=== PATIENT | female | born 1980 | race Hispanic/Latino ===

== ENCOUNTER 2018-08-29 10:26 | Emergency (ER) | payer SELFPAY ==
[2018-08-29] MEDS ORDERED: HYDROCODONE/APAP 5/325 MG TAB ONE (11:40)
[2018-08-29] MEDS ORDERED: KETOROLAC 30 MG/ML INJ ONE (11:40)
[2018-08-29] MEDS ORDERED: ONDANSETRON 4 MG/2 ML VIAL ONE (12:56)
[2018-08-29] MEDS ORDERED: MORPHINE 4 MG/ML SYR ONE (12:56)
[2018-08-29 13:07] LABS: Absolute Lymphocytes (CBC) 2.2 K/uL (0.7-4.9); Absolute Monocytes 0.5 K/uL (0.1-1.3); Absolute Neutrophil 4.2 K/uL (1.8-8.0); Basophils % 0.7 % (0-1.3); Eosinophils % 2.1 % (0-4.4); Lymphocytes % 30.6 % (15.3-44.8); MPV 8.6 fL (7.6-11.3); Monocytes % 7.5 % (3.3-12.3); RBC Red Blood Cell Count 4.22 M/uL (3.86-4.86)
[2018-08-29 13:39] LABS: BUN Blood Urea Nitrogen 9 mg/dL (7-18); Bicarbonate 27 mmol/L (21-32); Glucose Level 87 mg/dL (74-106); Potassium 3.8 mmol/L (3.5-5.1); Sodium Level 140 mmol/L (136-145)
--- NOTE | 2018-08-29 13:40 | RAD REPORT ---
EXAM DESCRIPTION: RAD - Shoulder Left 2 View - 08/29/2018 1:32 pm CLINICAL HISTORY: Left shoulder pain FINDINGS: No fracture or dislocation is seen. No bone or joint abnormality is seen
--- NOTE | 2018-08-29 13:40 | RAD REPORT ---
EXAM DESCRIPTION: RAD - Pelvis - 08/29/2018 1:33 pm CLINICAL HISTORY: Pelvic pain FINDINGS: No fracture or dislocation is seen. No bone or joint abnormality noted
--- NOTE | 2018-08-29 13:41 | RAD REPORT ---
EXAM DESCRIPTION: RAD - Knee Left 3 View - 08/29/2018 1:33 pm CLINICAL HISTORY: Left knee pain FINDINGS: No fracture or dislocation is seen. No bone or joint abnormality
--- NOTE | 2018-08-29 14:15 | ER ---
Nurse's Notes [facility] Name: Lennie Peguero Age: 38 yrs Sex: Female : 1980 Arrival Date: 08/29/2018 Time: 10:28 Bed 24 Private MD: Stefano Mack H Diagnosis: Pain in unspecified shoulder;Pain in unspecified hip;Pain in knee Presentation: 08/29 10:45 Presenting complaint: Patient states: L sided neck pain, radiates down L arm that began ss 08/14/18. Denies injury. Transition of care: patient was not received from another setting of care. Onset of symptoms was August 14, 2018. Risk Assessment: Do you want to hurt yourself or someone else? Patient reports no desire to harm self or others. Initial Sepsis Screen: Does the patient meet any 2 criteria? No. Patient's initial sepsis screen is negative. Does the patient have a suspected source of infection? No. Patient's initial sepsis screen is negative. Care prior to arrival: None. 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 - Social history:: Smoking status: Patient uses tobacco products, smokes one-half pack cigarettes per day. - Ebola Screening: : Patient denies exposure to infectious person Patient denies travel to an Ebola-affected area in the 21 days before illness onset. Screenin:11 Abuse screen: Denies threats or abuse. Nutritional screening: No deficits noted. tw2 Tuberculosis screening: No symptoms or risk factors identified. Fall Risk None identified. Assessment: 11:10 General: Appears in no apparent distress. well groomed, Behavior is calm, cooperative, tw2 appropriate for age. Pain: Pain radiates to left arm Pain began 2-3 days ago. Neuro: Level of Consciousness is awake, alert, obeys commands, Oriented to person, place, time, situation. Cardiovascular: Heart tones S1 S2 Capillary refill < 3 seconds. Respiratory: Airway is patent Respiratory effort is even, unlabored, Respiratory pattern is regular, symmetrical, Breath sounds are clear bilaterally. GI: No signs and/or symptoms were reported involving the gastrointestinal system. : No signs and/or symptoms were reported regarding the genitourinary system. EENT: No signs and/or symptoms were reported regarding the EENT system. Derm: No signs and/or symptoms reported regarding the dermatologic system. Musculoskeletal: Circulation, motion, and sensation intact. 12:20 Reassessment: Patient appears in no apparent distress at this time. No changes from tw2 previously documented assessment. Patient and/or family updated on plan of care and expected duration. Pain level reassessed. Patient is alert, oriented x 3, equal unlabored respirations, skin warm/dry/pink. 13:42 Reassessment: Patient appears in no apparent distress at this time. Patient and/or tw2 family updated on plan of care and expected duration. Pain level reassessed. Patient is alert, oriented x 3, equal unlabored respirations, skin warm/dry/pink. 14:13 Reassessment: provider at bedside at this time. tw2 14:14 Reassessment: Patient appears in no apparent distress at this time. Patient and/or tw2 family updated on plan of care and expected duration. Pain level reassessed. Patient is alert, oriented x 3, equal unlabored respirations, skin warm/dry/pink. Vital Signs: 10:47 BP 143 / 93; Pulse 90; Resp 16; Temp 97.8(TE); Pulse Ox 100% on R/A; Weight 69.85 kg; ss Height 5 ft. 0 in. (152.40 cm); Pain 8/10; 11:36 BP 126 / 98; Pulse 90; Resp 17; Pulse Ox 100% on R/A; tw2 12:30 BP 130 / 71; Pulse 59; Resp 17; Pulse Ox 99% on R/A; tw2 13:42 BP 124 / 99; Pulse 77; Resp 17; Pulse Ox 100% on R/A; tw2 10:47 Body Mass Index 30.08 (69.85 kg, 152.40 cm) ED Course: 10:28 Patient arrived in ED. sb2 10:29 Stefano Mack DO is Private Physician. sb2 10:46 Triage completed. ss 10:47 Arm band placed on right wrist. ss 11:04 Evans Hanson PA is PHCP. [facility] 11:04 Kait Estrella MD is Attending Physician. jmm 11:10 Suzanne Merritt, JEANNIE is Primary Nurse. tw2 11:10 Placed in gown. Bed in low position. Call light in reach. Adult w/ patient. Cardiac tw2 monitor on. Pulse ox on. NIBP on. 11:10 Patient maintains SpO2 saturation greater than 95% on room air. tw2 11:20 Inserted saline lock: 22 gauge in left antecubital area, using aseptic technique. Blood tw2 collected. 13:30 Patient moved to radiology via wheelchair. jb2 13:31 Shoulder Left (2 View) XRAY In Process Unspecified. EDMS 13:31 Pelvis XRAY In Process Unspecified. EDMS 13:31 Knee Left 3 View XRAY In Process Unspecified. EDMS 13:51 X-ray completed. Patient tolerated procedure well. Patient moved back from radiology. mh1 14:13 No provider procedures requiring assistance completed. IV discontinued, intact, tw2 bleeding controlled, No redness/swelling at site. Pressure dressing applied. 14:14 Stefano Mack DO is Referral Physician. [facility] Administered Medications: 11:34 Drug: Ketorolac 30 mg Route: IM; Site: right deltoid; tw2 12:59 Follow up: Response: No adverse reaction; Pain is unchanged, physician notified tw2 11:36 Drug: [place] 5 mg-325 mg 1 tabs Route: PO; tw2 12:59 Follow up: Response: No adverse reaction; Pain is unchanged, physician notified tw2 12:55 Drug: Zofran 4 mg Route: IVP; Site: right antecubital; tw2 14:17 Follow up: Response: No adverse reaction tw2 12:58 Drug: morphine 4 mg Route: IVP; Site: right antecubital; tw2 14:17 Follow up: Response: No adverse reaction; Pain is decreased tw2 Outcome: 14:14 Discharged to home ambulatory, with family. tw2 14:14 Condition: stable 14:14 Discharge instructions given to patient, family, Instructed on discharge instructions, follow up and referral plans. no drinking with medication, no driving heavy equipment, medication usage, Demonstrated understanding of instructions, follow-up care, medications, Prescriptions given X 2. 14:15 Discharge ordered by . saige 14:32 Patient left the ED. tw2 Signatures: Dispatcher [employer] EDMS Evans Hanson PA PA jmm Buechter, Jesse jb2 Kitty June mh1 Orin Grande RN RN ss Suzanne Merritt RN RN tw2 Isela Sam 2
--- NOTE | 2018-08-29 14:16 | EDPHYS ---
Physician Documentation [facility] Name: Lennie Peguero Age: 38 yrs Sex: Female : 1980 Arrival Date: 08/29/2018 Time: 10:28 Bed 24 Private MD: Stefano Mack H ED Physician Kait Estrella HPI: 08/29 11:12 This 38 yrs old Female presents to ER via Ambulatory with complaints of Arm jmm Pain. 11:12 The patient or guardian complains of pain. Onset: The symptoms/episode began/occurred jmm gradually, 5 day(s) ago. Modifying factors: The symptoms are alleviated by remaining still, the symptoms are aggravated by movement. Associated signs and symptoms: Pertinent negatives: fever. This is a 38 year old female with no chronic medical conditions that presents to the ED with complaints of left shoulder pain which began 5 days ago. Patient states then developing pain to the left side of her neck, hips bilaterally, and left knee. Patient denies injury. . 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 - Social history:: Smoking status: Patient uses tobacco products, smokes one-half pack cigarettes per day. - Ebola Screening: : Patient denies exposure to infectious person Patient denies travel to an Ebola-affected area in the 21 days before illness onset. ROS: 11:12 Constitutional: Negative for fever, chills, and weight loss, Cardiovascular: Negative jmm for chest pain, palpitations, and edema, Respiratory: Negative for shortness of breath, cough, wheezing, and pleuritic chest pain. 11:12 MS/extremity: Positive for pain. 11:12 All other systems are negative. Exam: 11:12 Head/Face: atraumatic. Eyes: EOMI, no conjunctival erythema appreciated ENT: Moist jmm Mucus Membranes 11:12 Chest/axilla: Normal chest wall appearance and motion. Cardiovascular: Regular rate and rhythm. No edema appreciated Respiratory: Normal respirations, no respiratory distress appreciated 11:12 Constitutional: The patient appears in no acute distress, alert, awake. 11:12 Neck: C-spine: appears grossly normal, ROM/movement: is normal, mild tenderness on palpation of the left trapezius muscle. 11:12 Musculoskeletal/extremity: ROM: painful rom noted on abduction of the left shoulder, painful rom noted on flexion, internal, and external rotations of the hips bilaterally, pain on flexion of the left knee. compartments are soft, full pulses are appreciated. . 11:12 Skin: Appearance: Color: normal in color. 11:12 Neuro: Orientation: is normal, Mentation: is normal, Memory: is normal. 11:12 Psych: Behavior/mood is pleasant, cooperative. Vital Signs: 10:47 BP 143 / 93; Pulse 90; Resp 16; Temp 97.8(TE); Pulse Ox 100% on R/A; Weight 69.85 kg; ss Height 5 ft. 0 in. (152.40 cm); Pain 8/10; 11:36 BP 126 / 98; Pulse 90; Resp 17; Pulse Ox 100% on R/A; tw2 12:30 BP 130 / 71; Pulse 59; Resp 17; Pulse Ox 99% on R/A; tw2 13:42 BP 124 / 99; Pulse 77; Resp 17; Pulse Ox 100% on R/A; tw2 10:47 Body Mass Index 30.08 (69.85 kg, 152.40 cm) ss MDM: 11:12 Patient medically screened. [facility] 14:14 Data reviewed: vital signs, nurses notes, lab test result(s), radiologic studies, plain [facility] films. Counseling: I had a detailed discussion with the patient and/or guardian regarding: the historical points, exam findings, and any diagnostic results supporting the discharge/admit diagnosis, lab results, radiology results, the need for outpatient follow up, to return to the emergency department if symptoms worsen or persist or if there are any questions or concerns that arise at home. Response to treatment: the patient's symptoms have markedly improved after treatment, and as a result, I will discharge patient. 08/29 12:44 Order name: ESR; Complete Time: 13:45 [facility] 08/29 12:44 Order name: CBC with Diff; Complete Time: 13:45 [facility] 08/29 11:27 Order name: Shoulder Left (2 View) XRAY; Complete Time: 13:45 [facility] 08/29 11:27 Order name: Pelvis XRAY; Complete Time: 13:45 [facility] 08/29 11:27 Order name: Knee Left 3 View XRAY; Complete Time: 13:45 [facility] 08/29 12:44 Order name: BMP; Complete Time: 13:45 [facility] 08/29 12:43 Order name: Saline Lock; Complete Time: 12:59 [facility] Administered Medications: 11:34 Drug: Ketorolac 30 mg Route: IM; Site: right deltoid; tw2 12:59 Follow up: Response: No adverse reaction; Pain is unchanged, physician notified tw2 11:36 Drug: [place] 5 mg-325 mg 1 tabs Route: PO; tw2 12:59 Follow up: Response: No adverse reaction; Pain is unchanged, physician notified tw2 12:55 Drug: Zofran 4 mg Route: IVP; Site: right antecubital; tw2 14:17 Follow up: Response: No adverse reaction tw2 12:58 Drug: morphine 4 mg Route: IVP; Site: right antecubital; tw2 14:17 Follow up: Response: No adverse reaction; Pain is decreased tw2 Disposition: 18:44 Co-signature as Attending Physician, Kait Estrella MD. ma2 Disposition: 08/29/18 14:15 Discharged to Home. Impression: Pain in unspecified shoulder, Pain in unspecified hip, Pain in knee. - Condition is Stable. - Discharge Instructions: Joint Pain. - Prescriptions for Ultracet 37.5- 325 mg Oral Tablet - take 1 tablet by ORAL route every 6 hours - for up to 5 days; do not exceed 8 tablets per day.; 20 tablet. orphenadrine citrate 100 mg Oral Tablet Sustained Release - take 1 tablet by ORAL route 2 times per day As needed; 20 tablet. - Medication Reconciliation Form, Thank You Letter, Antibiotic Education, Prescription Opioid Use, Work release form, Family Work Release form. - Follow up: Stefnao Mack, ; When: 1 - 2 days; Reason: Recheck today's complaints, Continuance of care, Re-evaluation by your physician. Signatures: Dispatcher [employer] EDEvans Lange PA PA jmm Smirch, Shelby, RN RN ss Suzanne Merritt RN RN 2 Kait Estrella MD MD hi2 Corrections: (The following items were deleted from the chart) 14:32 14:15 08/29/2018 14:15 Discharged to Home. Impression: Pain in unspecified shoulder; tw2 Pain in unspecified hip; Pain in knee. Condition is Stable. Forms are Work release form, Medication Reconciliation Form, Thank You Letter, Antibiotic Education, Prescription Opioid Use. Follow up: Stefano Mack; When: 1 - 2 days; Reason: Recheck today's complaints, Continuance of care, Re-evaluation by your physician. saige
[2018-08-29 15:42] VITALS: TEMP 97.8
[2018-08-29 15:47] VITALS: BP 124/99; O2SAT 100
== END 2018-08-29 14:32 | disposition home or self-care (01) ==
LOC: ER 10:26
DX: M25.512 Pain in left shoulder (principal); M25.552 Pain in left hip; M25.562 Pain in left knee
CPT/HCPCS: 36415; 72170; 80048; 85025; 85652; 96372; 96374; 96375; 99285; J2405

== ENCOUNTER 2018-12-05 11:37 | Emergency (ER) | payer SELFPAY ==
--- NOTE | 2018-12-05 12:43 | ER ---
Nurse's Notes [facility] Name: Lennie Peguero Age: 38 yrs Sex: Female : 1980 Arrival Date: 12/05/2018 Time: 11:39 Bed 10 Private MD: Diagnosis: Dental Abscess Presentation: 12/05 11:45 Presenting complaint: Patient states: R jaw/cheek swelling that began yesterday, also ph reports nausea, denies fever/chills or vomiting, states, " I had a tooth that was hurting up there a few days ago but I'm not really in any pain. The swelling just concerned me.". Transition of care: patient was not received from another setting of care. Onset of symptoms was December 05, 2018. Risk Assessment: Do you want to hurt yourself or someone else? Patient reports no desire to harm self or others. Initial Sepsis Screen: Does the patient meet any 2 criteria? No. Patient's initial sepsis screen is negative. Does the patient have a suspected source of infection? No. Patient's initial sepsis screen is negative. Care prior to arrival: None. 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 - Social history:: Smoking status: Patient/guardian denies using tobacco. - Ebola Screening: : No symptoms or risks identified at this time. Screenin:55 Abuse screen: Denies threats or abuse. Denies injuries from another. Nutritional ph screening: No deficits noted. Tuberculosis screening: No symptoms or risk factors identified. Fall Risk None identified. Assessment: 12:20 General: Appears in no apparent distress. comfortable, well groomed, Behavior is calm, ph cooperative, appropriate for age, Denies fever, chills. Pain: Denies pain. Neuro: Level of Consciousness is awake, alert, obeys commands, Oriented to person, place, time, situation. Cardiovascular: Capillary refill < 3 seconds in bilateral fingers Patient's skin is warm and dry. Respiratory: Airway is patent Respiratory effort is even, unlabored, Respiratory pattern is regular, symmetrical, Denies shortness of breath. GI:. GI: Reports nausea, Patient currently denies diarrhea, vomiting. Derm: Skin is intact, is healthy with good turgor, Skin is pink, warm \\T\\ dry. Musculoskeletal: Swelling present in right cheek. Vital Signs: 11:44 BP 118 / 87; Pulse 96; Resp 18; Temp 98.2(O); Pulse Ox 98% on R/A; Weight 71.21 kg; ph Height 5 ft. 0 in. (152.40 cm); Pain 0/10; 11:44 Body Mass Index 30.66 (71.21 kg, 152.40 cm) ph ED Course: 11:39 Patient arrived in ED. as 11:47 Triage completed. ph 11:47 Arm band placed on Patient placed in waiting room, Patient notified of wait time. ph 12:22 Evans Hanson PA is PHCP. [facility] 12:23 Merlin Handley MD is Attending Physician. [facility] 12:42 Andrews Hawthorne DDS is Referral Physician. [facility] 12:43 Orin Grande, JEANNIE is Primary Nurse. ss 12:55 Patient has correct armband on for positive identification. Bed in low position. Call ph light in reach. Side rails up X 1. NIBP on. Door closed. Noise minimized. 12:56 No provider procedures requiring assistance completed. Patient did not have IV access ph during this emergency room visit. Administered Medications: 12:47 Drug: Clindamycin 300 mg Route: PO; ss 12:56 Follow up: Response: No adverse reaction ph 13:01 Follow up: Response: No adverse reaction; Medication administered at discharge. Outcome: 12:43 Discharge ordered by . [facility] 13:02 Discharged to home ambulatory, with significant other. 13:02 Condition: good 13:02 Discharge instructions given to patient, significant other, Instructed on discharge instructions, follow up and referral plans. medication usage, Demonstrated understanding of instructions, follow-up care, medications, Prescriptions given X 2. 13:02 Patient left the ED. Signatures: Evans Hanson PA PA jmm Martinez, Amelia as Smirch, Shelby, RN RN Bolivar, Marine, RN RN ph
--- NOTE | 2018-12-05 12:43 | EDPHYS ---
Physician Documentation [facility] Name: Lennie Peguero Age: 38 yrs Sex: Female : 1980 Arrival Date: 12/05/2018 Time: 11:39 Bed 10 Private MD: ED Physician Merlin Handley HPI: 12/05 12:40 This 38 yrs old Female presents to ER via Ambulatory with complaints of jmm Abscess. 12:40 The patient presents with pain, swelling. Onset: The symptoms/episode began/occurred jmm gradually, 1 day(s) ago. Duration: The symptoms are continuous. Associated signs and symptoms:. This is a 38 year old male with no chronic medical conditions that presents to the ED with complaints of right sided facial pain and swelling. Denies fever and chills. . 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 - Social history:: Smoking status: Patient/guardian denies using tobacco. - Ebola Screening: : No symptoms or risks identified at this time. ROS: 12:40 Constitutional: Negative for fever, chills, and weight loss, Cardiovascular: Negative jmm for chest pain, palpitations, and edema, Respiratory: Negative for shortness of breath, cough, wheezing, and pleuritic chest pain. 12:40 ENT: Positive for dental pain. 12:40 All other systems are negative. Exam: 12:40 Constitutional: This is a well developed, well nourished patient who is awake, alert, jmm and in no acute distress. 12:40 Neck: Trachea midline, Supple Chest/axilla: Normal chest wall appearance and motion. Cardiovascular: Regular rate and rhythm. No edema appreciated Respiratory: Normal respirations, no respiratory distress appreciated Abdomen/GI: Non distended, soft Skin: General appearance color normal MS/ Extremity: Moves all extremities, no obvious deformities appreciated, no edema noted to the lower extremities Neuro: Awake and alert, normal gait 12:40 Head/face: mild right sided maxillary facial swelling. 12:40 ENT: Dental exam: gum swelling, that is moderate, specifically in the upper right first molar (#3) and upper right second bicuspid (#4). 12:40 Neck: no submandibular tenderness appreciated. Vital Signs: 11:44 BP 118 / 87; Pulse 96; Resp 18; Temp 98.2(O); Pulse Ox 98% on R/A; Weight 71.21 kg; ph Height 5 ft. 0 in. (152.40 cm); Pain 0/10; 11:44 Body Mass Index 30.66 (71.21 kg, 152.40 cm) ph MDM: 12:40 Patient medically screened. [facility] 12:41 Data reviewed: vital signs, nurses notes. Counseling: I had a detailed discussion with saige the patient and/or guardian regarding: the historical points, exam findings, and any diagnostic results supporting the discharge/admit diagnosis, the need for outpatient follow up, to return to the emergency department if symptoms worsen or persist or if there are any questions or concerns that arise at home. 12:45 ED course: No submandibular tenderness appreciated. I do not suspect ludwigs angina. I saige advised the patient to follow up with oral surgery and otherwise given strict return precautions. patient understood and agrees with the plan of care. . Administered Medications: 12:47 Drug: Clindamycin 300 mg Route: PO; 12:56 Follow up: Response: No adverse reaction ph 13:01 Follow up: Response: No adverse reaction; Medication administered at discharge. ss Disposition: 12/06 06:52 Co-signature as Attending Physician, Merlin Handley MD I agree with the assessment and kdr plan of care. Disposition: 12/05/18 12:43 Discharged to Home. Impression: Dental Abscess. - Condition is Stable. - Discharge Instructions: Dental Abscess. - Prescriptions for Clindamycin HCl 300 mg Oral Capsule - take 1 capsule by ORAL route every 6 hours for 10 days; 40 capsule. Ultracet 37.5- 325 mg Oral Tablet - take 1 tablet by ORAL route every 6 hours - for up to 5 days; do not exceed 8 tablets per day.; 12 tablet. - Medication Reconciliation Form, Thank You Letter, Antibiotic Education, Prescription Opioid Use form. - Follow up: Andrews Hawthorne DDS; When: 2 - 3 days; Reason: Recheck today's complaints, Continuance of care, Re-evaluation by your physician. Signatures: Merlin Handley MD MD kdr Mickail, Joel, PA PA jmm Smirch, Shelby, JEANNIE RN ss Marine Bolivar RN RN ph Corrections: (The following items were deleted from the chart) 12/05 13:02 12:43 12/05/2018 12:43 Discharged to Home. Impression: Dental Abscess. Condition is ss Stable. Forms are Medication Reconciliation Form, Thank You Letter, Antibiotic Education, Prescription Opioid Use. Follow up: Andrews Hawthorne; When: 2 - 3 days; Reason: Recheck today's complaints, Continuance of care, Re-evaluation by your physician. saige
[2018-12-05] MEDS ORDERED: CLINDAMYCIN HCL 150 MG CAP ONE (12:59)
[2018-12-05 13:06] VITALS: BP 118/87; TEMP 98.2; O2SAT 98
== END 2018-12-05 13:02 | disposition home or self-care (01) ==
LOC: ER 11:37
DX: K04.7 Periapical abscess without sinus (principal)
CPT/HCPCS: 99283

== ENCOUNTER 2019-06-29 17:49 | Emergency (ER) | payer SELFPAY ==
[2019-06-29] MEDS ORDERED: HYDROCODONE/APAP 5/325 MG TAB ONE (19:44)
[2019-06-29] MEDS ORDERED: KETOROLAC 30 MG/ML INJ ONE (19:44)
[2019-06-29] MEDS ORDERED: CLINDAMYCIN HCL 150 MG CAP ONE (19:44)
--- NOTE | 2019-06-29 20:13 | ER ---
Nurse's Notes [facility] Name: Lennie Peguero Age: 38 yrs Sex: Female : 1980 Arrival Date: 06/29/2019 Time: 17:51 Bed 16 Private MD: Diagnosis: Dental caries;Dental root caries Presentation: 06/29 18:18 Presenting complaint: Right upper and lower molar pain 10/10 x 2 days. Transition of care: patient was not received from another setting of care. Onset of symptoms was June 28, 2019. Risk Assessment: Do you want to hurt yourself or someone else? Patient reports no desire to harm self or others. Initial Sepsis Screen: Does the patient meet any 2 criteria? No. Patient's initial sepsis screen is negative. Does the patient have a suspected source of infection? No. Patient's initial sepsis screen is negative. Care prior to arrival: Advil at 1430. 18:18 Method Of Arrival: Ambulatory 18:18 Acuity: BRENTON 4 hb Triage Assessment: 19:00 Pain: Also complains of Toothache. 19:00 Headache History: Denies prior headaches. 19:00 Pain: Pain began 1 day ago. 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 - Social history:: Smoking status: Patient/guardian denies using tobacco. - Ebola Screening: : No symptoms or risks identified at this time. Screenin:00 Abuse screen: Denies threats or abuse. Denies injuries from another. Nutritional screening: No deficits noted. Tuberculosis screening: No symptoms or risk factors identified. Fall Risk None identified. Assessment: 19:00 General: Appears in no apparent distress. Behavior is calm, cooperative, appropriate wh for age. Pain: Complains of pain in lower left second molar (#18) and upper left second molar (#15) Pain does not radiate. Pain currently is 10 out of 10 on a pain scale. Quality of pain is described as aching. Neuro: Level of Consciousness is awake, alert, obeys commands, Oriented to person, place, time, situation, Appropriate for age Reports headache. Cardiovascular: Capillary refill < 3 seconds. Respiratory: Airway is patent Respiratory effort is even, unlabored, Respiratory pattern is regular, symmetrical. GI: Abdomen is flat, non-distended. : No signs and/or symptoms were reported regarding the genitourinary system. EENT: dental carries. Derm: Skin is intact, is healthy with good turgor, Skin is pink, warm \T\ dry. normal. Musculoskeletal: Circulation, motion, and sensation intact. 20:20 Reassessment: Patient appears in no apparent distress at this time. No changes from previously documented assessment. Patient and/or family updated on plan of care and expected duration. Pain level reassessed. Patient is alert, oriented x 3, equal unlabored respirations, skin warm/dry/pink. Vital Signs: 18:20 BP 135 / 85; Pulse 90; Resp 16; Temp 98.7; Pulse Ox 100% ; Weight 79.38 kg; Height 5 hb ft. (152.40 cm); Pain 10/10; 19:45 BP 118 / 65; Pulse 80; Resp 18; Pulse Ox 99% on R/A; wh 18:20 Body Mass Index 34.18 (79.38 kg, 152.40 cm) hb ED Course: 17:51 Patient arrived in ED. as 18:19 Triage completed. hb 18:20 Arm band placed on. hb 18:47 Kera Avery FNP-C is [facility]. snw 18:47 Wesley Kwok MD is Attending Physician. snw 19:00 Patient has correct armband on for positive identification. Bed in low position. Call light in reach. Side rails up X 1. Pulse ox on. NIBP on. 19:40 Angel Friend is Primary Nurse. wh 20:23 No provider procedures requiring assistance completed. Patient did not have IV access during this emergency room visit. Administered Medications: 19:53 Drug: Clindamycin 300 mg Route: PO; 20:25 Follow up: Response: No adverse reaction 19:55 Drug: [place] 5 mg-325 mg 1 tabs Route: PO; 20:25 Follow up: Response: No adverse reaction; Pain is decreased; RASS: Alert and Calm (0) 19:57 Drug: TORadol 30 mg Route: IM; Site: right gluteus; 20:25 Follow up: Response: No adverse reaction Outcome: 20:12 Discharge ordered by . chase 20:18 Discharged to home ambulatory. 20:18 Condition: stable 20:18 Discharge instructions given to patient, Instructed on discharge instructions, follow up and referral plans. no drinking with medication, no driving heavy equipment, medication usage, POC Dental Abscess Demonstrated understanding of instructions, follow-up care, medications, POC Prescriptions given X 3. 20:26 Patient left the ED. Signatures: Kera Avery, MEN'S GOLF COACH-C MEN'S GOLF COACH-Georgettew Agatha Cardona Heather, RN RN [place]
--- NOTE | 2019-06-29 20:14 | EDPHYS ---
Physician Documentation [facility] Name: Lennie Peguero Age: 38 yrs Sex: Female : 1980 Arrival Date: 06/29/2019 Time: 17:51 Bed 16 Private MD: ED Physician Wesley Kwok HPI: 06/29 20:10 This 38 yrs old Female presents to ER via Ambulatory with complaints of snw Headache, Toothache. 20:10 The patient presents with broken tooth/teeth. The problem is located in the lower left snw second molar (#18) and upper left second molar (#15). Onset: The symptoms/episode began/occurred suddenly, 3 day(s) ago, and became worse and became persistent. Duration: The symptoms are continuous. Associated signs and symptoms: Pertinent positives: pain, swelling. Severity of symptoms: At their worst the symptoms were moderate, severe. It is unknown whether or not the patient has had similar symptoms in the past. The patient has not recently seen a physician, awaiting insurance. 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 - Social history:: Smoking status: Patient/guardian denies using tobacco. - Ebola Screening: : No symptoms or risks identified at this time. ROS: 20:09 Constitutional: Negative for fever, chills, and weight loss, Eyes: Negative for injury, snw pain, redness, and discharge, Neck: Negative for injury, pain, and swelling, Cardiovascular: Negative for chest pain, palpitations, and edema, Respiratory: Negative for shortness of breath, cough, wheezing, and pleuritic chest pain, Abdomen/GI: Negative for abdominal pain, nausea, vomiting, diarrhea, and constipation, Back: Negative for injury and pain, : Negative for injury, bleeding, discharge, and swelling, MS/Extremity: Negative for injury and deformity, Skin: Negative for injury, rash, and discoloration, Neuro: Negative for headache, weakness, numbness, tingling, and seizure, Psych: Negative for depression, anxiety, suicide ideation, homicidal ideation, and hallucinations. 20:09 ENT: Positive for dental pain. Exam: 20:09 Constitutional: This is a well developed, well nourished patient who is awake, alert, snw and in no acute distress. Head/Face: Normocephalic, atraumatic. Eyes: Pupils equal round and reactive to light, extra-ocular motions intact. Lids and lashes normal. Conjunctiva and sclera are non-icteric and not injected. Cornea within normal limits. Periorbital areas with no swelling, redness, or edema. Neck: Trachea midline, no thyromegaly or masses palpated, and no cervical lymphadenopathy. Supple, full range of motion without nuchal rigidity, or vertebral point tenderness. No Meningismus. Chest/axilla: Normal chest wall appearance and motion. Nontender with no deformity. No lesions are appreciated. Cardiovascular: Regular rate and rhythm with a normal S1 and S2. No gallops, murmurs, or rubs. Normal PMI, no JVD. No pulse deficits. Respiratory: Lungs have equal breath sounds bilaterally, clear to auscultation and percussion. No rales, rhonchi or wheezes noted. No increased work of breathing, no retractions or nasal flaring. Abdomen/GI: Soft, non-tender, with normal bowel sounds. No distension or tympany. No guarding or rebound. No evidence of tenderness throughout. Back: No spinal tenderness. No costovertebral tenderness. Full range of motion. Skin: Warm, dry with normal turgor. Normal color with no rashes, no lesions, and no evidence of cellulitis. MS/ Extremity: Pulses equal, no cyanosis. Neurovascular intact. Full, normal range of motion. Neuro: Awake and alert, GCS 15, oriented to person, place, time, and situation. Cranial nerves II-XII grossly intact. Motor strength 5/5 in all extremities. Sensory grossly intact. Cerebellar exam normal. Normal gait. Psych: Awake, alert, with orientation to person, place and time. Behavior, mood, and affect are within normal limits. 20:09 ENT: External ear(s): are unremarkable, Ear canal(s): are normal, TM's: are normal, Nose: is normal, Mouth: is normal, Posterior pharynx: is normal, Dental exam: fractured teeth are noted, gum swelling, that is moderate, specifically in the upper left second molar (#15) and lower left second molar (#18). Vital Signs: 18:20 BP 135 / 85; Pulse 90; Resp 16; Temp 98.7; Pulse Ox 100% ; Weight 79.38 kg; Height 5 hb ft. (152.40 cm); Pain 10/10; 19:45 BP 118 / 65; Pulse 80; Resp 18; Pulse Ox 99% on R/A; wh 18:20 Body Mass Index 34.18 (79.38 kg, 152.40 cm) hb MDM: 19:14 Patient medically screened. snw 20:12 Data reviewed: vital signs, nurses notes. Data interpreted: Pulse oximetry: on room air snw is 100 %. Interpretation: normal. Counseling: I had a detailed discussion with the patient and/or guardian regarding: the historical points, exam findings, and any diagnostic results supporting the discharge/admit diagnosis, the need for outpatient follow up, to return to the emergency department if symptoms worsen or persist or if there are any questions or concerns that arise at home. Special discussion: Based on the history and exam findings, there is no indication for further emergent testing or inpatient evaluation. I discussed with the patient/guardian the need to see a dentist for further evaluation of the symptoms. I discussed with the patient/guardian the need to see the punchboard stuffer for further evaluation of the symptoms. I discussed with the patient/guardian the need to see the primary care provider for further evaluation of the symptoms. Administered Medications: 19:53 Drug: Clindamycin 300 mg Route: PO; 20:25 Follow up: Response: No adverse reaction 19:55 Drug: [place] 5 mg-325 mg 1 tabs Route: PO; 20:25 Follow up: Response: No adverse reaction; Pain is decreased; RASS: Alert and Calm (0) 19:57 Drug: TORadol 30 mg Route: IM; Site: right gluteus; 20:25 Follow up: Response: No adverse reaction Disposition: 06/29/19 20:12 Discharged to Home. Impression: Dental caries, Dental root caries. - Condition is Stable. - Discharge Instructions: Dental Caries, Adult, Dental Pain, Diet and Dental Disease, Preventive Dental Care, Adult. - Prescriptions for chlorhexidine gluconate 0.12 % Mucous Membrane mouthwash - place 15 milliliter by MUCOUS MEMBRANE route 2 times per day after brushing teeth, swish in mouth for 30 seconds then spit out; 480 milliliter. Clindamycin HCl 300 mg Oral Capsule - take 1 capsule by ORAL route every 6 hours for 10 days; 40 capsule. Tylenol- Codeine #3 300-30 mg Oral Tablet - take 2 tablets by ORAL route every 6 hours As needed; 14 tablet. - Medication Reconciliation Form, Thank You Letter, Antibiotic Education, Prescription Opioid Use, Family Work Release form. - Follow up: Emergency Department; When: As needed; Reason: Worsening of condition. Follow up: Private Physician; When: 2 - 3 days; Reason: Recheck today's complaints, Continuance of care, Re-evaluation by your physician. Addendum: 07/01/2019 07:40 Co-signature as Attending Physician, Wesley Kwok MD. r n Signatures: Kera Avery, TIN TIE MACHINE OPERATOR AUTOMATIC-C TIN TIE MACHINE OPERATOR AUTOMATIC-Csnw Wesley Kwok MD MD rn Baxter, Heather, RN RN hb Habalo, Winsy wh Corrections: (The following items were deleted from the chart) 06/29 20:26 20:12 06/29/2019 20:12 Discharged to Home. Impression: Dental caries; Dental root wh caries. Condition is Stable. Discharge Instructions: Dental Caries, Adult, Dental Pain, Diet and Dental Disease, Preventive Dental Care, Adult. Prescriptions for chlorhexidine gluconate 0.12 % Mucous Membrane mouthwash - place 15 milliliter by MUCOUS MEMBRANE route 2 times per day after brushing teeth, swish in mouth for 30 seconds then spit out; 480 milliliter, Clindamycin HCl 300 mg Oral Capsule - take 1 capsule by ORAL route every 6 hours for 10 days; 40 capsule, Tylenol-Codeine #3 300-30 mg Oral Tablet - take 2 tablets by ORAL route every 6 hours As needed; 14 tablet. and Forms are Medication Reconciliation Form, Thank You Letter, Antibiotic Education, Prescription Opioid Use. Follow up: Emergency Department; When: As needed; Reason: Worsening of condition. Follow up: Private Physician; When: 2 - 3 days; Reason: Recheck today's complaints, Continuance of care, Re-evaluation by your physician. snw
[2019-06-29 20:44] VITALS: TEMP 98.7
[2019-06-29 20:46] VITALS: BP 118/65; O2SAT 99
== END 2019-06-29 20:26 | disposition home or self-care (01) ==
LOC: ER 17:49
DX: K02.7 Dental root caries (principal)
CPT/HCPCS: 96372; 99283

== ENCOUNTER 2020-11-30 02:56 | Emergency (ER) | payer OTHER, SELFPAY ==
[2020-11-30 04:44] LABS: Urine Blood Negative (Negative); Urine Glucose Negative (Negative); Urine Protein Negative (Negative); Urine Specific Gravity 1.025 (1.005-1.030)
[2020-11-30] MEDS ORDERED: ONDANSETRON 4 MG (ODT) TAB ONE (04:57)
--- NOTE | 2020-11-30 05:56 | ER ---
Nurse's Notes [facility] Name: Lennie Peguero Age: 40 yrs Sex: Female : 1980 Arrival Date: 11/30/2020 Time: 03:03 Bed DIS3 Private MD: Diagnosis: Gastroenteritis Presentation: 11/30 03:47 Chief complaint: Patient states: pain in right low back , fever, diarrhea +nausea , no iw urinary s/s, started about 3 days ago. Coronavirus screen: Client presents with at least one sign or symptom that may indicate coronavirus-19. Ebola Screen: Patient negative for fever greater than or equal to 101.5 degrees Fahrenheit, and additional compatible Ebola Virus Disease symptoms Patient denies exposure to infectious person. Patient denies travel to an Ebola-affected area in the 21 days before illness onset. No symptoms or risks identified at this time. Initial Sepsis Screen: Does the patient meet any 2 criteria? No. Patient's initial sepsis screen is negative. Does the patient have a suspected source of infection? No. Patient's initial sepsis screen is negative. Risk Assessment: Do you want to hurt yourself or someone else? Patient reports no desire to harm self or others. Onset of symptoms was November 27, 2020. 03:47 Method Of Arrival: Ambulatory iw 03:47 Acuity: BRENTON 3 iw MANAGER VALIDATION: 03:50 LMP 11/25/2020 iw Historical: - Allergies: 03:49 No Known Allergies; iw - Home Meds: 03:49 Adderall XR Oral [Active]; iw - PMHx: 03:49 None; iw - PSHx: 03:49 right ankle; ; iw - Immunization history:: Adult Immunizations not up to date. - Social history:: Smoking status: Patient reports the use of cigarette tobacco products, smokes one-half pack cigarettes per day. Screenin:08 Abuse screen: Denies threats or abuse. Denies injuries from another. Nutritional iw screening: No deficits noted. Tuberculosis screening: No symptoms or risk factors identified. Fall Risk None identified. Assessment: 04:08 General: Appears in no apparent distress. Behavior is calm, cooperative. Pain: iw Complains of pain in right low back. Neuro: Level of Consciousness is awake, alert, obeys commands, Oriented to person, place, time, situation, Moves all extremities. Full function. Cardiovascular: Patient's skin is warm and dry. Respiratory: Respiratory effort is even, unlabored, Respiratory pattern is regular, symmetrical. GI: Abdomen is non-distended, Reports diarrhea. Derm: Skin is intact, is healthy with good turgor. Vital Signs: 03:47 BP 138 / 96; Pulse 92; Resp 16; Temp 97.2; Pulse Ox 99% on R/A; Weight 75.75 kg; Height iw 5 ft. 0 in. (152.40 cm); Pain 2/10; 03:47 Body Mass Index 32.61 (75.75 kg, 152.40 cm) iw ED Course: 03:03 Patient arrived in ED. bp1 03:49 Triage completed. iw 03:50 Arm band placed on. iw 03:52 Yu Lopez, RN is Primary Nurse. iw 04:05 Montez Krishnan MD is Attending Physician. [facility] Administered Medications: 04:46 Drug: Zofran (Ondansetron) 4 mg Route: PO; iw Outcome: 05:55 Discharge ordered by . 7 05:58 Patient left the ED. iw Signatures: Yu Lopez, JEANNIE RN Cassy Hardy [facility] Montez Krishnan MD MD 7
--- NOTE | 2020-11-30 05:56 | EDPHYS ---
Physician Documentation [facility] Name: Lennie Peguero Age: 40 yrs Sex: Female : 1980 Arrival Date: 11/30/2020 Time: 03:03 Bed DIS3 Private MD: ED Physician Montez Krishnan HPI: 11/30 05:03 This 40 yrs old Female presents to ER via Ambulatory with complaints of mh7 Nausea/Vomiting/Diarrhea, Headache, Fever. 05:03 The patient presents to the emergency department with nausea, that is mild, diarrhea, mh7 that is intermittent. Onset: The symptoms/episode began/occurred 3 day(s) ago. Possible causes: sick contacts, by family, , son. The symptoms are aggravated by nothing. The symptoms are alleviated by nothing. Associated signs and symptoms: Pertinent positives: diarrhea, nausea. 05:04 Severity of symptoms: At their worst the symptoms were moderate 2 day(s) ago, in the [facility] emergency department the symptoms have improved moderately. Whole family with similar symptoms.. 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 - Social history:: Smoking status: Patient reports the use of cigarette tobacco products, smokes one-half pack cigarettes per day. ROS: 05:04 Constitutional: Negative for fever, chills, and weight loss, Eyes: Negative for injury, mh7 pain, redness, and discharge, ENT: Negative for injury, pain, and discharge, Neck: Negative for injury, pain, and swelling, Cardiovascular: Negative for chest pain, palpitations, and edema, Respiratory: Negative for shortness of breath, cough, wheezing, and pleuritic chest pain. 05:04 : Negative for injury, bleeding, discharge, and swelling, MS/Extremity: Negative for injury and deformity, Skin: Negative for injury, rash, and discoloration, Neuro: Negative for headache, weakness, numbness, tingling, and seizure, Psych: Negative for depression, anxiety, suicide ideation, homicidal ideation, and hallucinations, Allergy/Immunology: Negative for hives, rash, and allergies, Endocrine: Negative for neck swelling, polydipsia, polyuria, polyphagia, and marked weight changes, Hematologic/Lymphatic: Negative for swollen nodes, abnormal bleeding, and unusual bruising. 05:04 Back: Positive for lower back pain, Negative for injury or acute deformity, decreased range of motion, pain at rest, pain with movement, radiated pain. Exam: 05:04 Constitutional: This is a well developed, well nourished patient who is awake, alert, mh7 and in no acute distress. Head/Face: Normocephalic, atraumatic. Eyes: Pupils equal round and reactive to light, extra-ocular motions intact. Lids and lashes normal. Conjunctiva and sclera are non-icteric and not injected. Cornea within normal limits. Periorbital areas with no swelling, redness, or edema. ENT: Nares patent. No nasal discharge, no septal abnormalities noted. Tympanic membranes are normal and external auditory canals are clear. Oropharynx with no redness, swelling, or masses, exudates, or evidence of obstruction, uvula midline. Mucous membranes moist. Neck: Trachea midline, no thyromegaly or masses palpated, and no cervical lymphadenopathy. Supple, full range of motion without nuchal rigidity, or vertebral point tenderness. No Meningismus. Chest/axilla: Normal chest wall appearance and motion. Nontender with no deformity. No lesions are appreciated. Cardiovascular: Regular rate and rhythm with a normal S1 and S2. No gallops, murmurs, or rubs. Normal PMI, no JVD. No pulse deficits. Respiratory: Lungs have equal breath sounds bilaterally, clear to auscultation and percussion. No rales, rhonchi or wheezes noted. No increased work of breathing, no retractions or nasal flaring. Abdomen/GI: Soft, non-tender, with normal bowel sounds. No distension or tympany. No guarding or rebound. No evidence of tenderness throughout. Back: No spinal tenderness. No costovertebral tenderness. Full range of motion. Skin: Warm, dry with normal turgor. Normal color with no rashes, no lesions, and no evidence of cellulitis. MS/ Extremity: Pulses equal, no cyanosis. Neurovascular intact. Full, normal range of motion. Neuro: Awake and alert, GCS 15, oriented to person, place, time, and situation. Cranial nerves II-XII grossly intact. Motor strength 5/5 in all extremities. Sensory grossly intact. Cerebellar exam normal. Normal gait. Psych: Awake, alert, with orientation to person, place and time. Behavior, mood, and affect are within normal limits. Vital Signs: 03:47 BP 138 / 96; Pulse 92; Resp 16; Temp 97.2; Pulse Ox 99% on R/A; Weight 75.75 kg; Height iw 5 ft. 0 in. (152.40 cm); Pain 2/10; 03:47 Body Mass Index 32.61 (75.75 kg, 152.40 cm) iw MDM: 05:54 Differential diagnosis: gastritis, viral gastroenteritis, gastroenteritis. Data [facility] reviewed: vital signs, nurses notes. Data interpreted: Pulse oximetry: on room air is 99 %. Interpretation: normal. Counseling: I had a detailed discussion with the patient and/or guardian regarding: the historical points, exam findings, and any diagnostic results supporting the discharge/admit diagnosis, the need for outpatient follow up, to return to the emergency department if symptoms worsen or persist or if there are any questions or concerns that arise at home. Response to treatment: the patient's symptoms have resolved after treatment, the patient's blood pressure is in an acceptable range, mental status has returned to baseline, the patient no longer shows bradycardia, the patient is not short of breath, the patient is not tachycardic, the patient's pain is gone, the patient's temperature has normalized. 05:55 Patient medically screened. [facility] 05:56 Refusal of service: The patient/guardian displays adequate decision making capability [facility] and despite a detailed discussion of alternatives, benefits, risks, and consequences refuses: prescription. 11/30 04:44 Order name: Urine Dipstick-Ancillary EDMT 11/30 04:42 Order name: Urine Dipstick-Ancillary (obtain specimen); Complete Time: 04:46 7 11/30 04:42 Order name: Urine Test (obtain specimen); Complete Time: 04:46 7 11/30 04:42 Order name: PO challenge; Complete Time: 05:02 7 Administered Medications: 04:46 Drug: Zofran (Ondansetron) 4 mg Route: PO; iw Disposition: 11/30/20 05:55 Discharged to Home. Impression: Gastroenteritis. - Condition is Stable. - Discharge Instructions: Viral Gastroenteritis, Adult, [id number]. - Medication Reconciliation Form, Thank You Letter, Antibiotic Education, Prescription Opioid Use form. - Follow up: Private Physician; When: 1 - 2 days; Reason: Worsening of condition, Recheck today's complaints, Continuance of care, Re-evaluation by your physician. - Problem is new. - Symptoms have improved. Signatures: Dispatcher [employer] Yu Ding RN RN iw Holmes, Maurice, MD MD mh7 Corrections: (The following items were deleted from the chart) 05:58 05:55 11/30/2020 05:55 Discharged to Home. Impression: Gastroenteritis. Condition is iw Stable. Forms are Medication Reconciliation Form, Thank You Letter, Antibiotic Education, Prescription Opioid Use. Follow up: Private Physician; When: 1 - 2 days; Reason: Worsening of condition, Recheck today's complaints, Continuance of care, Re-evaluation by your physician. Problem is new. Symptoms have improved. mh7
[2020-11-30 06:10] VITALS: BP 138/96; TEMP 97.2; O2SAT 99
== END 2020-11-30 05:58 | disposition home or self-care (01) ==
LOC: ER 02:56
DX: K52.9 Noninfective gastroenteritis and colitis, unspecified (principal); F17.210 Nicotine dependence, cigarettes, uncomplicated
CPT/HCPCS: 81003; 99282

== ENCOUNTER 2022-12-14 22:55 | Emergency (ER) | payer SELFPAY ==
--- OUTSIDE RECORDS SUMMARY | 2022-12-14 22:58 | XMS REPORT | Continuity of Care Document ---
:1980 Author Organization [facility] t Address [address] [facility] [place] [address] Care Team Providers Name Role Phone PCP, PATIENT DOES NOT HAVE A Primary Care Physician Unavaila KAMERON Ledesma Attending Clinician Unavailable Kameron Ta MD Attending Clinician Tonya Patiño CMA Attending Clinician TONYA PATIÑO Attending Clinician Unavailable Vicenta Bolden DO Attending Clinician VICENTA BOLDEN Attending Clinician Unavailable KAMERON TA Admitting Clinician Unavailable Payers Payer Name Policy Type Policy Number Effective Date Expiration Date S tal[place] [facility] [place] 7 [id number] 2021 WOMEN PLAN 00:00:00 [facility] [place] [id number] 2020 WOMEN 00:00:00 MEDICAID PENDING PENDING 2020 00:00:00 Problems Condition Condition Condition Status Onset Resolution Last Treating Co mments Source Name Details Category Date Date Treatment Clinician Date No known No known Disease Unive rs active active ity of problems problems [facility] Allergies, Adverse Reactions, Alerts Allergy Allergy Status Severity Reaction(s) Onset Inactive Treating Comm ents Source Name Type Date Date Clinician NO KNOWN Drug Active Univers ALLERGIE Class ity of S [facility] Social History Social Habit Start Date Stop Date Quantity Comments Source Exposure to Not sure [facility] SARS-CoV-2 (event) Medica l Branch Sex Assigned At [birth year] [facility] 00:00:00 00:00:00 Medical Branch Smoking Status Start Date Stop Date Source Unknown if ever smoked [facility] Medical Branch Medications Ordered Filled Start Stop Current Ordering Indication Dosage Frequency Signature Comments Components Source Medication Medication Date Date Medication? Clinician (SIG) Name Name morpHINE 2020-07- No 4mg 4 mg, Slow Un paulino injection 4 07-31 IV Push, ity of mg 21:00: 20:00 ONCE, 1 [place] 00 :00 dose, On Medical Mon Branch 05/31/21 at 1600, STAT ketorolac 2020-07 No 30mg 30 mg, Unive rs (TORADOL) 07-31 Slow IV ity of injection 20:45: 20:00 Push, [place] 30 mg 00 :00 ONCE, 1 Medical dose, On Branch [facility] 05/31/21 at 1545, VIRIDIANA
Fa culty member approving Restricted medication : KAMERON TA iopamidol 2020-07 No [id number] 120mL 120 mL, Univers (ISOVUE 07-31 Intravenou ity o f 370-500 mL) 18:42: 18:43 s, ONCE, 1 [place] injection 00 :00 dose, On Medica l 120 mL [facility] Branch 05/31/21 at 1400, Routine methylPREDN 2020-07 Yes [id number] Take by Univers ISolone 4 07-31 mouth ity of mg tablets 00:00: SEE-INSTRU [place] 00 CTIONS. Medical follow Branch package directions diazePAM 2020-07 Yes [id number] 5mg Take 1 Uni vers (VALIUM) 5 07-31 tablet by ity of mg tablet 00:00: mouth 3 [place] 00 (three) Medical times Branch daily as needed for Muscle Spasms. traMADoL 50 Yes [id number] 50mg Take 1 Univ ers mg tablet 9-05 tablet by ity o f 00:00: mouth [place] 00 every 6 Medical (six) Branch hours as needed for Pain (scale 4-6). Indication s: acute pain ibuprofen Yes [id number] 600mg Take 1 Univers 600 mg 9-05 tablet by ity of tablet 00:00: mouth [place] 00 every 6 Medical (six) Branch hours as needed for Pain (scale 4-6). amoxicillin Yes [id number] 500mg Take 1 Univers 500 mg 9-05 capsule by ity of capsule 00:00: mouth 3 [place] 00 (three) Medical times Branch daily. traMADoL 50 2020-0 Yes [id number] 50mg Take 1 Univ ers mg tablet 9-05 tablet by ity o f 00:00: mouth [place] 00 every 6 Medical (six) Branch hours as needed for Pain (scale 4-6). Indication s: acute pain ibuprofen 2020-0 Yes [id number] 600mg Take 1 Univers 600 mg 9-05 tablet by ity of tablet 00:00: mouth [place] 00 every 6 Medical (six) Branch hours as needed for Pain (scale 4-6). amoxicillin 2020-0 Yes [id number] 500mg Take 1 Univers 500 mg 9-05 capsule by ity of capsule 00:00: mouth 3 [place] 00 (three) Medical times Branch daily. traMADoL 50 2020-0 Yes [id number] 50mg Take 1 Univ ers mg tablet 9-05 tablet by ity o f 00:00: mouth [place] 00 every 6 Medical (six) Branch hours as needed for Pain (scale 4-6). Indication s: acute pain ibuprofen 0 Yes [id number] 600mg Take 1 Univers 600 mg 9-05 tablet by ity of tablet 00:00: mouth [place] 00 every 6 Medical (six) Branch hours as needed for Pain (scale 4-6). amoxicillin 2020-0 Yes [id number] 500mg Take 1 Univers 500 mg 9-05 capsule by ity of capsule 00:00: mouth 3 [place] 00 (three) Medical times Branch daily. ibuprofen Yes 400mg Take 1 Unive rs (MOTRIN) 8-23 tablet by ity of 400 mg 00:00: mouth [place] tablet 00 every 6 Medical (six) Branch hours as needed for Pain (scale 1-3). famotidine 0 Yes 20mg Take 1 Unive rs (PEPCID) 20 8-23 tablet by [place]y of mg tablet [place] bed[place]. Medical Branch ibuprofen 2015-0 Yes 400mg Take 1 Unive rs (MOTRIN) 8-23 tablet by ity of 400 mg 00:00: mouth [place] tablet 00 every 6 Medical (six) Branch hours as needed for Pain (scale 1-3). famotidine 2015-0 Yes 20mg Take 1 Unive rs (PEPCID) 20 8-23 tablet by ity of mg tablet [place] bed[place]. Medical Branch ibuprofen 2016-0 Yes 400mg Take 1 Unive rs (MOTRIN) 8-23 tablet by ity of 400 mg 00:00: mouth [place] tablet 00 every 6 Medical (six) Branch hours as needed for Pain (scale 1-3). famotidine 2015-0 Yes 20mg Take 1 Unive rs (PEPCID) 20 8-23 tablet by ity of mg tablet [place] bedtime. Medical Branch ibuprofen 2016-0 Yes 400mg Take 1 Unive rs (MOTRIN) 8-23 tablet by ity of 400 mg 00:00: mouth [place] tablet 00 every 6 Medical (six) Branch hours as needed for Pain (scale 1-3). famotidine 2015-0 Yes 20mg Take 1 Unive rs (PEPCID) 20 8-23 tablet by ity of mg tablet [place] bed[place]. Medical Branch Vital Signs Vital Name Observation Time Observation Value Comments Source Systolic blood 2021-05-31 20:05:00 125 mm[Hg] Univer sity of pressure [facility] Diastolic blood 2021-05-31 20:05:00 91 mm[Hg] Unive rsity of [facility] Heart rate 2021-05-31 20:05:00 71 /min [facility] Respiratory rate 2021-05-31 20:05:00 18 /min [facility] Oxygen saturation in 2021-05-31 20:05:00 100 /min [facility] Arterial blood by [facility] Pulse oximetry Branch Body temperature 2021-05-31 18:08:45 36.44 Pretty [facility] Systolic blood 2021-04-04 16:45:00 133 mm[Hg] Univer sity of [facility] Diastolic blood 2021-04-04 16:45:00 88 mm[Hg] Unive rsity of [facility] Heart rate 2021-04-04 16:45:00 84 /min [facility] Body temperature 2021-04-04 16:45:00 37 Pretty [facility] Respiratory rate 2021-04-04 16:45:00 18 /min [facility] Body weight 2021-04-04 16:45:00 70.308 kg Universi [facility] BMI 2021-04-04 16:45:00 30.27 kg/m2 [facility] Oxygen saturation in 2021-04-04 16:45:00 100 /min University of Arterial blood by [facility] Pulse oximetry Branch Body height 2020-12-29 15:53:00 152.4 cm Universi [facility] Body weight 2020-12-29 15:53:00 75.751 kg [facility] BMI 2020-12-29 15:53:00 32.61 kg/m2 [facility] Oxygen saturation in 2020-12-29 15:53:00 100 /min University of Arterial blood by [facility] Pulse oximetry Branch Systolic blood 2020-12-29 15:53:00 130 mm[Hg] [facility] Diastolic blood 2020-12-29 15:53:00 82 mm[Hg] [facility] Heart rate 2020-12-29 15:53:00 93 /min [facility] Body temperature 2020-12-29 15:53:00 36.72 Pretty [facility] Respiratory rate 2020-12-29 15:53:00 18 /min [facility] Procedures Procedure Date / Time Performing Clinician Source Performed CT ABDOMEN PELVIS W 2021-05-31 18:50:14 Kameron Ta [facility] POCT TEST 2021-05-31 18:14:00 Kameron Ta [facility] URINALYSIS 2021-05-31 18:13:00 Kameron Ta [facility] LIPASE 2021-05-31 17:49:00 Kameron Ta [facility] TROPONIN I 2021-05-31 17:49:00 Kameron Ta [facility] COMP. METABOLIC PANEL 2021-05-31 17:49:00 Kameron Ta [facility] ([id number]) [facility] CBC WITH DIFF 2021-05-31 17:49:00 Kameron Ta [facility] PROTHROMBIN TIME / INR 2021-05-31 17:49:00 Kameron Ta [facility] ACTIVATED PARTIAL 2021-05-31 17:49:00 Kameron Ta [facility] THRMPLAS BRIDGETTE [facility] N-TERMINAL PRO-BNP 2021-05-31 17:49:00 aKmeron Ta [facility] y [facility] [place] [facility] [place] ASSIGNMENT OF BENEFITS 2021-05-31 17:37:13 Doctor Unassigned, No University [facility] Name Medical Branch XR CHEST 1 2021-05-31 15:57:40 Kameron Ta [place] o f [facility] XR SPINE THORACIC 2 2021-05-31 15:57:40 Kameron Ta [facility] CONSENT/REFUSAL FOR 2021-05-31 15:01:39 Doctor Unassigned, No [facility] [place] [facility] Name Medical Branch RAPID STREP SCREEN FOR 2021-04-04 16:46:[address] [facility] GROUP A Medical [place] COVID-19 (ID NOW RAPID 2021-04-04 16:46:00 [facility] TESTING) Medical Branch CONSENT/REFUSAL FOR 2021-04-04 16:41:31 Doctor Unassigned, No [facility] [place] [facility] Name Medical Branch NOTICE OF PRIVACY 2020-12-29 15:49:02 Doctor Unassigned, No Univ [facility] [place] [facility] Name Medical Branch CONSENT/REFUSAL FOR 2020-12-29 15:48:43 Doctor Unassigned, No Un [facility] [place] [facility] Name Medical Branch Encounters Start End Encounter Admission Attending Care Care Encounter Source Date/Time Date/Time Type Type Clinicians Facility Department ID 2021-08-11 Outpatient D [facility] [id number] [facility] 13:56:21 [id number] Health Depart ent 2021-05-31 2021-05-31 Emergency X CHERISE TA ERT [id number] Univers 10:19:00 15:14:00 KAMERON pan [facility] 2021-05-31 2021-05-31 Emergency CHERISE Ta [id number] Univers 10:19:00 15:14:00 Kameron MANUEL 350.1.13.10 i ty JOE 4.2.7.2.686 [facility] [id number] [address] 2021-05-20 2021-05-20 Office ALEXANDRIA Patiño [id number] 09:51:24 12:39:13 Visit Tonya CRUZ [id number] .[id number] 2021-05-20 2021-05-20 Outpatient BRITTANI PATIÑO [facility] [id number] [address] [place] [address] 07:51:24 10:39:13 [facility] 2021-04-04 2021-04-04 [facility] [id number] Univers 11:47:00 13:08:00 Kameron Manuel 350.1.13.10 i osiel [facility] 4.2.7.2.686 [facility] [id number] [address] 2021-04-04 2021-04-04 Emergency [facility] [id number] Univers 11:47:00 11:47:00 KAMERON pan [facility] 2020-12-29 2020-12-29 [facility] [id number] Univers 10:54:00 11:20:00 Vicenta Manuel 350.1.13.10 maxim [facility] 4.2.7.2.686 [facility] [id number] [address] 2020-12-29 2020-12-29 [facility] [id number] Univers 10:48:00 10:48:00 VICENTA pan [facility] Results Test Description Test Time Test Comments Results Result Comments Source TROPONIN I 2021-05-31 18:35:03 Test Item Value Reference Range Interpretation Comme nts TROPONIN I (test code = <0.012 See_Comment [Au tomated message] The 6967310236) system which ge nerated this result tra nsmitted reference range : <=0.034 ng/mL. The refe rence range was not u sed to interpret this result as normal/abnormal . CHRISTEN (test code = CHRISTEN) Reference (Normal) Range (defined by the 99th percentile reference limit): <= 0.034 ng/mL Note: Cardiac troponin begins to rise 3-4 hours after the onset of ischemia. Repeat in 4-6 hours if the sample was drawn within 3-4 hours of the onset of the symptom and found normal. Diagnosis of myocardial injury is made with acute changes in cTn concentrations with at least one serial sample above the 99th percentile upper reference limit (URL), taken together with the patient's clinical presentation. Biotin has been reported to cause a negative bias, interpret results relative to patient's use of biotin. Lab Interpretation Normal (test code = 14398-4) [id number] 18:31:41 Test Item Value Reference Range Interpretation Comments NT-proBNP (test code 53 pg/mL See_Comment [Autom ated = [id number]) message] The system which generated this result transmitted reference range : <=125. The reference range was not used to interpret this result as normal/abnormal . CHRISTEN (test code = CHRISTEN) Biotin has been reported to cause a negative bias, interpret results relative to patient's use of biotin. Lab Interpretation Normal (test code = 82260-7) [facility] TH[facility] [id number] 18:21:42 Test Item Value Reference Range Interpretation Comments APTT Patient (test See_Comment [Automat ed code = 3173-2) message] The system which generated this result transmitted reference range : 23 - 38 Seconds . The reference range was not used to interpr et this result as normal/abnormal . CHRISTEN (test code = CHRISTEN) The [facility] patient population mean normal value for aPTT is 30 seconds. Lab Interpretation Normal (test code = 17223-5) [facility] / [id number] 18:19:42 Test Item Value Reference Range Interpretation Comments PROTIME PATIENT (test See_Comment L [Auto mated message] code = 5964-2) The system wh ich generated this result transmitted ref erence range: 12.0 - 1 4.7 Seconds. The reference range was not used to int erpret this result as normal/abnormal . INR (test code = 6301-6) Nor mal INR <1.1; Warfarin Therap eutic range 2.0 to 3. 0 or 2.5 to 3.5, dep ending upon the indica tions. Lab Interpretation (test Abnormal code = 08323-9) [facility] (05656)2021-05-31 18:17:02 Test Item Value Reference Range Interpretation Comments NA (test code = 138 mmol/L 135-145 6118052522) K (test code = 4.0 mmol/L 3.5-5.0 1144245947) CL (test code = 104 mmol/L 98-108 1110577185) CO2 TOTAL (test code 30 mmol/L 23-31 = 8840819205) AGAP (test code = 2-16 3955199712) BUN (test code = 11 mg/dL 7-23 1081786470) GLUCOSE (test code = 98 mg/dL 70-110 5005541996) CREATININE (test code 0.67 mg/dL 0.50-1.04 = 5153800092) TOTAL BILI (test code 0.3 mg/dL 0.1-1.1 = 0576837688) CALCIUM (test code = 9.3 mg/dL 8.6-10.6 9411381715) T PROTEIN (test code 8.0 g/dL 6.3-8.2 = 4747498868) ALBUMIN (test code = 4.3 g/dL 3.5-5.0 3790980424) ALK PHOS (test code = 86 U/L 34-122 3210849135) ALTv (test code = 19 U/L 5-35 1742-6) AST(SGOT) (test code 26 U/L 13-40 = 2239500800) eGFR (test code = mL/min/1.73m2 8697101241) CHRISTEN (test code = CHRISTEN) Association of Glomerular Filtration Rate (GFR) and Staging of Kidney Disease* + + +- +| GFR (mL/min/1.73 m2) ?| With Kidney Damage ?| ?Without Kidney Damage+ ------+ ----+ ------+| ?>90 ?| ?Stage one ?| ? Normal ?+ -+ + -+| ?60-89 ?| ?Stage two ?| ? Decreased GFR ? + + +- +| ?30-59 ?| ?Stage three ?| ? Stage three ? + + +- +| ?15-29 ?| ?Stage four ? | ? Stage four ?+ -+ + -+| ?<15 (or dialysis) ? ?| ?Stage five ? | ? Stage five ?+ -+ + -+ *Each stage assumes the associated GFR level has been in effect for at least three months. ?Stages 1 to 5, with or without kidney disease, indicate chronic kidney disease. Notes: Determination of stages one and two (with eGFR >59mL/min/1.73 m2) requires estimation of kidney damage for at least three months as defined by structural or functional abnormalities of the kidney, manifested by either:Pathological abnormalities or Markers of kidney damage (including abnormalities in the composition of the blood or urine or abnormalities in imaging tests). [facility] 18:17:02 Test Item Value Reference Range Interpretation Comments LIPASE (test code = 2543125038) 111 U/L 0-220 Lab Interpretation (test code = Normal 58743-2) [facility] [id number] 18:14:00 Test Item Value Reference Range Interpretation Comments POCT PREG (test code = 1605) negative POCT PREG LOT # (test code = 3575) [id number] POCT PREG TEST DATE (test 2022-07-30 code = 3576) Lab Interpretation (test code = Normal 21037-5) [facility] WITH [id number] 18:04:58 Test Item Value Reference Range Interpretation Comments WBC (test code = See_Comment [Automated 7294-2) message] The sy stem which generated this result transmitted reference range : 4.30 - 11.10 10*3/?L. The reference range was not used to interpret this result as normal/abnormal . RBC (test code = See_Comment [Automated 803-5) message] The sy stem which generated this result transmitted reference range : 3.93 - 5.25 10*6/?L. The reference range was not used to interpret this result as normal/abnormal . HGB (test code = 11.5 g/dL 11.6-15.0 L 718-7) HCT (test code = 37.2 % 35.7-45.2 4544-3) MCV (test code = 89.9 fL 80.6-95.5 787-2) MCH (test code = 27.8 pg 25.9-32.8 785-6) MCHC (test code = 30.9 g/dL 31.6-35.1 L 786-4) RDW-SD (test code = 45.1 fL 39.0-49.9 34008-1) RDW-CV (test code = 13.7 % 12.0-15.5 788-0) PLT (test code = See_Comment [Automated 777-3) message] The sy stem which generated this result transmitted reference range : 166 - 358 10*3/ ?L. The reference r josiane was not used to interpret this result as normal/abnormal . MPV (test code = 9.9 fL 9.5-12.9 49354-0) NRBC/100 WBC (test See_Comment [Automat ed code = 5034373849) message] The system which generated this result transmitted reference range : 0.0 - 10.0 /100 WBCs. The refer ence range was not u sed to interpret th is result as normal/abnormal . NRBC x10^3 (test code <0.01 See_Comment [Auto mated = 1677719119) message] The s ystem which generated this result transmitted reference range : 10*3/?L. The reference range was not used to interpret this result as normal/abnormal . GRAN MAT (NEUT) % 49.3 % (test code = 770-8) IMM GRAN % (test code 0.20 % = 7597346084) LYMPH % (test code = 40.2 % 736-9) MONO % (test code = 8.5 % 5905-5) EOS % (test code = 1.2 % 713-8) BASO % (test code = 0.6 % 706-2) GRAN MAT x10^3(ANC) 2.51 10*3/uL 1.88-7.09 (test code = 6250221272) IMM GRAN x10^3 (test <0.03 0.00-0.06 code = 0197579321) LYMPH x10^3 (test code 2.04 10*3/uL 1.32-3.29 = 731-0) MONO x10^3 (test code 0.43 10*3/uL 0.33-0.92 = 742-7) EOS x10^3 (test code = 0.06 10*3/uL 0.03-0.39 711-2) BASO x10^3 (test code 0.03 10*3/uL 0.01-0.07 = 704-7) Lab Interpretation Abnormal (test code = 40856-6) [facility] STREP SCREEN FOR GROUP [id number] 17:23:40 Test Item Value Reference Range Interpretation Comments Streptococcus pyogenes (group A) Negative Negative antigen (test code = 88102-1) Lab Interpretation (test code = Normal 55564-2) [facility] STREP SCREEN FOR GROUP [id number] 17:23:40 Test Item Value Reference Range Interpretation Comments Streptococcus pyogenes (group A) Negative Negative antigen (test code = 34811-0) Lab Interpretation (test code = Normal 59225-9) [facility]-19 (ID NOW RAPID TESTING)2021-04-04 17:13:58 Test Item Value Reference Range Interpretation Comments SARS-CoV-2 Rapid ID NOW Not Detected Not Detected (test code = 22353-8) CHRISTEN (test code = CHRISTEN) ID NOW COVID-19 Assay is an isothermal nucleic acid amplification test intended for the qualitative detection of nucleic acid from SARS-CoV-2 viral RNA in nasopharyngeal ([employer]ING [employer]NALYST) specimens. It is used under Emergency Use Authorization (EUA) by FDA. The limit of detection (LOD) of the assay is 125 Genome Equivalents/mL. A positive result is indicative of the presence of SARS-CoV-2 RNA. ?Clinical correlation with patient history and other diagnostic information is necessary to determine patient infection status. A negative (Not Detected) result does not preclude SARS-CoV-2 infection. In patients with clinical symptoms and other tests that are consistent with SARS-CoV-2 infection, negative results should be treated as presumptive negative and a new specimen should be tested with alternative PCR molecular test. Invalid: Please collect a new specimen for repeat patient testing if clinically indicated. Lab Interpretation Normal (test code = 00375-2) [facility]-19 (ID NOW RAPID TESTING)2021-04-04 17:13:58 Test Item Value Reference Range Interpretation Comments SARS-CoV-2 Rapid ID NOW Not Detected Not Detected (test code = 73719-7) CHRISTEN (test code = CHRISTEN) ID NOW COVID-19 Assay is an isothermal nucleic acid amplification test intended for the qualitative detection of nucleic acid from SARS-CoV-2 viral RNA in nasopharyngeal ([employer] PLANNING ANALYST) specimens. It is used under Emergency Use Authorization (EUA) by FDA. The limit of detection (LOD) of the assay is 125 Genome Equivalents/mL. A positive result is indicative of the presence of SARS-CoV-2 RNA. ?Clinical correlation with patient history and other diagnostic information is necessary to determine patient infection status. A negative (Not Detected) result does not preclude SARS-CoV-2 infection. In patients with clinical symptoms and other tests that are consistent with SARS-CoV-2 infection, negative results should be treated as presumptive negative and a new specimen should be tested with alternative PCR molecular test. Invalid: Please collect a new specimen for repeat patient testing if clinically indicated. Lab Interpretation Normal (test code = 35482-5) [facility]"
[2022-12-14] MEDS ORDERED: HYDROCODONE/CHLORPHEN 5 ML/OSYR ONE (23:39)
[2022-12-14] MEDS ORDERED: IBUPROFEN 400 MG TAB ONE (23:40)
[2022-12-14] MEDS ORDERED: ONDANSETRON 4 MG (ODT) TAB ONE (23:40)
[2022-12-15] MEDS ORDERED: AZITHROMYCIN 250 MG TAB ONE (00:32)
[2022-12-15] MEDS ORDERED: AMOX/K CLAV 875 MG TAB ONE (00:32)
--- NOTE | 2022-12-15 00:42 | EDPHYS ---
Physician Documentation [facility] Name: Lennie Peguero Age: 42 yrs Sex: Female : 1980 Arrival Date: 12/14/2022 Time: 22:55 Bed 11 Private MD: ED Physician Sera Yan HPI: 12/14 23:30 This 42 yrs old Female presents to ER via Ambulatory with complaints of Fever, cp Congestion. 23:30 The patient reports fever, not measured (subjective). cp 23:30 Onset: The symptoms/episode began/occurred 3 day(s) ago. Associated signs and symptoms: cp Pertinent positives: cough, sore throat, chest congestion, body aches, Pertinent negatives: diarrhea, vomiting. Severity of symptoms: in the emergency department the symptoms are unchanged despite home interventions. Historical: - Allergies: 23:02 No Known Allergies; kl - PMHx: 23:02 None; kl - PSHx: 23:02 None; kl - Immunization history:: Adult Immunizations not immunized. - Social history:: Smoking status: Patient reports the use of cigarette tobacco products, smokes one pack cigarettes per day. Reported history of juuling and/or vaping. ROS: 23:35 Constitutional: Positive for body aches, Negative for fever, poor PO intake. cp 23:35 Eyes: Negative for injury, pain, redness, and discharge. cp 23:35 ENT: Positive for sore throat, Negative for drainage from ear(s), ear pain, difficulty swallowing, difficulty handling secretions. 23:35 Neck: Negative for pain with movement, pain at rest, stiffness. 23:35 Respiratory: Positive for cough, "sounds productive". 23:35 Abdomen/GI: Negative for abdominal pain, vomiting, diarrhea, constipation. 23:35 Neuro: Negative for altered mental status, syncope, weakness. 23:35 All other systems are negative. Exam: 23:40 Constitutional: The patient appears in no acute distress, alert, awake, cp non-diaphoretic, non-toxic, well developed, well nourished. 23:40 Head/Face: Normocephalic, atraumatic. cp 23:40 Eyes: Periorbital structures: appear normal, Conjunctiva: normal, no exudate, no injection, Sclera: no appreciated abnormality, Lids and lashes: appear normal, bilaterally. 23:40 ENT: External ear(s): are unremarkable, Ear canal(s): are normal, clear, TM's: dullness, bilaterally, Nose: is normal, Mouth: Lips: moist, Oral mucosa: moist, Posterior pharynx: Airway: no evidence of obstruction, patent, Tonsils: no enlargement, no exudate, erythema, that is mild, exudate, is not appreciated. 23:40 Neck: ROM/movement: is normal, is supple, without pain, no range of motions limitations, no meningismus. 23:40 Chest/axilla: Inspection: normal. 23:40 Cardiovascular: Rate: tachycardic, Rhythm: regular, Edema: is not appreciated, JVD: is not appreciated. 23:40 Respiratory: the patient does not display signs of respiratory distress, Respirations: normal, no use of accessory muscles, no retractions, labored breathing, is not present, Breath sounds: bronchial sounds, that are mild, are heard diffusely, stridor, is not appreciated, + upper airway congestion. wheezing: is not appreciated. 23:40 Abdomen/GI: Inspection: abdomen appears normal, Palpation: abdomen is soft and non-tender, in all quadrants. 23:40 Back: pain, is absent, ROM is normal. 23:40 Neuro: Orientation: to person, place \\T\\ time. Mentation: is normal, Motor: moves all fours, strength is normal, Sensation: is normal. Vital Signs: 23:00 BP 125 / 80; Pulse 110; Resp 18; Temp 98.9(TE); Pulse Ox 96% ; Weight 72.57 kg; Height kl 5 ft. 0 in. ; Pain 10/10; 12/15 00:29 Temp 98.8(O); as6 12/14 23:00 Body Mass Index 31.25 (72.57 kg, 152.4 cm) 12/14 23:00 Pain Scale: Adult kl MDM: 12/14 23:15 Patient medically screened. 12/15 00:00 Differential diagnosis: viral Infection, bacterial infection, bronchitis, pneumonia cp gastroenteritis, meningitis. 00:40 Data reviewed: vital signs, nurses notes, lab test result(s), radiologic studies, plain cp films. 00:40 I considered the following discharge prescriptions or medication management in the cp emergency department Medications were administered in the Emergency Department. See MAR. Test considered but Not performed: Labs: cbc, bmp. Counseling: I had a detailed discussion with the patient and/or guardian regarding: the historical points, exam findings, and any diagnostic results supporting the discharge/admit diagnosis, lab results, radiology results, to return to the emergency department if symptoms worsen or persist or if there are any questions or concerns that arise at home. Response to treatment: the patient's symptoms have markedly improved after treatment, and as a result, I will discharge patient. 12/14 23:21 Order name: Flu; Complete Time: 00:23 vg1 12/15 00:23 Interpretation: Reviewed. cp 12/14 23: Order name: COVID-19 SARS RT PCR; Complete Time: 00: vg1 12/15 00:23 Interpretation: Reviewed. 12/14 23:25 Order name: XRAY Chest Pa And Lat (2 Views) cp Administered Medications: 12/14 23:38 Drug: Tussionex Pennkinetic ER PO Suspension 5 ml Route: PO; vg1 12/15 00:31 Follow up: Response: No adverse reaction as6 12/14 23:38 Drug: Ondansetron PO 4 mg Route: PO; vg1 12/15 00:31 Follow up: Response: No adverse reaction as6 12/14 23:38 Drug: Ibuprofen PO 800 mg Route: PO; vg1 12/15 00:32 Follow up: Response: No adverse reaction as6 00:29 Drug: Amoxicillin-Clavulanate PO 875 mg Route: PO; as6 00:32 Follow up: Response: No adverse reaction as6 00:29 Drug: AZITHromycin PO 500 mg Route: PO; as6 00:32 Follow up: Response: No adverse reaction as6 Disposition Summary: 12/15/22 00:41 Discharge Ordered Location: Home cp Problem: new cp Symptoms: have improved cp Condition: Stable cp Diagnosis - Other pneumonia, unspecified organism cp Followup: cp - With: Private Physician - When: 2 - 3 days - Reason: Recheck today's complaints Discharge Instructions: - Discharge Summary Sheet cp - Community-Acquired Pneumonia, Adult cp Forms: - Medication Reconciliation Form cp - Thank You Letter cp - Antibiotic Education cp - Prescription Opioid Use cp - Work release form as6 Prescriptions: - albuterol sulfate 90 mcg/actuation Inhalation HFA Aerosol Inhaler - inhale 2 puff by INHALATION route every 4-6 hours as needed for shortness of cp breath or wheezing; 1 unit; Refills: 0, Product Selection Permitted - Bromfed DM 2-30-10 mg/5 mL Oral syrup - administer 10 milliliter by ORAL route every 6 hours; 180 milliliter; Refills: cp 0, Product Selection Permitted - Augmentin 875-125 mg Oral Tablet - take 1 tablet by ORAL route every 12 hours for 10 days; 20 tablet; Refills: 0, cp Product Selection Permitted - Zithromax Z-Florian 250 mg Oral Tablet - take 1 tablet by ORAL route as directed for 5 days Day 1 - take two (2) tablets cp one time. Day 2, 3, 4 , 5 take one (1) tablet once daily.; 6 tablet; Refills: 0, Product Selection Permitted Signatures: Dispatcher [employer] Loreto Goodrich, RN RN Gonzalo Piper PA PA cp Garcia, Victoria, RN RN vg1 Gilbert Ferguson RN RN as6
--- NOTE | 2022-12-15 00:42 | ER ---
Nurse's Notes [facility] Name: Lennie Peguero Age: 42 yrs Sex: Female : 1980 Arrival Date: 12/14/2022 Time: 22:55 Bed 11 Private MD: Diagnosis: Other pneumonia, unspecified organism Presentation: 12/14 23:00 Chief complaint: Patient states: fever dough congestion body aches x 3 days. Coronavirus screen: Vaccine status: Patient reports being unvaccinated. Ebola Screen: Patient negative for fever greater than or equal to 101.5 degrees Fahrenheit, and additional compatible Ebola Virus Disease symptoms. Initial Sepsis Screen: Does the patient meet any 2 criteria? HR > 90 bpm. Does the patient have a suspected source of infection? No. Patient's initial sepsis screen is negative. Risk Assessment: Do you want to hurt yourself or someone else? Patient reports no desire to harm self or others. Onset of symptoms was December 11, 2022. Care prior to arrival: None. 23:00 Method Of Arrival: Ambulatory kl 23:00 Acuity: [place] 4 kl Triage Assessment: 23:03 General: Appears uncomfortable, Behavior is calm, cooperative. Pain: Complains of pain kl in general body aches. EENT: Reports nasal congestion. Neuro: [place] Agitation-Sedation Scale (RASS):. Cardiovascular: No deficits noted. Respiratory: Reports cough that is productive, Breath sounds are clear bilaterally. Historical: - Allergies: 23:02 No Known Allergies; kl - PMHx: 23:02 None; kl - PSHx: 23:02 None; kl - Immunization history:: Adult Immunizations not immunized. - Social history:: Smoking status: Patient reports the use of cigarette tobacco products, smokes one pack cigarettes per day. Reported history of juuling and/or vaping. Screenin:08 [facility] ED Fall Risk Assessment (Adult) History of falling in the last 3 months, vg1 including since admission No falls in past 3 months (0 pts). Abuse screen: Denies threats or abuse. Denies injuries from another. Nutritional screening: No deficits noted. Tuberculosis screening: No symptoms or risk factors identified. Assessment: 23:08 General: Appears in no apparent distress. uncomfortable, Behavior is calm, cooperative. vg1 Pain: Complains of pain in generalize body Pain began 2-3 days ago. Neuro: Level of Consciousness is awake, alert, obeys commands, Oriented to person, place, time, situation. Cardiovascular: Patient's skin is warm and dry. Respiratory: Reports cough that is productive, Airway is patent Respiratory effort is even, unlabored, Breath sounds are clear bilaterally. GI: Reports nausea, Patient currently denies vomiting. EENT: Reports nasal congestion nasal discharge Denies difficulty swallowing. Derm: Skin is intact, Skin is pink, warm \T\ dry. Vital Signs: 23:00 BP 125 / 80; Pulse 110; Resp 18; Temp 98.9(TE); Pulse Ox 96% ; Weight 72.57 kg; Height kl 5 ft. 0 in. ; Pain 10/10; 12/15 00:29 Temp 98.8(O); as6 12/14 23:00 Body Mass Index 31.25 (72.57 kg, 152.4 cm) 12/14 23:00 Pain Scale: Adult ED Course: 12/14 22:58 Patient arrived in ED. ag3 23:02 Triage completed. kl 23:04 Gonzalo Zamarripa PA is PHCP. cp 23:04 Sera Yan MD is Attending Physician. cp 23:06 Shadia Caceres, RN is Primary Nurse. vg1 23:08 Patient has correct armband on for positive identification. Bed in low position. Call vg1 light in reach. Side rails up X 1. 23:08 No provider procedures requiring assistance completed. Patient did not have IV access vg1 during this emergency room visit. 23:10 Arm band placed on. vg1 23:28 COVID-19 SARS RT PCR Sent. vg1 23:28 Flu Sent. vg1 23:28 COVID swab sent to lab. Flu and/or RSV swab sent to lab. vg1 23:54 XRAY Chest Pa And Lat (2 Views) In Process Unspecified. EDMS Administered Medications: 23:38 Drug: Tussionex Pennkinetic ER PO Suspension 5 ml Route: PO; vg1 12/15 00:31 Follow up: Response: No adverse reaction as6 12/14 23:38 Drug: Ondansetron PO 4 mg Route: PO; vg1 12/15 00:31 Follow up: Response: No adverse reaction as12/14 23:38 Drug: Ibuprofen PO 800 mg Route: PO; vg1 12/15 00:32 Follow up: Response: No adverse reaction as6 00:29 Drug: Amoxicillin-Clavulanate PO 875 mg Route: PO; as6 00:32 Follow up: Response: No adverse reaction as6 00:29 Drug: AZITHromycin PO 500 mg Route: PO; as 00:32 Follow up: Response: No adverse reaction as6 Medication: 12/14 23:08 VIS not applicable for this client. vg1 Outcome: 12/15 00:32 Condition: stable as6 00:41 Discharge ordered by MD. cp 00:49 Discharged to home ambulatory, with friend. as6 00:49 Discharge instructions given to patient, Instructed on discharge instructions, follow up and referral plans. medication usage, Demonstrated understanding of instructions, follow-up care, medications, Prescriptions given X 4. 00:49 Patient left the ED. as6 Signatures: Dispatcher [employer] EDLoreto Randall RN RN kl Page, Corey, PA PA cp Gomez, Alice 3 Shadia Caceres RN RN vg1 Gilbert Ferguson RN RN as6
[2022-12-15 00:55] VITALS: BP 125/80; TEMP 98.8; O2SAT 96
--- NOTE | 2022-12-15 12:23 | RAD REPORT ---
EXAM DESCRIPTION: RAD - Chest Pa And Lat (2 Views) - 12/14/2022 11:52 pm CLINICAL HISTORY: 42-year-old female with cough. TECHNIQUE: Two-view, PA and lateral projections of the chest were obtained. COMPARISON: None. FINDINGS: Unremarkable cardiac and mediastinal silhouette. Heart size is normal. Round opacity is identified at the level of the left lower lobe raising the concern for consolidation /infectious process. Lungs are otherwise clear without focal opacity, pneumothorax or pleural effusions. The visualized bones are within normal limits. IMPRESSION: Round opacity is identified at the level of the left lower lobe raising the concern for consolidation/infectious process, less likely pulmonary nodule however cannot be completely excluded. Please correlate with patient's clinical findings and follow-up for resolution. Electronically signed by: Marisela Rudolph MD 12/15/2022 12:08 AM CDT Due to temporary technical issues with the PACS/Fluency reporting system, reports are being signed by the in house radiologists without review as a courtesy to insure prompt reporting. The interpreting radiologist is fully responsible for the content of the report.
== END 2022-12-15 00:49 | disposition home or self-care (01) ==
LOC: ER 22:55
DX: J18.8 Other pneumonia, unspecified organism (principal); Z20.822 Contact with and (suspected) exposure to COVID-19
CPT/HCPCS: 71046; 87804; 99284; Q0162; U0003

== ENCOUNTER 2023-05-28 12:17 | Emergency (ER) | payer SELFPAY ==
--- OUTSIDE RECORDS SUMMARY | 2023-05-28 12:21 | XMS REPORT | Continuity of Care Document ---
:1980 Author Organization [facility] t Address [address] [facility] [address] [place] [id number] Care Team Providers Name Role Phone PCP, [...] Effective Date Expiration Date S tal[place] [facility] [place] 7 [id number] 2021 WOMEN PLAN 00:00:00 [place] [id number] 2020 WOMEN 00:00:00 MEDICAID PENDING PENDING 2020 00:00:00 Problems Condition Condition Condition Status Onset Resolution Last Treating Co mments Source Name Details Category Date Date Treatment Clinician Date No known No known Disease Unive rs active active ity of problems problems [facility] Allergies, Adverse Reactions, Alerts Allergy Allergy Status Severity Reaction(s) Onset Inactive Treating Comm ents Source Name Type Date Date Clinician NO KNOWN Drug Active Univers ALLERGIE Class ity of S [facility] Social History Social Habit Start Date Stop Date Quantity Comments Source Exposure to Not sure [facility] SARS-CoV-2 (event) Medica l Branch Sex Assigned At [birth year] [facility] 00:00:00 00:00:00 Medical Branch Smoking Status Start Date Stop Date Source Unknown if ever smoked [facility] [place] [facility] Medications Ordered Filled Start Stop Current Ordering Indication Dosage Frequency Signature Comments Components Source Medication Medication Date Date Medication? Clinician (SIG) Name Name morpHINE 2020-07 4mg 4 mg, Slow Un paulino injection 4 07-31 IV Push, ity of mg 21:00: 20:00 ONCE, 1 [place] 00 :00 dose, On Medical [facility] 05/31/21 at 1600, STAT ketorolac 2020-07 30mg 30 mg, Unive rs (TORADOL) 07-31 Slow IV ity of injection 20:45: 20:00 Push, [place] 30 mg 00 :00 ONCE, 1 Medical dose, On Branch [facility] 05/31/21 at 1545, VIRIDIANA
Fa culty member approving Restricted medication : GILDARDOBELIAKAMERON iopamidol 2020-07 [id number] 120mL 120 mL, Univers (ISOVUE 07-31 Intravenou ity o f 370-500 mL) 18:42: 18:43 s, ONCE, 1 [place] injection 00 :00 dose, On Medica l 120 mL [facility] 05/31/21 at 1400, Routine methylPREDN 2020-07 Yes [id number] Take by Univers ISolone 4 07-31 mouth ity of mg tablets 00:00: SEE-INSTRU T [place] 00 CTIONS. Medical follow Branch package directions diazePAM 2020-07 Yes [id number] 5mg Take 1 Uni vers (VALIUM) 5 [...] 4-6). Indication s: acute pain ibuprofen Yes [id number] 600mg Take 1 Univers 600 mg 9-05 tablet by ity of tablet 00:00: mouth [place] 00 every 6 Medical (six) Branch hours as needed for Pain (scale 4-6). amoxicillin Yes [id number] 500mg Take 1 Univers 500 mg 9-05 capsule by ity of capsule 00:00: mouth 3 [place] 00 (three) Medical times Branch daily. traMADoL 50 2020-0 Yes [id number] 50mg Take 1 Univ ers mg tablet 9-05 tablet by ity o f 00:00: mouth [place] 00 every 6 Medical (six) Branch hours as needed for Pain (scale 4-6). Indication s: acute pain ibuprofen 0 Yes [id number] 600mg Take 1 Univers 600 mg 9-05 tablet by ity of tablet 00:00: mouth [place] 00 every 6 Medical (six) Branch hours as needed for Pain (scale 4-6). amoxicillin 0 Yes [id number] 500mg Take 1 Univers 500 mg 9-05 capsule by ity of capsule 00:00: mouth 3 [place] 00 (three) Medical times Branch daily. traMADoL 50 0 Yes [id number] 50mg Take 1 Univ ers mg tablet 9-05 tablet by ity o f 00:00: mouth [place] 00 every 6 Medical (six) Branch hours as needed for Pain (scale 4-6). Indication s: acute pain ibuprofen Yes [id number] 600mg Take 1 Univers 600 mg 9-05 tablet by ity of tablet 00:00: mouth [place] 00 every 6 Medical (six) Branch hours as needed for Pain (scale 4-6). amoxicillin 0 Yes [id number] 500mg Take 1 [place] 500 mg 9-05 [...] [place] 00 bedtime. Medical Branch ibuprofen 0 Yes 400mg Take 1 Unive rs (MOTRIN) [...] 2021-05-31 20:05:00 125 mm[Hg] Univer [facility]ity [facility] Diastolic blood 2021-05-31 20:05:00 91 mm[Hg] Unive rsity [facility] Heart rate 2021-05-31 20:05:00 71 /min [facility] Respiratory rate 2021-05-31 20:05:00 18 /min [facility] Oxygen saturation in 2021-05-31 20:05:00 100 /min [facility] Arterial blood by [facility] Pulse oximetry Branch Body temperature 2021-05-31 18:08:45 36.44 Pretty [facility] Systolic blood 2021-04-04 16:45:00 133 mm[Hg] [facility]iver [facility] Diastolic blood 2021-04-04 16:45:00 88 mm[Hg] Unive rsity [facility] Heart rate 2021-04-04 16:45:00 84 /min [facility] Body temperature 2021-04-04 16:45:00 37 Pretty [facility] Respiratory rate 2021-04-04 16:45:00 18 /min [facility] Body weight 2021-04-04 16:45:00 70.308 kg Universi [facility] BMI 2021-04-04 16:45:00 30.27 kg/m2 [facility] in 2021-04-04 16:45:00 100 /min University of Arterial blood by [facility] Pulse oximetry Branch Body temperature 2020-12-29 15:53:00 36.72 Pretty [facility] rate 2020-12-29 15:53:00 18 /min [facility] Body height 2020-12-29 15:53:00 152.4 cm Universi [facility] Body weight 2020-12-29 15:53:00 75.751 kg [facility] BMI 2020-12-29 15:53:00 32.61 kg/m2 [facility] Oxygen saturation in 2020-12-29 15:53:00 100 /min University of Arterial blood by [facility] Pulse oximetry Branch Systolic blood 2020-12-29 15:53:00 130 mm[Hg] [facility] Diastolic blood 2020-12-29 15:53:00 82 mm[Hg] [facility] Heart rate 2020-12-29 15:53:00 93 /min [facility] Procedures Procedure Date / Time Performing Clinician Source Performed CT ABDOMEN PELVIS W 2021-05-31 18:50:14 Kameron Ta [facility] POCT TEST 2021-05-31 18:14:00 Kameron Ta [facility] URINALYSIS 2021-05-31 18:13:00 Kameron Ta [facility] LIPASE 2021-05-31 17:49:00 Kameron Ta [facility] TROPONIN I 2021-05-31 17:49:00 Kameron Ta [facility] COMP. METABOLIC PANEL 2021-05-31 17:49:00 Kameron Ta [facility] ([id number]) [facility] CBC WITH DIFF 2021-05-31 17:49:00 Kameron Ta [facility] PROTHROMBIN TIME / INR 2021-05-31 17:49:00 [facility]on [facility] ACTIVATED PARTIAL 2021-05-31 17:49:00 Kameron Ta [facility] THRMPLAS [facility] Branch N-TERMINAL PRO-BNP 2021-05-31 17:49:00 [facility] [place] [facility] [place] ASSIGNMENT OF BENEFITS 2021-05-31 17:37:13 Doctor Unassigned, No [facility] Name Medical Branch XR CHEST 1 2021-05-31 15:57:40 Kameron Ta [place] [facility] XR SPINE THORACIC 2 2021-05-31 15:57:40 Kameron Ta [facility] CONSENT/REFUSAL FOR 2021-05-31 15:01:39 Doctor Unassigned, No [facility] [place] [facility] Name Medical Branch RAPID STREP SCREEN FOR 2021-04-04 16:46:00 [facility] Medical Branch COVID-19 (ID NOW RAPID 2021-04-04 16:46:00 [facility] TESTING) Medical Branch CONSENT/REFUSAL FOR 2021-04-04 16:41:31 Doctor Unassigned, No [facility] [place] [facility] Name Medical Branch NOTICE OF PRIVACY 2020-12-29 15:49:02 Doctor Unassigned, No [facility] [place] [facility] Name Medical Branch CONSENT/REFUSAL FOR 2020-12-29 15:48:43 Doctor Unassigned, No [facility] [place] [facility] Name Medical [place] Encounters Start End Encounter Admission Attending Care Care Encounter Source Date/Time Date/Time Type Type Clinicians Facility Department ID 2021-08-11 Outpatient D [facility] [id number] 13:56:21 [id number] Health Depart ent 2021-05-31 2021-05-31 Emergency X LAURA TA ERT [id number] Univers 10:19:00 15:14:00 KAMERON pan [facility] 2021-05-31 2021-05-31 Emergency LAURA Ta [id number] Univers 10:19:00 15:14:00 Kameron MANUEL [id number] i [facility] JOE [id number] [facility] [id number] [address] 2021-05-20 2021-05-20 Office ALEXANDRIA Patiño [id number] 09:51:24 12:39:13 Visit Tonya CRUZ [id number] 2021-05-20 2021-05-20 Outpatient BRITTANI PATIÑO Radha [id number] [address] [place] [address] 07:51:24 10:39:13 SHENATRE Healt h Depart ent 2021-04-04 2021-04-04 [facility] [id number] Univers 11:47:00 13:08:00 Kameron Manuel [id number] i osiel [facility] [id number] [facility] [id number] [address] 2021-04-04 2021-04-04 Emergency [facility] [id number] Univers 11:47:00 11:47:00 [facility] 2020-12-29 2020-12-29 [facility] [id number] Univers 10:54:00 11:20:00 Vicenta Manuel [id number] maxim [facility] [id number] [facility] [id number] [address] 2020-12-29 2020-12-29 Emergency [facility] [id number] Univers 10:48:00 10:48:00 VICENTA pan [facility] Results Test Description Test Time Test Comments Results Result Comments Source TROPONIN I 2021-05-31 18:35:03 Test Item Value Reference Range Interpretation Comme nts TROPONIN I (test code = <0.012 See_Comment [Au tomated message] The 5072501869) system which ge nerated this result tra [...] biotin. Lab Interpretation Normal (test code = 50883-4) [id number] 18:31:41 Test Item Value Reference Range Interpretation Comments NT-proBNP (test code 53 pg/mL See_Comment [Autom ated = 7952971532) message] The system which generated this result transmitted reference range : <=125. The reference range was not used to interpret this result as normal/abnormal . CHRISTEN (test code = CHRISTEN) Biotin has been reported to cause a negative bias, interpret results relative to patient's use of biotin. Lab Interpretation Normal (test code = 26694-8) [facility] THRMPLAS [id number] 18:21:42 Test Item Value Reference Range Interpretation Comments APTT Patient (test See_Comment [Automat ed code = 3173-2) message] The system which generated this result transmitted reference range : 23 - 38 Seconds . The reference range was not used to interpr et this result as normal/abnormal . CHRISTEN (test code = CHRISTEN) The [facility] patient population mean normal value for aPTT is 30 seconds. Lab Interpretation Normal (test code = 37852-3) [facility]view[facility]HR[facility] / [id number] 18:19:42 Test Item Value Reference Range Interpretation [...] tions. Lab Interpretation (test Abnormal code = 67076-7) [facility] METABOLIC PANEL (59237)2021-05-31 18:17:02 Test Item Value Reference Range Interpretation Comments NA (test code = 138 mmol/L 135-145 9392792139) K (test code = 4.0 mmol/L 3.5-5.0 1008748738) CL (test code = 104 mmol/L 98-108 7194270408) CO2 TOTAL (test code 30 mmol/L 23-31 = 3311037471) AGAP (test code = 2-16 9711169610) BUN (test code = 11 mg/dL 7-23 4459592172) GLUCOSE (test code = 98 mg/dL 70-110 7277733640) CREATININE (test code 0.67 mg/dL 0.50-1.04 = 7879899798) TOTAL BILI (test code 0.3 mg/dL 0.1-1.1 = 5126898318) CALCIUM (test code = 9.3 mg/dL 8.6-10.6 4128311711) T PROTEIN (test code 8.0 g/dL 6.3-8.2 = 3710288573) ALBUMIN (test code = 4.3 g/dL 3.5-5.0 5098587391) ALK PHOS (test code = 86 U/L 34-122 9413018335) ALTv (test code = 19 U/L 5-35 1742-6) AST(SGOT) (test code 26 U/L 13-40 = 2946898692) eGFR (test code = mL/min/1.73m2 1691006771) CHRISTEN (test code = CHRISTEN) Association of [...] or urine or abnormalities in imaging tests). [facility]21[facility]-01 18:17:02 Test Item Value Reference Range Interpretation Comments LIPASE (test code = 6108606599) 111 U/L 0-220 Lab Interpretation (test code = Normal 21173-3) [facility]viewPO[facility] [id number] 18:14:00 Test Item Value Reference Range Interpretation Comments POCT PREG (test code = 1605) negative POCT PREG LOT # (test code = 3575) [id number] POCT PREG TEST DATE (test 2022-07-30 code = 3576) Lab Interpretation (test code = Normal 48915-5) [facility] WITH [id number] 18:04:58 Test Item Value Reference Range Interpretation Comments WBC (test code = See_Comment [Automated 6995-2) message] The sy stem which generated this result transmitted reference range : 4.30 - 11.10 10*3/?L. The reference range was not used to interpret this result as normal/abnormal . RBC (test code = See_Comment [Automated 810-4) message] The sy stem which generated this [...] RDW-SD (test code = 45.1 fL 39.0-49.9 05422-1) RDW-CV (test code = 13.7 % 12.0-15.5 788-0) PLT (test code = See_Comment [Automated 777-3) message] The sy stem which generated this result transmitted reference range : 166 - 358 10*3/ ?L. The reference r josiane was not used to interpret this result as normal/abnormal . MPV (test code = 9.9 fL 9.5-12.9 52809-6) NRBC/100 WBC (test See_Comment [Automat ed code = 5960640714) message] The system which generated this result transmitted reference range : 0.0 - 10.0 /100 WBCs. The refer ence range was not u sed to interpret th is result as normal/abnormal . NRBC x10^3 (test code <0.01 See_Comment [Auto mated = 8493769789) message] The s ystem which generated this result transmitted reference range : 10*3/?L. The reference range was not used to interpret this result as normal/abnormal . GRAN MAT (NEUT) % 49.3 % (test code = 770-8) IMM GRAN % (test code 0.20 % = 8081269025) LYMPH % (test code = 40.2 % 736-9) MONO % (test code = 8.5 % 5905-5) EOS % (test code = 1.2 % 713-8) BASO % (test code = 0.6 % 706-2) GRAN MAT x10^3(ANC) 2.51 10*3/uL 1.88-7.09 (test code = 7705010996) IMM GRAN x10^3 (test <0.03 0.00-0.06 code = 1497834100) LYMPH x10^3 (test code 2.04 10*3/uL 1.32-3.29 = 731-0) MONO x10^3 (test code 0.43 10*3/uL 0.33-0.92 = 742-7) EOS x10^3 (test code = 0.06 10*3/uL 0.03-0.39 711-2) BASO x10^3 (test code 0.03 10*3/uL 0.01-0.07 = 704-7) Lab Interpretation Abnormal (test code = 72792-6) [facility] STREP SCREEN FOR GROUP [id number] 17:23:40 Test Item Value Reference Range Interpretation Comments Streptococcus pyogenes (group A) Negative Negative antigen (test code = 64134-7) Lab Interpretation (test code = Normal 47428-6) [facility] STREP SCREEN FOR GROUP [id number] 17:23:40 Test Item Value Reference Range Interpretation Comments Streptococcus pyogenes (group A) Negative Negative antigen (test code = 22298-4) Lab Interpretation (test code = Normal 29244-6) [facility]-19 (ID NOW RAPID TESTING)2021-04-04 17:13:58 Test Item Value Reference Range Interpretation Comments SARS-CoV-2 Rapid ID NOW Not Detected Not Detected (test code = 28246-6) CHRISTEN (test code = CHRISTEN) ID NOW COVID-19 Assay is an isothermal nucleic acid amplification test intended for the qualitative detection of nucleic acid from SARS-CoV-2 viral RNA in nasopharyngeal ([employer]) specimens. It is used under Emergency Use [...] indicated. Lab Interpretation Normal (test code = 81031-2) [facility]-19 (ID NOW RAPID TESTING)2021-04-04 17:13:58 Test Item Value Reference Range Interpretation Comments SARS-CoV-2 Rapid ID NOW Not Detected Not Detected (test code = 57900-8) CHRISTEN (test code = CHRISTEN) ID NOW COVID-19 Assay is an isothermal nucleic acid amplification test intended for the qualitative detection of nucleic acid from SARS-CoV-2 viral RNA in nasopharyngeal ([employer]) specimens. It is used under Emergency Use [...] indicated. Lab Interpretation Normal (test code = 37218-9) [facility]"
--- NOTE | 2023-05-28 13:33 | ER ---
Nurse's Notes [facility] Name: Lennie Peguero Age: 42 yrs Sex: Female : 1980 Arrival Date: 05/28/2023 Time: 12:17 Bed 9 Private MD: Diagnosis: Streptococcal pharyngitis Presentation: 05/28 12:22 Chief complaint: Patient states: "I started having body aches yesterday and woke up mb9 with a sore throat today." Pt denies N/V/D. Coronavirus screen: Vaccine status: Patient reports being unvaccinated. Ebola Screen: No symptoms or risks identified at this time. Initial Sepsis Screen: Does the patient meet any 2 criteria? No. Patient's initial sepsis screen is negative. Does the patient have a suspected source of infection? No. Patient's initial sepsis screen is negative. Risk Assessment: Do you want to hurt yourself or someone else? Patient reports no desire to harm self or others. Onset of symptoms was 2022. 12:22 Method Of Arrival: Ambulatory mb9 12:22 Acuity: [place] 4 mb9 Triage Assessment: 12:25 General: Appears uncomfortable, Behavior is calm, cooperative. Pain: Complains of pain mb9 in entire body Quality of pain is described as aching, Pain began 1 day ago. EENT: Throat is reddened. Neuro: [place] Agitation-Sedation Scale (RASS): 0 - Alert and Calm Level of Consciousness is awake, alert, obeys commands, Oriented to person, place, time, situation, Appropriate for age. Cardiovascular: Patient's skin is warm and dry. Respiratory: Airway is patent Respiratory effort is even, unlabored, Respiratory pattern is regular, symmetrical, Breath sounds are clear bilaterally. GI: Patient currently denies diarrhea, nausea, vomiting. : No signs and/or symptoms were reported regarding the genitourinary system. Derm: Skin is pink, warm \\T\\ dry. Musculoskeletal: Range of motion: intact in all extremities. Historical: - Allergies: 12:23 No Known Allergies; mb9 - Home Meds: 12:23 None [Active]; mb9 - PMHx: 12:23 None; mb9 - PSHx: 12:23 None; mb9 - Immunization history:: Adult Immunizations up to date. - Social history:: Smoking status: Patient reports the use of cigarette tobacco products, smokes one-half pack cigarettes per day. Screenin:59 [facility] ED Fall Risk Assessment (Adult) Score/Fall Risk Level 0 - 2 = Low Risk nj1 Oriented to surroundings, Maintained a safe environment, Hourly rounding (assess needs \\T\\ fall precautionary measures) done. Abuse screen: Denies threats or abuse. Denies injuries from another. Nutritional screening: No deficits noted. Tuberculosis screening: No symptoms or risk factors identified. Assessment: 12:30 Reassessment: Patient appears in no apparent distress at this time. Patient and/or nj1 family updated on plan of care and expected duration. Pain level reassessed. Patient is alert, oriented x 3, equal unlabored respirations, skin warm/dry/pink. Vital Signs: 12:22 BP 146 / 84; Pulse 102; Resp 18; Temp 97.5; Pulse Ox 100% ; Weight 61.23 kg; Height 5 mb9 ft. 3 in. ; Pain 7/10; 12:22 Body Mass Index 23.91 (61.23 kg, 160.02 cm) mb9 12:22 Pain Scale: Adult 9 ED Course: 12:20 Patient arrived in ED. mg5 12:21 Wilbert Fay MD is Attending Physician. ec2 12:22 Latrice Tovar, JEANNIE is Primary Nurse. nj1 12:23 Triage completed. mb9 12:23 Arm band placed on. mb9 12:59 Patient has correct armband on for positive identification. Bed in low position. Call nj1 light in reach. Adult w/ patient. Provided Education on: call light, fall precautions. 13:54 No provider procedures requiring assistance completed. Patient did not have IV access mb9 during this emergency room visit. Administered Medications: No medications were administered Medication: 13:00 VIS not applicable for this client. nj1 Outcome: 13:32 Discharge ordered by . ec2 13:54 Discharged to home ambulatory, mb9 13:54 Condition: stable 13:54 Discharge instructions given to patient, Instructed on discharge instructions, follow up and referral plans. Demonstrated understanding of instructions, follow-up care, medications, Prescriptions given X 1, 13:54 Patient left the ED. mb9 Signatures: Taylor Zavala RN RN mb9 Latrice Tovar RN RN nj1 Tawny Dubon mg5 Wilbert Fay MD MD ec2 Corrections: (The following items were deleted from the chart) 12:23 12:22 Chief complaint: Patient states: "I started having body aches yesterday and woke mb9 up with a sore throat today" mb9
--- NOTE | 2023-05-28 13:33 | EDPHYS ---
Physician Documentation [facility] Name: Lennie Peguero Age: 42 yrs Sex: Female : 1980 Arrival Date: 05/28/2023 Time: 12:17 Bed 9 Private MD: ED Physician Wilbert Fay HPI: 05/28 12:28 This 42 yrs old Female presents to ER via Ambulatory with complaints of Body ec2 Aches, Sore Throat - Swelling. 12:28 Patient arrives today due to concern for myalgias as well as sore throat as well as ec2 swollen lymph nodes. Patient reports symptoms been ongoing for yesterday, complaining of body pains. Reports no nausea, reports decreased p.o. intake due to throat pain. Denies any vomiting, denies diarrhea. Reports no cough or cold symptoms. Patient does have small children.. Historical: - Allergies: 12:23 No Known Allergies; mb9 - Home Meds: 12:23 None [Active]; mb9 - PMHx: 12:23 None; mb9 - PSHx: 12:23 None; mb9 - Immunization history:: Adult Immunizations up to date. - Social history:: Smoking status: Patient reports the use of cigarette tobacco products, smokes one-half pack cigarettes per day. ROS: 12:28 Constitutional: as per hpi ec2 Exam: 12:28 Constitutional: GEN: NAD Head: atraumatic Eyes: EOMI Ears: External ears are ec2 normal. Oropharynx: Posterior pharyngeal erythema without exudate appreciated. No evidence of abscess. Neck: Anterior neck with cervical lymphadenopathy noted. CV: regular rate LUNGS: no respiratory distress ABD: non-distended SKIN: no evidence of rashes MSK: no evidence of trauma NEURO: moves all extremities equally Vital Signs: 12:22 BP 146 / 84; Pulse 102; Resp 18; Temp 97.5; Pulse Ox 100% ; Weight 61.23 kg; Height 5 mb9 ft. 3 in. ; Pain 7/10; 12:22 Body Mass Index 23.91 (61.23 kg, 160.02 cm) mb9 12:22 Pain Scale: Adult mb9 MDM: 12:21 Patient medically screened. ec2 12:29 ED course: Patient arrives today due to concern for sore throat. Examination remarkable ec2 for well-appearing nontoxic dividual is otherwise in no acute distress who has cervical anterior lymphadenopathy as well as posterior pharyngeal erythema. Will obtain a strep swab. Ultimately considering strep, viral process, suspicion for pneumonia. Will defer lab work at this time . 13:32 Data reviewed: vital signs. ED course: Patient is strep a positive. Will discharge home ec2 with prescription for antibiotics. Return precautions given. . 05/28 12:28 Order name: Strep; Complete Time: 13:31 ec2 Administered Medications: No medications were administered Disposition Summary: 05/28/23 13:32 Discharge Ordered Notes: Location: Home ec2 Condition: Stable ec2 Diagnosis - Streptococcal pharyngitis ec2 Discharge Instructions: - Discharge Summary Sheet ec2 - Strep Throat, Adult, [id number] ec2 Forms: - Medication Reconciliation Form ec2 - Thank You Letter ec2 - Antibiotic Education ec2 - Prescription Opioid Use ec2 - Patient Portal Instructions ec2 - Leadership Thank You Letter ec2 Prescriptions: - Amoxicillin 500 mg Oral capsule - take 1 capsule ORAL route every 12 hours for 10 days; 20 tablet; Refills: 0, ec2 Product Selection Permitted Signatures: Dispatcher [employer] Taylor Corrales RN RN mb9 Wilbert Fay MD MD ec2
[2023-05-28 14:01] VITALS: BP 146/84; TEMP 97.5; O2SAT 100
== END 2023-05-28 13:54 | disposition home or self-care (01) ==
LOC: ER 12:17
DX: J02.0 Streptococcal pharyngitis (principal); F17.210 Nicotine dependence, cigarettes, uncomplicated
CPT/HCPCS: 87081; 99283

== ENCOUNTER 2024-01-25 21:08 | Emergency (ER) | payer OTHER ==
--- OUTSIDE RECORDS SUMMARY | 2024-01-25 21:11 | XMS REPORT | Continuity of Care Document ---
Author Name Unknown Address [address] [facility] [address] [place] [address] [facility] thconnect Address [address] [facility] [address] [place] [address] Care Team Providers Care [employer] Name Role Phone PCP, PATIENT DOES NOT HAVE A Primary Care Physic marion Unavailable KAMERON TA Attending Clinician Unavailable Kameron Ta MD Attending Clinician [phone] Tonya Patiño CMA Attending Clinician TONYA PATIÑO Attending Clinician Unavailable Vicenta Bolden DO Attending Clinician [phone] VICENTA BOLDEN Attending Clinician Unavailab KAMERON Chacon Admitting Clinician Unavailable Payers Payer Name Policy Type Policy Number Effective Date Expirati on Date Source [employer] [place] [employer] 7 [id number] 2021 00:00:00 [employer] [place] [id number] 2020 00:00:00 MEDICAID PENDING PENDING 2020 00:00:00 Problems Condition Name Condition Details Condition Category Status Onset Date Resolution Date Last Treatment Date Treating Clinician Comments Source No known active problems No known active problems Disease [facility] Allergies, Adverse Reactions, Alerts Allergy Name Allergy Type Status Severity Reaction(s) Onset Date Inactive Date Treating Clinician Comments Source NO KNOWN ALLERGIE S Drug Class Active [facility] Social History Social Habit Start Date Stop Date Quantity Comments Source Exposure to SARS-CoV-2 (event) Not sure [facility] Sex Assigned At 1980 00:00:00 1980 00[birth year]00:00 [facility] Smoking Status Start Date Stop Date Source Unknown if ever smoked [facility] Medications Ordered Medication Name Filled Medication Name Start Date Stop Date Current Medication? Ordering Clinician Indication Dosage Frequency Signature (SIG) Comments Components Source morpHINE injection 4 mg 2020-07 21:00: 00 05-31 20:00 :00 No 4mg 4 mg, Slow IV Push, ONCE, 1 dose, On Mon05/31/21 at 1600, STAT [facility] ketorolac (TORADOL) injection 30 mg 2020-07 20:45: 00 05-31 20:00 :00 No 30mg 30 mg, Slow IV Push, ONCE, 1 dose, On Mon05/31/21 at 1545, VIRIDIANA
Fa culty member approving Restricted medication : KAMERON TA [facility] iopamidol (ISOVUE 370-500 mL) injection 120 mL 2020-07 18:42: 00 05-31 18:43 :00 No [id number] 120mL 120 mL, Intravenou s, ONCE, 1 dose, On Mon05/31/21 at 1400, Routine [facility] methylPREDN ISolone 4 mg tablets 2020-07 00:00: 00 Yes [id number] Take by mouth SEE-INSTRU CTIONS. follow package directions [facility] diazePAM (VALIUM) 5 mg tablet 2020-07 00:00: 00 Yes [id number] 5mg Take 1 tablet by mouth 3 (three) times daily as needed for Muscle Spasms. [facility] traMADoL 50 mg tablet 04-04 00:00: 00 Yes [id number] 50mg Take 1 tablet by mouth every 6 (six) hours as needed for Pain (scale 4-6). Indication s: acute pain [facility] ibuprofen 600 mg tablet 04-04 00:00: 00 Yes [id number] 600mg Take 1 tablet by mouth every 6 (six) hours as needed for Pain (scale 4-6). [facility] amoxicillin 500 mg capsule 04-04 00:00: 00 Yes [id number] 500mg Take 1 capsule by mouth 3 (three) times daily. [facility] ibuprofen (MOTRIN) 400 mg tablet 03-22 00:00: 00 Yes 400mg Take 1 tablet by mouth every 6 (six) hours as needed for Pain (scale 1-3). [facility] famotidine (PEPCID) 20 mg tablet 03-22 00:00: 00 Yes 20mg Take 1 tablet by mouth at bedtime. [facility] Vital Signs Vital Name Observation Time Observation Value Comments S talia Systolic blood pressure 2021-05-31 20:05:00 125 mm[Hg] [facility] Diastolic blood pressure 2021-05-31 20:05:00 91 mm[Hg] [facility] Heart rate 2021-05-31 20:05:00 71 /min [facility] Respiratory rate 2021-05-31 20:05:00 18 /min [facility] Oxygen saturation in Arterial blood by Pulse oximetry 2021-05-31 20:05:00 100 /min [facility] Body temperature 2021-05-31 18:08:45 36.44 [facility] Systolic blood pressure 2021-04-04 16:45:00 133 mm[Hg] [facility] Diastolic blood pressure 2021-04-04 16:45:00 88 mm[Hg] [facility] Heart rate 2021-04-04 16:45:00 84 /min [facility] Body temperature 2021-04-04 16:45:00 37 [facility] Respiratory rate 2021-04-04 16:45:00 18 /min [facility] Body weight 2021-04-04 16:45:00 70.308 kg [facility] BMI 2021-04-04 16:45:00 30.27 kg/m2 [facility] Oxygen saturation in Arterial blood by Pulse oximetry 2021-04-04 16:45:00 100 /min [facility] Oxygen saturation in Arterial blood by Pulse oximetry 2020-12-29 15:53:00 100 /min [facility] Systolic blood pressure 2020-12-29 15:53:00 130 mm[Hg] [place] [facility] Diastolic blood pressure 2020-12-29 15:53:00 82 mm[Hg] [facility] Heart rate 2020-12-29 15:53:00 93 /min [facility] Body temperature 2020-12-29 15:53:00 36.72 [facility] Respiratory rate 2020-12-29 15:53:00 18 /min [facility] Body height 2020-12-29 15:53:00 152.4 cm [facility] Body weight 2020-12-29 15:53:00 75.751 kg [facility] BMI 2020-12-29 15:53:00 32.61 kg/m2 [facility] Procedures Procedure Date / Time Performed Performing Clinician Source CT ABDOMEN PELVIS W CONTRAST 2021-05-31 18:50:14 Kameron Ta [facility] POCT TEST 2021-05-31 18:14:00 Wanda Ta [facility] URINALYSIS 2021-05-31 18:13:00 Kameron Ta [facility] LIPASE 2021-05-31 17:49:00 Kameron Ta [facility] TROPONIN I 2021-05-31 17:49:00 Kameron Ta [facility] COMP. METABOLIC PANEL ([id number]) 2021-05-31 17:49:00 Kameron Ta [facility] CBC WITH DIFF 2021-05-31 17:49:00 Kameron Ta [facility] PROTHROMBIN TIME / INR 2021-05-31 17:49:00 Trino Ta [facility] ACTIVATED PARTIAL THRMPLAS BRIDGETTE 2021-05-31 17:49:00 Kameron Ta [facility] N-TERMINAL PRO-BNP 2021-05-31 17:49:00 Kameron Ta [facility] ASSIGNMENT OF BENEFITS 2021-05-31 17:37:13 Docto r Unassigned, [facility] XR CHEST 1 VW 2021-05-31 15:57:40 Kameron Ta [facility] XR SPINE THORACIC 2 VW 2021-05-31 15:57:40 Trino Ta [facility] CONSENT/REFUSAL FOR DIAGNOSIS AND TREATMENT 2021-05-31 15:01:39 Doctor Unassigned, [facility] RAPID STREP SCREEN FOR GROUP A 2021-04-04 16:46:00 Kameron Ta [facility] COVID-19 (ID NOW RAPID TESTING) 2021-04-04 16:46:00 Kameron Ta [facility] CONSENT/REFUSAL FOR DIAGNOSIS AND TREATMENT 2021-04-04 16:41:31 Doctor Unassigned, [facility] NOTICE OF PRIVACY PRACTICES 2020-12-29 15:49:02 Doctor Unassigned, [facility] CONSENT/REFUSAL FOR DIAGNOSIS AND TREATMENT 2020-12-29 15:48:43 Doctor Unassigned, [facility] Encounters Start Date/Time End Date/Time Encounter Type Admission Type Attending [facility] Care Facility Care Department Encounter ID Source 2021-08-11 13:56:21 Outpatient HHD HHD [id number] - [id number] [facility] 2024-01-16 11:40:43 2024-01-16 11:40:43 Outpatient [facility] [id number] Roberto Carlos Navid Coppola 2023-12-14 15:27:26 2023-12-14 15:27:26 Outpatient [facility] [id number] Roberto Carlos Coppola 2021-05-31 10:19:00 2021-05-31 15:14:00 Emergency X KAMERON TA [facility] ERT [id number] [facility] 2021-05-31 10:19:00 2021-05-31 15:14:00 Emergency Kameron Ta [facility] [id number] [facility] 2021-05-20 09:51:24 2021-05-20 12:39:13 Office Visit Tonya Patiño 1..[id number] 2021-05-20 07:51:24 2021-05-20 10:39:13 Outpatient TONYA PATIÑO HHD HHD [id number] [facility] ent 2021-04-04 11:47:00 2021-04-04 13:08:00 Emergency Kameron Ta [facility] [id number] [facility] 2021-04-04 11:47:00 2021-04-04 11:47:00 Emergency X TA KAMERON [facility] ERT [id number] [facility] 2020-12-29 10:54:00 2020-12-29 11:20:00 Emergency Vicenta Bolden [facility] [id number] [facility] 2020-12-29 10:48:00 2020-12-29 10:48:00 Emergency X VICENTA BOLDEN [facility] ERT [id number] [facility] Results Test Description Test Time Test Comments Results Result Co mments Source CBC W/AUTO DIFF WITH [id number] 07:10:52* Test Item Value Reference Range Interpretation Comme nts WBC (test code = 1001) 6.5 K/UL 3.5-11.0 RBC (test code = 1002) 4.37 M/UL 3.80-5.40 HEMOGLOBIN (test code = 1003) 12.6 G/DL 11.5-15.5 HEMATOCRIT (test code = 1004) 39.9 % 34.0-45.0 MCV (test code = 1005) 91.3 fL 80.0-99.0 MCH (test code = 1006) 28.8 PG 25.0-33.0 MCHC (test code = 1007) 31.6 G/DL 31.0-36.0 RDW (test code = 1038) 13.3 % 11.5-15.0 NEUTROPHILS (test code = 1008) 45.8 % LYMPHOCYTES (test code = 1010) 37.0 % MONOCYTES (test code = 1011) 10.5 % EOSINOPHILS (test code = 1012) 5.7 % BASOPHILS (test code = 1013) 0.8 % IMMATURE GRANULOCYTES (test code = 1036) 0.2 % NUCLEATED RBCS (test code = 1065) 0.0 /100 WBC'S See_Comment [Automated messa ge] The system which generated this result transmitted reference range: 0.0. The reference range was not used to interpret this result as normal/abnormal. PLATELET COUNT (test code = 1015) 274 K/UL 130-400 ABSOLUTE NEUTROPHILS (test code = 1066) 2.96 K/UL 1.50-7.50 ABSOLUTE LYMPHOCYTES (test code = 1067) 2.39 K/UL 1.00-4.00 ABSOLUTE MONOCYTES (test code = 1068) 0.68 K/UL 0.20-1.00 ABSOLUTE EOSINOPHILS (test code = 1040) 0.37 K/UL 0.00-0.50 ABSOLUTE BASOPHILS (test code = 1069) 0.05 K/UL 0.00-0.20 ABS IMMATURE GRANULOCYTES (test code = 1020) 0.01 K/UL 0.00-0.10 ABS NUCLEATED RBCS (test code = 89576) 0.00 K/UL 0.00-0.11 [id number] 06:16:52* Test Item Value Reference Range Interpretation Comme nts RPR RESULT (test code = 3501) NON-REACTIVE NON-REACTIVE RPR TITER (test code = 3500) NOT INDIC. TITER NOT INDIC. HEPATITIS PANEL, [id number] 06:00:10* Test Item Value Reference Range Interpretation Comme nts HEPATITIS A IgM (test code = 72081) NON-REACTIVE NON-REACTIVE HEPATITIS B CORE IgM (test code = 4644) NON-REACTIVE NON-REACTIVE HEPATITIS B SURF AG (test code = 2739) NON-REACTIVE NON-REACTIVE HEPATITIS C ANTIBODY (test code = 4675) NON-REACTIVE NON-REACTIVE INTERPRETATION HEPATITIS A: (test code = 2552) (NOTE) Hepatitis A serology shows no evidence of acute hepatitis A. INTERPRETATION HEPATITIS B: (test code = 54526) (NOTE) Hepatitis B serology shows no evidence of acute hepatitis B andno indication of exposure to hepatitis B virus in the previous june eight months. INTERPRETATION HEPATITIS C: (test code = 34156) (NOTE) Hepatitis C serology shows no evidence of exposure to hepatitisC virus at this time. It can take up to 12 months after exposure tothe hepatitis C virus for antibodies to become detectable in the blood in certain patients. VITAMIN B 12 AND FOLIC [id number] 05:58:15* Test Item Value Reference Range Interpretation Comme nts VITAMIN B-12 (test code = 2840) 469 PG/ML 200-950 FOLIC ACID (test code = 2695) 7.2 UG/L SEE BELOW INTERPRETI VE RANGES DEFICIENCY . . . . . . . . . . . . . . . UG/L <4.0 POSSIBLE DEFICIENCY. . . . . . . . . . . UG/L 4.0-5.9 SUFFICIENT . . . . . . . . . . . . . . . UG/L >=6.0 TROPONIN [id number] 18:35:03* Test Item Value Reference Range Interpretation Comments TROPONIN I (test code = 8704477977) <0.012 See_Comment [Automated message] The system which generated this result transmitted reference range: <=0.034 ng/mL. The reference range was not used to interpret this result as normal/abnormal. CHRISTEN (test code = CHRISTEN) Reference (Normal) [...] to patient's use of biotin. Lab Interpretation (test code = 27523-6) [id number] 18:31:41* Test Item Value Reference Range Interpretation Comme nts NT-proBNP (test code = 1709218079) 53 pg/mL See_Comment [Automated message] The system which generated this result transmitted reference range: <=125. The reference range was not used to interpret this result as normal/abnormal. CHRISTEN (test code = CHRISTEN) Biotin has been reported to cause a negative bias, interpret results relative to patient's use of biotin. Lab Interpretation (test code = 00267-5) Normal [facility] THRM[facility] [id number] 18:21:42* Test Item Value Reference Range Interpretation Comme [facility] APTT Patient (test code = 3173-2) See_Comment [Automated message] The system which generated this result transmitted reference range: 23 - 38 Seconds. The reference range was not used to interpret this result as normal/abnormal. CHRISTEN (test code = CHRISTEN) The [facility] patient population mean normal value for aPTT is 30 seconds. Lab Interpretation (test code = 45121-6) [facility] / [id number] 18:19:42* Test Item Value Reference Range Interpretation Comme [facility] PROTIME PATIENT (test code = 5964-2) See_Comment L [Automated messa ge] The system which generated this result transmitted reference range: 12.0 - 14.7 Seconds. The reference range was not used to interpret this result as normal/abnormal. INR (test code = 6301-6) Normal INR <1.1; Warfarin Therapeutic range 2.0 to 3.0 or 2.5 to 3.5, depending upon the indications. Lab Interpretation (test code = 55796-5) [facility] (16095)2021-05-31 18:17:02* Test Item Value Reference Range Interpretation Comme [facility] NA (test code = 9361713052) 138 mmol/L 135-145 K (test code = 2454425931) 4.0 mmol/L 3.5-5.0 CL (test code = 5444443622) 104 mmol/L 98-108 CO2 TOTAL (test code = 4907788101) 30 mmol/L 23-31 AGAP (test code = 5750075266) 2-16 BUN (test code = 5045101312) 11 mg/dL 7-23 GLUCOSE (test code = 6221815162) 98 mg/dL 70-110 CREATININE (test code = 5936927318) 0.67 mg/dL 0.50-1.04 TOTAL BILI (test code = 5207930535) 0.3 mg/dL 0.1-1.1 CALCIUM (test code = 5350615495) 9.3 mg/dL 8.6-10.6 T PROTEIN (test code = 3065773670) 8.0 g/dL 6.3-8.2 ALBUMIN (test code = 8975715166) 4.3 g/dL 3.5-5.0 ALK PHOS (test code = 8091291873) 86 U/L 34-122 ALTv (test code = 1742-6) 19 U/L 5-35 AST(SGOT) (test code = 9221891072) 26 U/L 13-40 eGFR (test code = 2096532421) mL/min/1.73m2 CHRISTEN (test code = CHRISTEN) Association of [...] or urine or abnormalities in imaging tests). [facility] 18:17:02* Test Item Value Reference Range Interpretation Comme nts LIPASE (test code = 2902427184) 111 U/L 0-220 Lab Interpretation (test cod e = 89171-7) Normal [facility] CenterPO[facility] [id number] 18:14:00* Test Item Value Reference Range Interpretation Comme nts POCT PREG (test code = 1605) negative POCT PREG LOT # (test code = 3575) [id number] POCT PREG TEST DATE ( test code = 3576) 2022-07-30 Lab Interpretation (test cod e = 13024-2) [facility] CenterCB WITH [id number] 18:04:58* Test Item Value Reference Range Interpretation Comme nts WBC (test code = 6690-2) See_Comment [Automated messa ge] The system which generated this result transmitted reference range: 4.30 - 11.10 10*3/?L. The reference range was not used to interpret this result as normal/abnormal. RBC (test code = 789-8) See_Comment [Automated messa ge] The system which generated this result transmitted reference range: 3.93 - 5.25 10*6/?L. The reference range was not used to interpret this result as normal/abnormal. HGB (test code = 718-7) 11.5 g/dL 11.6-15.0 L HCT (test code = 4544-3) 37.2 % 35.7-45.2 MCV (test code = 787-2) 89.9 fL 80.6-95.5 MCH (test code = 785-6) 27.8 pg 25.9-32.8 MCHC (test code = 786-4) 30.9 g/dL 31.6-35.1 L RDW-SD (test code = 53742-3) 45.1 fL 39.0-49.9 RDW-CV (test code = 788-0) 13.7 % 12.0-15.5 PLT (test code = 777-3) See_Comment [Automated messa ge] The system which generated this result transmitted reference range: 166 - 358 10*3/?L. The reference range was not used to interpret this result as normal/abnormal. MPV (test code = 98018-9) 9.9 fL 9.5-12.9 NRBC/100 WBC (test code = 4984281758) See_Comment [Automated me ssage] The system which generated this result transmitted reference range: 0.0 - 10.0 /100 WBCs. The reference range was not used to interpret this result as normal/abnormal. NRBC x10^3 (test code = 3745523823) <0.01 See_Comment [Automated messa ge] The system which generated this result transmitted reference range: 10*3/?L. The reference range was not used to interpret this result as normal/abnormal. GRAN MAT (NEUT) % (test code = 770-8) 49.3 % IMM GRAN % (test code = 2606758628) 0.20 % LYMPH % (test code = 736-9) 40.2 % MONO % (test code = 5905-5) 8.5 % EOS % (test code = 713-8) 1.2 % BASO % (test code = 706-2) 0.6 % GRAN MAT x10^3(ANC) (test code = 1407937130) 2.51 10*3/uL 1.88-7.09 IMM GRAN x10^3 (test code = 1913124399) <0.03 0.00-0.06 LYMPH x10^3 (test code = 731-0) 2.04 10*3/uL 1.32-3.29 MONO x10^3 (test code = 742-7) 0.43 10*3/uL 0.33-0.92 EOS x10^3 (test code = 711-2) 0.06 10*3/uL 0.03-0.39 BASO x10^3 (test code = 704-7) 0.03 10*3/uL 0.01-0.07 Lab Interpretation (test code = 86431-4) Abnormal [facility] STREP SCREEN FOR GROUP [id number] 17:23:40* Test Item Value Reference Range Interpretation Comme nts Streptococcus pyogenes (grou p A) antigen (test code = 48342-8) Negative Negative Lab Interpretation (test cod e = 08008-4) Normal [facility] STREP SCREEN FOR GROUP [id number] 17:23:40* Test Item Value Reference Range Interpretation Comme nts Streptococcus pyogenes (grou p A) antigen (test code = 68481-3) Negative Negative Lab Interpretation (test cod e = 59568-7) [place] [address] (ID NOW RAPID TESTING)2021-04-04 17:13:58* Test Item Value Reference Range Interpretation Comme nts SARS-CoV-2 Rapid ID NOW (test code = 09552-3) Not Detected Not Detected CHRISTEN (test code = CHRISTEN) ID NOW COVID-19 As say is an isothermal nucleic acid amplification test intended for the qualitative detection of nucleic acid from SARS-CoV-2 viral RNA in nasopharyngeal ([employer]) specimens. It is used under Emergency Use [...] patient testing if clinically indicated. Lab Interpretation (test code = 63445-4) [place] [address] (ID NOW RAPID TESTING)2021-04-04 17:13:58* Test Item Value Reference Range Interpretation Comme nts SARS-CoV-2 Rapid ID NOW (test code = 63199-8) Not Detected Not Detected CHRISTEN (test code = CHRISTEN) ID NOW COVID-19 As say is an isothermal nucleic acid amplification test intended for the qualitative detection of nucleic acid from SARS-CoV-2 viral RNA in nasopharyngeal ([employer]) specimens. It is used under Emergency Use [...] patient testing if clinically indicated. Lab Interpretation (test code = 28361-8) Normal [facility]"
[2024-01-25] MEDS ORDERED: predniSONE 20 MG TAB ONE (21:28)
[2024-01-25] MEDS ORDERED: KETOROLAC 30 MG/ML INJ ONE (21:28)
--- NOTE | 2024-01-25 21:37 | EDPHYS ---
Physician Documentation [facility] Name: Lennie Peguero Age: 43 yrs Sex: Female : 1980 Arrival Date: 01/25/2024 Time: 21:08 Bed 6 Private MD: NICHO Physician Gonzalo Kessler HPI: 01/24 23:11 This 43 yrs old Female presents to ER via Ambulatory with complaints of Hand kb Pain. 23:11 Pt is a 43 year old female who presents for pain in right wrist that radiates into hand kb with intermittent numbness and tingling. States symptoms started a few weeks ago and have not gotten any better. States she has tried a wrist splint, but it hasn't helped. Historical: - Allergies: 21:12 No Known Allergies; cm10 - PMHx: 21:12 None; cm10 - Immunization history:: Adult Immunizations up to date. - Infectious Disease History:: Denies. - Social history:: Smoking status: Patient reports the use of cigarette tobacco products, denies chronic smoking, but will smoke occasionally. ROS: 23:09 Constitutional: As per HPI kb Exam: 23:09 Constitutional: This is a well developed, well nourished patient who is awake, alert, kb and in no acute distress. Head/Face: Normocephalic, atraumatic. ENT: Moist Mucous membranes Cardiovascular: Regular rate Respiratory: Respirations even and unlabored. No increased work of breathing. Talking in full sentences Abdomen/GI: Soft, non-tender. No distention Skin: Warm, dry with normal turgor. Normal color. MS/ Extremity: Pulses equal, no cyanosis. Neurovascular intact. Full, normal range of motion. Neuro: Awake and alert, GCS 15, oriented to person, place, time, and situation. Moves all extremities. Normal gait. Vital Signs: 21:11 BP 146 / 82; Pulse 105; Resp 18; Temp 98.2; Pulse Ox 97% ; Weight 75.3 kg; Height 5 ft. cm10 0 in. ; Pain 10/10; 21:11 Body Mass Index 32.42 (75.30 kg, 152.4 cm) cm10 21:11 Pain Scale: Adult cm10 MDM: 21:11 Patient medically screened. kb 23:10 Differential diagnosis: tendonitis, arthritis, carpal tunnel syndrome, sprain, strain. kb Data reviewed: vital signs, nurses notes. Test considered but Not performed: X-ray: x-ray considered but pt has no bony tenderness, no injury or trauma. Counseling: I had a detailed discussion with the patient and/or guardian regarding the historical points, exam findings, and any diagnostic results supporting the discharge/admit diagnosis, the need for outpatient follow up, a orthopedic surgeon, to return to the emergency department if symptoms worsen or persist or if there are any questions or concerns that arise at home. Administered Medications: 21:37 Drug: Ketorolac IM 30 mg IM once Route: IM; Site: right gluteus; kd3 21:44 Follow up: Response: No adverse reaction kd3 21:37 Drug: predniSONE PO 40 mg PO once Route: PO; kd3 21:44 Follow up: Response: No adverse reaction kd3 Disposition Summary: 01/25/24 21:36 Discharge Ordered Notes: Location: Home kb Condition: Stable kb Diagnosis - Pain in right hand kb Followup: kb - With: Emergency Department - When: As needed - Reason: Worsening of condition Followup: kb - With: Private Physician - When: 2 - 3 days - Reason: Recheck today's complaints, Continuance of care, Re-evaluation by your physician Discharge Instructions: - Discharge Summary Sheet kb - Carpal Tunnel Syndrome, [id number] kb Forms: - Medication Reconciliation Form kb - Antibiotic Education kb - Prescription Opioid Use kb - Patient Portal Instructions kb - Leadership Thank You Letter kb Prescriptions: - Prednisone 20 mg Oral Tablet - take 1 tablet ORAL route once daily for 5 days; 5 tablet; Refills: 0, Product kb Selection Permitted - Diclofenac Sodium 75 mg Oral tablet, delayed release (enteric coated) - take 1 tablet ORAL route 2 times per day As needed; 30 tablet; Refills: 0, kb Product Selection Permitted Addendum: 02/03/2024 08:02 Co-signature as Attending Physician, Gonzalo Kessler MD I agree with the assessment and c stewart plan of care. Signatures: Libby Reddy, SURVEY ANALYST-C SURVEY ANALYST-Gonzalo Craig MD MD cha Doucette, Kyli, RN RN kd3 Xochitl Cardona RN RN cm10
--- NOTE | 2024-01-25 21:37 | ER ---
Nurse's Notes [facility] Name: Lennie Peguero Age: 43 yrs Sex: Female : 1980 Arrival Date: 01/25/2024 Time: 21:08 Bed 6 Private MD: Diagnosis: Pain in right hand Presentation: 01/24 21:11 Chief complaint: Patient states: Right hand pain onset 1 week ago. Coronavirus screen: cm10 Client denies travel out of the [place] in the last 14 days. At this time, the client does not indicate any symptoms associated with coronavirus-19. Ebola Screen: Patient denies travel to an Ebola-affected area in the 21 days before illness onset. No symptoms or risks identified at this time. Initial Sepsis Screen: Does the patient meet any 2 criteria? HR > 90 bpm. Does the patient have a suspected source of infection? No. Patient's initial sepsis screen is negative. Risk Assessment: Do you want to hurt yourself or someone else? Patient reports no desire to harm self or others. Onset of symptoms was January 25, 2024. 21:11 Method Of Arrival: Ambulatory cm10 21:11 Acuity: [place] 4 cm10 21:16 Care prior to arrival: IV initiated. 20 GA, in the right forearm. vc1 Triage Assessment: 21:13 General: Appears in no apparent distress. comfortable, Behavior is calm, cooperative. cm10 Pain: Complains of pain in right hand Pain does not radiate. Pain currently is 10 out of 10 on a pain scale. Neuro: No deficits noted. Level of Consciousness is awake, alert, obeys commands, Oriented to person, place, time, situation. Respiratory: No deficits noted. Airway is patent Respiratory effort is even, unlabored, Respiratory pattern is regular, symmetrical. Historical: - Allergies: 21:12 No Known Allergies; cm10 - PMHx: 21:12 None; cm10 - Immunization history:: Adult Immunizations up to date. - Infectious Disease History:: Denies. - Social history:: Smoking status: Patient reports the use of cigarette tobacco products, denies chronic smoking, but will smoke occasionally. Screenin:43 [facility] ED Fall Risk Assessment (Adult) History of falling in the last 3 months, kd3 including since admission No falls in past 3 months (0 pts) Confusion or Disorientation No (0 pts) Intoxicated or Sedated No (0 pts) Impaired Gait No (0 pts) Mobility Assist Device Used No (0 pt) Altered Elimination No (0 pt) Score/Fall Risk Level 0 - 2 = Low Risk Oriented to surroundings. Abuse screen: Denies threats or abuse. Denies injuries from another. Nutritional screening: No deficits noted. Tuberculosis screening: No symptoms or risk factors identified. Assessment: 21:43 General: Appears in no apparent distress. Behavior is calm, cooperative. Pain: kd3 Complains of pain in right hand. Neuro: Level of Consciousness is awake, alert, obeys commands. Cardiovascular: Patient's skin is warm and dry. Respiratory: Airway is patent Trachea midline Respiratory effort is even, unlabored, Respiratory pattern is regular, symmetrical. Vital Signs: 21:11 BP 146 / 82; Pulse 105; Resp 18; Temp 98.2; Pulse Ox 97% ; Weight 75.3 kg; Height 5 ft. cm10 0 in. ; Pain 10/10; 21:11 Body Mass Index 32.42 (75.30 kg, 152.4 cm) cm10 21:11 Pain Scale: Adult cm10 ED Course: 21:09 Patient arrived in ED. mr 21:11 Libby Reddy, [facility]. kb 21:11 Gonzalo Kessler MD is Attending Physician. kb 21:12 Triage completed. cm10 21:13 Arm band placed on Patient placed in an exam room, on a stretcher. cm10 21:36 Georgia Neely, RN is Primary Nurse. kd3 21:43 Patient has correct armband on for positive identification. Provided Education on: kd3 medication . 21:44 No provider procedures requiring assistance completed. Patient did not have IV access kd3 during this emergency room visit. Administered Medications: 21:37 Drug: Ketorolac IM 30 mg IM once Route: IM; Site: right gluteus; kd3 21:44 Follow up: Response: No adverse reaction kd3 21:37 Drug: predniSONE PO 40 mg PO once Route: PO; kd3 21:44 Follow up: Response: No adverse reaction kd3 Medication: 21:43 VIS not applicable for this client. kd3 Outcome: 21:36 Discharge ordered by . kb 21:44 Discharged to home ambulatory, kd3 21:44 Condition: stable 21:44 Discharge instructions given to patient, Instructed on discharge instructions, follow up and referral plans. medication usage, Demonstrated understanding of instructions, follow-up care, medications, Prescriptions given X 2, 21:45 Patient left the ED. kd3 Signatures: Libby Reddy, [employer]ILLERY REPAIRER-C SMALL [employer] ARTILLERY REPAIRER-Taylor Lobo, Reg Reg mr FlorindaGeorgia, RN RN kd3 Alma Lomas RN RN vc1 Xochitl Cardona RN RN cm10
[2024-01-25 21:54] VITALS: BP 146/82; TEMP 98.2; O2SAT 97
== END 2024-01-25 21:45 | disposition home or self-care (01) ==
LOC: ER 21:08
DX: M79.641 Pain in right hand (principal); F17.210 Nicotine dependence, cigarettes, uncomplicated
CPT/HCPCS: 96372; 99284; J7512

== ENCOUNTER 2024-10-06 16:05 | Emergency (ER) | payer OTHER, SELFPAY ==
--- OUTSIDE RECORDS SUMMARY | 2024-10-06 16:09 | XMS REPORT | Continuity of Care Document ---
Author Name Unknown Address [address] [facility] [address] [place] [address] [facility] [place] Address [address] [address] [facility] [address] [place] [address] Care Team Providers Care Mental Health Therapist Name Role Phone Pcp, Patient Does Not Have A Primary Care Physic marion CARLOS ALBERTO MCKEON Attending Clinician Unavailable CARLOS ALBERTO MCKEON Attending Clinician Unavailable Carlos Alberto Mckeon PA-C Attending Clinician [phone] KAMERON TA Attending Clinician Unavailable Kameron Ta MD Attending Clinician [phone] Tonya Patiño CMA Attending Clinician [phone] TONYA PATIÑO Attending Clinician Unavailable Vicenta Bolden DO Attending Clinician [phone] VICENTA BOLDEN Attending Clinician Unavailab KAMERON Chacon Admitting Clinician Unavailable Payers Payer Name Policy Type Policy Number Effective Date Expirati on Date Source [employer] [place] [employer] 7 [id number] 2021 00:00:00 [facility] [id number] 2024 00:00:00 [place] [id number] 00:00:00 MEDICAID PENDING PENDING 2020 00:00:00 Problems Condition Name Condition Details Condition Category Status Onset Date Resolution Date Last Treatment Date Treating Clinician Comments Source No known active problems No known active problems Disease [facility] Allergies, Adverse Reactions, Alerts Allergy Name Allergy Type Status Severity Reaction(s) Onset Date Inactive Date Treating Clinician Comments Source NO KNOWN ALLERGIE S Drug Class Active [facility] Social History Social Habit Start Date Stop Date Quantity Comments Source [facility] to SARS-CoV-2 (event) Not sure [facility] Sex assigned at 1980 00:00:00 1980 00:00:00 [facility] Smoking Status Start Date Stop Date Source Tobacco smoking consumption unknown [facility] Medications Ordered Medication Name Filled Medication Name Start Date Stop Date Current Medication? Ordering Clinician Indication Dosage Frequency Signature (SIG) Comments Components Source lidocaine 1% (XYLOCAINE) 10 mg/mL (1 %) injection 5 mL 09-25 01:30: 00 09-25 00:55 :00 No 5mL 5 mL, Infiltrati on, ONCE, 1 dose, On Mon09/24/24 at 1930, VIRIDIANA [facility] cephALEXin 500 mg capsule 09-24 00:00: 00 09-30 05:59 :00 Yes [id number] 1000mg Take 2 capsules by mouth in the morning and 2 capsules in the evening. Do all this for 5 days. [facility] morpHINE injection 4 mg 2020-07 21:00: 00 05-31 20:00 :00 No 4mg 4 mg, Slow IV Push, ONCE, 1 dose, On Mon05/31/21 at 1600, STAT [facility] ketorolac (TORADOL) injection 30 mg 2020-07 20:45: 00 05-31 20:00 :00 No 30mg 30 mg, Slow IV Push, ONCE, 1 dose, On Mon05/31/21 at 1545, VIRIDIANA
Fa culty member approving Restricted medication : KAMERON TA [facility] iopamidol (ISOVUE 370-500 mL) injection 120 mL 2020-07 18:42: 00 05-31 18:43 :00 No [id number] 120mL 120 mL, Intravenou s, ONCE, 1 dose, On Mon05/31/21 at 1400, Routine [facility] methylPREDN ISolone 4 mg tablets 2020-07 00:00: 00 Yes [id number] Take by mouth SEE-INSTRU CTIONS. follow package directions [facility] diazePAM (VALIUM) 5 mg tablet 2020-07 00:00: 00 Yes [id number] 5mg Take 1 tablet by mouth 3 (three) times daily as needed for Muscle Spasms. [facility] traMADoL 50 mg tablet 04-04 00:00: 00 Yes [id number] 50mg Take 1 tablet by mouth every 6 (six) hours as needed for Pain (scale 4-6). Indication s: acute pain [facility] ibuprofen 600 mg tablet 04-04 00:00: 00 Yes [id number] 600mg Take 1 tablet by mouth every 6 (six) hours as needed for Pain (scale 4-6). [facility] amoxicillin 500 mg capsule 04-04 00:00: 00 Yes [id number] 500mg Take 1 capsule by mouth 3 (three) times daily. [facility] ibuprofen (MOTRIN) 400 mg tablet 03-22 00:00: 00 Yes 400mg Take 1 tablet by mouth every 6 (six) hours as needed for Pain (scale 1-3). [facility] famotidine (PEPCID) 20 mg tablet 03-22 00:00: 00 Yes 20mg Take 1 tablet by mouth at bedtime. [facility] Vital Signs Vital Name Observation Time Observation Value Comments S talia Body height 2024-09-24 23:04:00 152.4 cm [facility] Body weight 2024-09-24 23:04:00 77.111 kg [facility] BMI 2024-09-24 23:04:00 33.20 kg/m2 [facility] Systolic blood pressure 2024-09-24 23:03:00 143 mm[Hg] [facility] Diastolic blood pressure 2024-09-24 23:03:00 87 mm[Hg] [facility] Heart rate 2024-09-24 23:03:00 103 /min [facility] Body temperature 2024-09-24 23:03:00 37.06 Pretty [facility] Respiratory rate 2024-09-24 23:03:00 17 /min [facility] Oxygen saturation in Arterial blood by Pulse oximetry 2024-09-24 23:03:00 97 /min [facility] Systolic blood pressure 2021-05-31 20:05:00 125 mm[Hg] [facility] Diastolic blood pressure 2021-05-31 20:05:00 91 mm[Hg] [facility] Heart rate 2021-05-31 20:05:00 71 /min [facility] Respiratory rate 2021-05-31 20:05:00 18 /min [facility] Oxygen saturation in Arterial blood by Pulse oximetry 2021-05-31 20:05:00 100 /min [facility] Body temperature 2021-05-31 18:08:45 36.44 Pretty [facility] Systolic blood pressure 2021-04-04 16:45:00 133 mm[Hg] [facility] Diastolic blood pressure 2021-04-04 16:45:00 88 mm[Hg] [facility] Heart rate 2021-04-04 16:45:00 84 /min [facility] Body temperature 2021-04-04 16:45:00 37 Pretty [facility] Respiratory rate 2021-04-04 16:45:00 18 /min [facility] Body weight 2021-04-04 16:45:00 70.308 kg [facility] BMI 2021-04-04 16:45:00 30.27 kg/m2 [facility] Oxygen saturation in Arterial blood by Pulse oximetry 2021-04-04 16:45:00 100 /min [facility] Systolic blood pressure 2020-12-29 15:53:00 130 mm[Hg] [facility] Diastolic blood pressure 2020-12-29 15:53:00 82 mm[Hg] [facility] Heart rate 2020-12-29 15:53:00 93 /min [facility] Body temperature 2020-12-29 15:53:00 36.72 Pretty [facility] Respiratory rate 2020-12-29 15:53:00 18 /min [facility] Body height 2020-12-29 15:53:00 152.4 cm [facility] Body weight 2020-12-29 15:53:00 75.751 kg [facility] BMI 2020-12-29 15:53:00 32.61 kg/m2 [facility] Oxygen saturation in Arterial blood by Pulse oximetry 2020-12-29 15:53:00 100 /min [place] [facility] Procedures Procedure Date / Time Performed Performing Clinician Source POCT TEST 2024-09-24 23:40:00 Carlos Alberto Mckeon [facility] COMP. METABOLIC PANEL ([id number]) 2024-09-24 23:39:00 Carlos Alberto Mckeon [facility] CBC WITH DIFF 2024-09-24 23:39:00 Carlos Alberto Mckeon [facility] URINALYSIS 2024-09-24 23:39:00 Carlos Alberto Mckeon [facility] CT ABDOMEN PELVIS W CONTRAST 2021-05-31 18:50:14 Kameron Ta [facility] POCT TEST 2021-05-31 18:14:00 Wanda Ta [facility] URINALYSIS 2021-05-31 18:13:[address] [facility] LIPASE 2021-05-31 17:49:[address] [facility] TROPONIN I 2021-05-31 17:49:[address] [facility] COMP. METABOLIC PANEL ([id number]) 2021-05-31 17:49:00 Kameron Ta [facility] CBC WITH DIFF 2021-05-31 17:49:00 Kameron Ta [facility] PROTHROMBIN TIME / INR 2021-05-31 17:49:00 Trino Ta [facility] ACTIVATED PARTIAL THRMPLAS BRIDGETTE 2021-05-31 17:49:00 Kameron Ta [facility] N-TERMINAL PRO-BNP 2021-05-31 17:49:00 Kameron Ta [facility] ASSIGNMENT OF BENEFITS 2021-05-31 17:37:13 Docto r Unassigned, [place] [facility] XR CHEST 1 2021-05-31 15:57:40 Kameron Ta [facility] XR SPINE THORACIC 2 2021-05-31 15:57:40 Trino Ta [facility] CONSENT/REFUSAL FOR DIAGNOSIS AND TREATMENT 2021-05-31 15:01:39 Doctor Unassigned, [place] [facility] RAPID STREP SCREEN FOR GROUP A 2021-04-04 16:46:00 Kameron Ta [facility] COVID-19 (ID NOW RAPID TESTING) 2021-04-04 16:46:00 Kameron Ta [facility] CONSENT/REFUSAL FOR DIAGNOSIS AND TREATMENT 2021-04-04 16:41:31 Doctor Unassigned, [place] [facility] NOTICE OF PRIVACY PRACTICES 2020-12-29 15:49:02 Doctor Unassigned, [place] [facility] CONSENT/REFUSAL FOR DIAGNOSIS AND TREATMENT 2020-12-29 15:48:43 Doctor Unassigned, [place] [facility] Encounters Start Date/Time End Date/Time Encounter Type Admission Type Attending [facility] Care Facility Care Department Encounter ID Source 2021-08-11 13:56:21 Outpatient HHD HHD [id number] - [id number] [facility] ent 2024-09-24 17:05:00 2024-09-24 19:51:00 Emergency X CARLOS ALBERTO MCKEON [facility] ERT [id number] [facility] 2024-09-24 17:05:00 2024-09-24 19:51:00 Emergency Carlos Alberto Mckeon AT [facility] ([facility]) [id number] [id number] [facility] 2024-01-16 11:40:43 2024-01-16 11:40:43 Outpatient SFA [id number] [id number] Roberto Carlos Coppola 2023-12-14 15:27:26 2023-12-14 15:27:26 Outpatient SFA [id number] [id number] Roberto Carlos Coppola 2021-05-31 10:19:00 2021-05-31 15:14:00 Emergency X KAMERON TA [facility] ERT [id number] [facility] 2021-05-31 10:19:00 2021-05-31 15:14:00 Emergency Kameron Ta [facility] [id number] [id number] [id number] [facility] 2021-05-20 09:51:24 2021-05-20 12:39:13 Office Visit ZaneTonya salazar [facility] [id number] 2021-05-20 07:51:24 2021-05-20 10:39:13 Outpatient TONYA PATIÑO D HHD [id number] [facility] 2021-04-04 11:47:00 2021-04-04 13:08:00 Emergency Kameron Ta [facility] [id number] [id number] [id number] [id number] [facility] 2021-04-04 11:47:00 2021-04-04 11:47:00 Emergency X KAMERON TA [facility] ERT [id number] [facility] 2020-12-29 10:54:00 2020-12-29 11:20:00 Emergency Vicenta Bolden [facility] [id number] [id number] [id number] [facility] 2020-12-29 10:48:00 2020-12-29 10:48:00 Emergency Lana VICENTA BOLDEN [facility] ERT [id number] [facility] Results Test Description Test Time Test Comments Results Result Co mments Source [facility] WITH [id number] 23:50:07* Test Item Value Reference Range Interpretation Comme nts WBC (test code = 6690-2) 7.40 4.30-11.10 RBC (test code = 789-8) 4.16 3.93-5.25 HGB (test code = 718-7) 12.0 g/dL 11.6-15.0 HCT (test code = 4544-3) 37.6 % 35.7-45.2 MCV (test code = 787-2) 90.4 fL 80.6-95.5 MCH (test code = 785-6) 28.8 pg 25.9-32.8 MCHC (test code = 786-4) 31.9 g/dL 31.6-35.1 RDW-SD (test code = 16222-5) 43.8 fL 39.0-49.9 RDW-CV (test code = 788-0) 13.2 % 12.0-15.5 PLT (test code = 777-3) 202 166-358 MPV (test code = 93190-3) 9.9 fL 9.5-12.9 NRBC/100 WBC (test code = 1042089018) 0.0 0.0-10.0 NRBC x10^3 (test code = 8303821108) See_Comment [Automated me ssage] The system which generated this result transmitted reference range: 10*3/?L. The reference range was not used to interpret this result as normal/abnormal. GRAN MAT (NEUT) % (test code = 770-8) 60.6 % IMM GRAN % (test code = 2186484895) 0.30 % LYMPH % (test code = 736-9) 28.9 % MONO % (test code = 5905-5) 8.0 % EOS % (test code = 713-8) 1.5 % BASO % (test code = 706-2) 0.7 % GRAN MAT x10^3(ANC) (test code = 2153077271) 4.49 10*3/uL 1.88-7.09 IMM GRAN x10^3 (test code = 1158337331) 0.00-0.06 LYMPH x10^3 (test code = 731-0) 2.14 10*3/uL 1.32-3.29 MONO x10^3 (test code = 742-7) 0.59 10*3/uL 0.33-0.92 EOS x10^3 (test code = 711-2) 0.11 10*3/uL 0.03-0.39 BASO x10^3 (test code = 704-7) 0.05 10*3/uL 0.01-0.07 [facility] [id number] 23:40:00* Test Item Value Reference Range Interpretation Comme nts POCT PREG (test code = 1605) Negative On board controls acceptable with C Line (test code = 3574) Yes Lab Interpretation (test cod e = 01751-3) Normal [facility] [id number] 08:01:55* Test Item Value Reference Range Interpretation Comme [facility] HEMOGLOBIN A1c (test code = 46739) 5.2 % 4.2-5.6 UNLESS OTHERWISE INDICATED, ALL TESTING PERFORMED AT [facility] [address] [place] [address] PALLIATIVE SENIOR NP: SHMUEL SERRANO M.D. CLIA NUMBER [id number] [facility] [place]. [id number] CBC W/AUTO DIFF WITH [id number] 07:10:52* Test Item Value Reference Range Interpretation [...] 0.00-0.10 ABS NUCLEATED RBCS (test code = 58701) 0.00 K/UL 0.00-0.11 [id number] 06:16:52* Test Item Value Reference Range Interpretation Comme nts RPR RESULT (test code = 3501) NON-REACTIVE NON-REACTIVE RPR TITER (test code = 3500) NOT INDIC. TITER NOT INDIC. HEPATITIS PANEL, [id number] 06:00:10* Test Item Value Reference Range Interpretation Comme nts HEPATITIS A IgM (test code = 43902) NON-REACTIVE NON-REACTIVE HEPATITIS B CORE IgM (test code = 4644) NON-REACTIVE NON-REACTIVE HEPATITIS B SURF AG (test code = 2739) NON-REACTIVE NON-REACTIVE HEPATITIS C ANTIBODY (test code = 4675) NON-REACTIVE NON-REACTIVE INTERPRETATION HEPATITIS A: (test code = 2552) (NOTE) Hepatitis A serology shows no evidence of acute hepatitis A. INTERPRETATION HEPATITIS B: (test code = 79799) (NOTE) Hepatitis B serology shows no evidence of acute hepatitis B andno indication of exposure to hepatitis B virus in the previous june eight months. INTERPRETATION HEPATITIS C: (test code = 32594) (NOTE) Hepatitis C serology shows no evidence of exposure to hepatitisC virus at this time. It can take up to 12 months after exposure tothe hepatitis C virus for antibodies to become detectable in the blood in certain patients. VITAMIN B 12 AND FOLIC [id number] 05:58:15* Test Item Value Reference Range Interpretation [...] . . . . UG/L >=6.0 TROPONIN [id number] 18:35:03* Test Item Value Reference Range Interpretation Comments TROPONIN I (test code = 7009320829) <0.012 See_Comment [Automated message] The system which [...] of biotin. Lab Interpretation (test code = 70357-4) Normal [facility] [id number] 18:31:41* Test Item Value Reference Range Interpretation Comme nts NT-proBNP (test code = 7123457116) 53 pg/mL See_Comment [Automated message] The system which generated this result transmitted reference range: <=125. The reference range was not used to interpret this result as normal/abnormal. CHRISTEN (test code = CHRISTEN) Biotin has been reported to cause a negative bias, interpret results relative to patient's use of biotin. Lab Interpretation (test code = 11061-2) Normal [facility]IV[facility] PARTIAL THRMPLAS [id number] 18:21:42* Test Item Value Reference Range Interpretation Comme [facility] APTT Patient (test code = 3173-2) See_Comment [Automated message] The system which generated this result transmitted reference range: 23 - 38 Seconds. The reference range was not used to interpret this result as normal/abnormal. CHRISTEN (test code = CHRISTEN) The [facility] patient population mean normal value for aPTT is 30 seconds. Lab Interpretation (test code = 65780-1) Normal [facility] TIME / [id number] 18:19:42* Test Item Value Reference Range Interpretation Comme [facility] PROTIME PATIENT (test code = 5964-2) [...] the indications. Lab Interpretation (test code = 29731-9) Abnormal [facility] METABOLIC PANEL (92868)2021-05-31 18:17:02* Test Item Value Reference Range Interpretation Comme [facility] NA (test code = 5374400964) 138 mmol/L 135-145 K (test code = 8222695687) 4.0 mmol/L 3.5-5.0 CL (test code = 9204666384) 104 mmol/L 98-108 CO2 TOTAL (test code = 0311536409) 30 mmol/L 23-31 AGAP (test code = 5156552790) 2-16 BUN (test code = 9957854255) 11 mg/dL 7-23 GLUCOSE (test code = 4195027038) 98 mg/dL 70-110 CREATININE (test code = 7901413020) 0.67 mg/dL 0.50-1.04 TOTAL BILI (test code = 9870560639) 0.3 mg/dL 0.1-1.1 CALCIUM (test code = 4666156713) 9.3 mg/dL 8.6-10.6 T PROTEIN (test code = 2371263702) 8.0 g/dL 6.3-8.2 ALBUMIN (test code = 5800267789) 4.3 g/dL 3.5-5.0 ALK PHOS (test code = 8542437308) 86 U/L 34-122 ALTv (test code = 1742-6) 19 U/L 5-35 AST(SGOT) (test code = 7519792877) 26 U/L 13-40 eGFR (test code = 4360423724) mL/min/1.73m2 CHRISTEN (test code = CHRISTEN) Association [...] or urine or abnormalities in imaging tests). [facility]2021-[facility]-01 18:17:02* Test Item Value Reference Range Interpretation Comme nts LIPASE (test code = 8259225537) 111 U/L 0-220 Lab Interpretation (test cod e = 31907-2) Normal [facility] [id number] 18:14:00* Test Item Value Reference Range Interpretation Comme nts POCT PREG (test code = 1605) negative POCT PREG LOT # (test code = 3575) [id number] POCT PREG TEST DATE ( test code = 3576) 2022-07-30 Lab Interpretation (test cod e = 36808-2) Normal [facility] WITH [id number] 18:04:58* Test Item Value Reference Range Interpretation [...] g/dL 31.6-35.1 L RDW-SD (test code = 71808-8) 45.1 fL 39.0-49.9 RDW-CV (test code = 788-0) 13.7 % 12.0-15.5 PLT (test code = 777-3) See_Comment [Automated messa ge] The system which generated this result transmitted reference range: 166 - 358 10*3/?L. The reference range was not used to interpret this result as normal/abnormal. MPV (test code = 49899-4) 9.9 fL 9.5-12.9 NRBC/100 WBC (test code = 4320322295) See_Comment [Automated me ssage] The system which generated this result transmitted reference range: 0.0 - 10.0 /100 WBCs. The reference range was not used to interpret this result as normal/abnormal. NRBC x10^3 (test code = 3289570848) <0.01 See_Comment [Automated messa ge] The system which generated this result transmitted reference range: 10*3/?L. The reference range was not used to interpret this result as normal/abnormal. GRAN MAT (NEUT) % (test code = 770-8) 49.3 % IMM GRAN % (test code = 1452453629) 0.20 % LYMPH % (test code = 736-9) 40.2 % MONO % (test code = 5905-5) 8.5 % EOS % (test code = 713-8) 1.2 % BASO % (test code = 706-2) 0.6 % GRAN MAT x10^3(ANC) (test code = 8912849680) 2.51 10*3/uL 1.88-7.09 IMM GRAN x10^3 (test code = 5831622987) <0.03 0.00-0.06 LYMPH x10^3 (test code = 731-0) 2.04 10*3/uL 1.32-3.29 MONO x10^3 (test code = 742-7) 0.43 10*3/uL 0.33-0.92 EOS x10^3 (test code = 711-2) 0.06 10*3/uL 0.03-0.39 BASO x10^3 (test code = 704-7) 0.03 10*3/uL 0.01-0.07 Lab Interpretation (test code = 92456-9) Abnormal [facility] STREP SCREEN FOR GROUP [id number] 17:23:40* Test Item Value Reference Range Interpretation Comme nts Streptococcus pyogenes (grou p A) antigen (test code = 08049-3) Negative Negative Lab Interpretation (test cod e = 03266-0) Normal [facility] STREP SCREEN FOR GROUP [id number] 17:23:40* Test Item Value Reference Range Interpretation Comme nts Streptococcus pyogenes (grou p A) antigen (test code = 43446-7) Negative Negative Lab Interpretation (test cod e = 06461-3) Normal [facility]-19 (ID NOW RAPID TESTING)2021-04-04 17:13:58* Test Item Value Reference Range Interpretation Comme [facility] SARS-CoV-2 Rapid ID NOW (test code = 80440-6) Not Detected Not Detected CHRISTEN (test code = CHRISTEN) ID NOW COVID-19 As say is an isothermal nucleic acid amplification test intended for the qualitative detection of nucleic acid from SARS-CoV-2 viral RNA in nasopharyngeal (SIDING COREBOARD INSPECTOR) specimens. It is used under Emergency Use Authorization (EUA) by [facility]. The limit of detection (LOD) of the [...] clinically indicated. Lab Interpretation (test code = 94135-1) Normal [facility]-19 (ID NOW RAPID TESTING)2021-04-04 17:13:58* Test Item Value Reference Range Interpretation Comme [facility] SARS-CoV-2 Rapid ID NOW (test code = 46047-0) Not Detected Not Detected CHRISTEN (test code = CHRISTEN) ID NOW COVID-19 As say is an isothermal nucleic acid amplification test intended for the qualitative detection of nucleic acid from SARS-CoV-2 viral RNA in nasopharyngeal (SIDING COREBOARD INSPECTOR) specimens. It is used under Emergency Use [...] clinically indicated. Lab Interpretation (test code = 71906-2) Normal [facility] Notes Date/Time Note Provider Source 2024-09-24 18:28:11 RN chaperoned pt and provider for exam. Willett RN [facility] 2024-09-24 17:30:16 Lennie Ortiz is a 44 year old female presents to ED for vaginal discomfort. Pt reports "golf ball sized knot in my right side vaginal wall." Pt states it has been there for a few weeks but it has continued to grow and today its causing discomfort. Pt educated on ED processes and procedures as well as current plan of care. Pt has no further needs at this time. Bed in lowest locked position. Call light within reach. VSS. RR E/U. NAD noted. Waiting on provider for evaluation. [facility] 2024-09-24 17:01:45 Lennie Ortiz is a 44 year old female presents to ED triage with chief compliant of vaginal discomfort. Pt states during her shower today she noticed a "golf ball sized knot in my right side vaginal wall." Pt reports it is not overtly painful but causes a lot of discomfort. Denies bleeding/discharge. Denies abdominal pain at this time. No PMH reported. Last well womans was "its been a while". AAOx4. Skin warm and dry. VSS. RR E/U. NAD noted. Roomed for eval Baldwin RN [facility]
[2024-10-06] MEDS ORDERED: ONDANSETRON 4 MG/2 ML VIAL ONE (17:01)
[2024-10-06] MEDS ORDERED: FENTANYL CITR 100 MCG/2 ML ONE (17:02)
[2024-10-06] MEDS ORDERED: dexAMETHasone 10 MG/ML VIAL ONE (17:02)
[2024-10-06] MEDS ORDERED: DIAZEPAM 5 MG TABLET ONE (17:02)
[2024-10-06] MEDS ORDERED: KETOROLAC 30 MG/ML INJ ONE (17:02)
[2024-10-06] MEDS ORDERED: NA CHLORIDE 0.9% 1,000 ML ONE (17:02)
[2024-10-06 17:07] LABS: Absolute Eosinophils 0.2 K/uL (0-0.5); Absolute Lymphocytes (CBC) 1.7 K/uL (0.7-4.9); Absolute Monocytes 0.4 K/uL (0.1-1.3); Absolute Neutrophil 2.7 K/uL (1.8-8.0); Basophils % 0.9 % (0-1.3); Eosinophils % 3.6 % (0-4.4); Hematocrit 36.2 % (36.0-45.0); Lymphocytes % 33.2 % (15.3-44.8); MCH 29.4 pg (27.0-35.0); MCHC 33.2 g/dL (32.0-36.0); MCV 88.4 fL (80-100); MPV 8.1 fL (7.6-11.3); Monocytes % 8.8 % (3.3-12.3); Neutrophils % 53.5 % (41.7-73.7); Nucleated Red Blood Cells % 0.2 % (0-0); Platelets 241 thou/uL (152-406); Red Cell Distribution Width 14.3 % (12.1-15.2)
[2024-10-06 17:08] LABS: Specific Gravity 1.021 (1.005-1.030)
[2024-10-06 17:19] LABS: Sqamous Epithelial None Seen /HPF (None Seen); Urine Bacteria <20 /HPF (<20); Urine Bilirubin NEGATIVE (Negative); Urine Blood 1+ (Negative); Urine Clarity Clear (Clear); Urine Color Light-Yellow (Yellow); Urine Culture Reflex Order NOT NEEDED; Urine Glucose NEGATIVE (Negative); Urine Ketones NEGATIVE (Negative); Urine Microscopic Reflex YN ORDER UMIC; Urine Mucus Slight /HPF (None Seen); Urine Nitrite NEGATIVE (Negative); Urine Protein NEGATIVE (Negative); Urine RBC <5 /HPF (None Seen); Urine Urobilinogen Normal (Normal); Urine WBC <5 /HPF (<5); Urine pH 5.5 (5.0-7.0)
[2024-10-06 17:26] LABS: Albumin 3.3 g/dL (3.4-5.0); Albumin/Globulin Ratio 0.8 (1.1-1.8); Anion Gap 8.6 mEq/L (5.0-15.0); Bilirubin Total 0.2 mg/dL (0.2-1.0); Globulin 4.3 g/dL (2.3-3.5); Potassium 3.6 mEq/L (3.5-5.1); Protein, Total 7.6 g/dL (6.4-8.2)
--- NOTE | 2024-10-06 17:50 | RAD REPORT ---
EXAMINATION: CT LUMBAR SPINE WITHOUT CONTRAST CLINICAL INDICATION: Back pain status post trauma. TECHNIQUE: Axial CT images were obtained through the lumbar spine in soft tissue and bone windows wit hout intravenous contrast. Coronal and Sagittal reformatted images were created from the data set. One or more of the following dose reduction techniques were used: Automated exposure control, adjustm ent of the mA and/ or kV according to patient size, and/or iterative reconstruction. Unless otherwise specified, incidental findings do not require dedicated imaging follow-up. COMPARISON: No prior exam. FINDINGS: For purposes of this dictation, it is assumed that there are 5 non rib-bearing lumbar type vertebrae, and the most caudal fully segmented lumbar vertebra is labeled L5. No fracture seen No dislocation. Possible small left lateral disc herniation L2-3. Small left paracentral disc herniation L4-5 suspected. IMPRESSION: No fracture seen Possible small disc herniations L2-3 and L4-5 If the patient continues to have symptoms to suggest significant spinal canal/neural foraminal patho logy then MRI would be recommended
--- NOTE | 2024-10-06 18:12 | EDPHYS ---
Physician Documentation [facility] Name: Lennie Peguero Age: 44 yrs Sex: Female : 1980 Arrival Date: 10/06/2024 Time: 16:05 Bed 23 Private MD: NICHO Physician Gonzalo Kessler HPI: 10/06 16:46 This 44 yrs old Female presents to ER via Ambulatory with complaints of Back hiral Pain. 16:46 The patient presents with pain that is acute, with no known mechanism of injury. The hiral symptoms are located in the low back. Onset: The symptoms/episode began/occurred 14 day(s) ago. The pain does not radiate. Associated signs and symptoms: The patient has no apparent associated signs or symptoms. The problem was sustained from unknown cause. Modifying factors: The patient symptoms are alleviated by remaining still, rest, the patient symptoms are aggravated by any movement, bending. Severity of symptoms: At their worst the symptoms were moderate, in the emergency department the symptoms are unchanged. The patient has not experienced similar symptoms in the past. 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 - Infectious Disease History:: Denies. - Social history:: Smoking status: Patient reports the use of cigarette tobacco products, smokes one-half pack cigarettes per day, Patient uses alcohol, weekly. - Family history:: not pertinent. ROS: 16:46 Constitutional: Negative for fever, chills, and weight loss, Eyes: Negative for injury, hiral pain, redness, and discharge, ENT: Negative for injury, pain, and discharge, Neck: Negative for injury, pain, and swelling, Cardiovascular: Negative for chest pain, palpitations, and edema, Respiratory: Negative for shortness of breath, cough, wheezing, and pleuritic chest pain, Abdomen/GI: Negative for abdominal pain, nausea, vomiting, diarrhea, and constipation, : Negative for injury, bleeding, discharge, and swelling, MS/Extremity: Negative for injury and deformity, Skin: Negative for injury, rash, and discoloration, Neuro: Negative for headache, weakness, numbness, tingling, and seizure, Psych: Negative for depression, anxiety, suicide ideation, homicidal ideation, and hallucinations, Allergy/Immunology: Negative for hives, rash, and allergies, Endocrine: Negative for neck swelling, polydipsia, polyuria, polyphagia, and marked weight changes, Hematologic/Lymphatic: Negative for swollen nodes, abnormal bleeding, and unusual bruising, 16:46 Back: Positive for decreased range of motion, pain at rest, pain with movement, of the right low back, Exam: 16:46 Constitutional: This is a well developed, well nourished patient who is awake, alert, hiral and in no acute distress. Head/Face: Normocephalic, atraumatic. Eyes: Pupils equal round and reactive to light, extra-ocular motions intact. Lids and lashes normal. Conjunctiva and sclera are non-icteric and not injected. Cornea within normal limits. Periorbital areas with no swelling, redness, or edema. ENT: Nares patent. No nasal discharge, no septal abnormalities noted. Tympanic membranes are normal and external auditory canals are clear. Oropharynx with no redness, swelling, or masses, exudates, or evidence of obstruction, uvula midline. Mucous membranes moist. Neck: Trachea midline, no thyromegaly or masses palpated, and no cervical lymphadenopathy. Supple, full range of motion without nuchal rigidity, or vertebral point tenderness. No Meningismus. Chest/axilla: Normal chest wall appearance and motion. Nontender with no deformity. No lesions are appreciated. Cardiovascular: Regular rate and rhythm with a normal S1 and S2. No gallops, murmurs, or rubs. Normal PMI, no JVD. No pulse deficits. Respiratory: Lungs have equal breath sounds bilaterally, clear to auscultation and percussion. No rales, rhonchi or wheezes noted. No increased work of breathing, no retractions or nasal flaring. Abdomen/GI: Soft, non-tender, with normal bowel sounds. No distension or tympany. No guarding or rebound. No evidence of tenderness throughout. Skin: Warm, dry with normal turgor. Normal color with no rashes, no lesions, and no evidence of cellulitis. MS/ Extremity: Pulses equal, no cyanosis. Neurovascular intact. Full, normal range of motion., bilateral aka Neuro: Awake and alert, GCS 15, oriented to person, place, time, and situation. Cranial nerves II-XII grossly intact. Motor strength 5/5 in all extremities. Sensory grossly intact. Cerebellar exam normal. Normal gait. Psych: Awake, alert, with orientation to person, place and time. Behavior, mood, and affect are within normal limits. 16:46 Back: pain, that is moderate, ROM is painful, with all movement, normal spinal alignment noted, CVA tenderness, is absent, vertebral tenderness, is not appreciated, 16:46 Skin: Exam negative for abrasion, abscess, any evidence of obvious injury, lesions, petechiae, rash, abscess, not appreciated, cellulitis, is not appreciated, induration, is not appreciated, no rash present. Turgor: is excellent, Vital Signs: 16:22 BP 131 / 94; Pulse 76; Resp 18; Temp 97.6(O); Pulse Ox 99% on R/A; Weight 77.11 kg; jb4 Height 5 ft. 0 in. ; Pain 10/10; 18:35 BP 125 / 93; Pulse 81; Resp 16; Pulse Ox 99% on R/A; jb4 16:22 Body Mass Index 33.20 (77.11 kg, 152.4 cm) jb4 16:22 Pain Scale: Adult jb4 MDM: 16:21 Medical Screening Exam initiated hiral 16:49 Differential diagnosis: arthritis, chronic back pain, Fatigue Fracture Hydronephrosis hiral Obesity Osteoporosis ruptured disc, Scoliosis sprain, Ureterolithiasis. Data reviewed: vital signs, nurses notes, lab test result(s), radiologic studies, CT scan. Consideration of Admission/Observation Escalation of care including admission/observation considered. I considered the following discharge prescriptions or medication management in the emergency department Medications were administered in the Emergency Department. See MAR. Independent interpretation of the following test(s) in the Emergency Department CT Scan: My interpretation is ct lunbar. Test considered but Not performed: MRI: no mri spine. Historians other than the Patient: Friend: friend well informed. Care significantly affected by the following chronic conditions: Obesity. 10/06 16:46 Order name: CBC with Diff; Complete Time: 17:28 [facility] 10/06 16:46 Order name: Comprehensive Metabolic Panel; Complete Time: 17:28 [facility] 10/06 16:46 Order name: Urinalysis w/ reflexes; Complete Time: 17:28 [facility] 10/06 16:46 Order name: PREGU; Complete Time: 17:28 [facility] 10/06 16:46 Order name: CT Lumbar Spine Wo Con; Complete Time: 18:11 hiral Administered Medications: 17:17 Drug: Diazepam PO 10 mg PO once Route: PO; jb4 18:37 Follow up: Response: No adverse reaction; Marked relief of symptoms; Pain is decreased jb4 17:17 Drug: Ketorolac IVP 30 mg IVP once Route: IVP; Site: right antecubital; jb4 18:37 Follow up: Response: No adverse reaction; Marked relief of symptoms; Pain is decreased jb4 17:17 Drug: Ondansetron IVP 4 mg IVP once; over 2 minutes Route: IVP; Site: right antecubital;jb4 18:36 Follow up: Response: No adverse reaction; Marked relief of symptoms; Pain is decreased jb4 17:17 Drug: Decadron - Dexamethasone IVP 10 mg IVP once Route: IVP; Site: right antecubital; jb4 18:36 Follow up: Response: No adverse reaction; Marked relief of symptoms; Pain is decreased jb4 17:17 Drug: fentaNYL (PF) IVP 50 mcg IVP once Route: IVP; Site: right antecubital; jb4 18:36 Follow up: Response: No adverse reaction; Marked relief of symptoms; Pain is decreased jb4 17:17 Drug: NS 0.9% IV 1000 ml IV at 1000 ml once; to be given as a bolus over 60 minutes jb4 Route: IV; Rate: 1000 ml; Site: right antecubital; 18:37 Follow up: Response: No adverse reaction; Marked relief of symptoms; IV Status: Pt jb4 discharged; IV Intake: 800ml Disposition Summary: 10/06/24 18:11 Discharge Ordered Notes: Location: Home hiral Problem: new hiral Symptoms: have improved hiral Condition: Stable hiral Diagnosis - Low back pain hiral - Other injury of muscle and tendon of back wall of thorax hiral - Muscle spasm of back hiral - Other intervertebral disc disorders, lumbar region hiral Followup: hiral - With: Private Physician - When: 2 - 3 days - Reason: Recheck today's complaints, Continuance of care, Re-evaluation by your physician Followup: hiral - With: Scott Diego MD - When: 2 - 3 days - Reason: Recheck today's complaints, Re-evaluation by your physician Discharge Instructions: - Discharge Summary Sheet hiral - Acute Back Pain, Adult hiral - Musculoskeletal Pain hiral - Radicular Pain [facility] Forms: - Medication Reconciliation Form hiral - Antibiotic Education hiral - Prescription Opioid Use hiral - Patient Portal Instructions [facility] - Leadership Thank You Letter [facility] Prescriptions: - diclofenac sodium 50 mg Oral tablet, delayed release (enteric coated) - take 1 tablet ORAL route 3 times per day; 21 tablet; Refills: 0, Product [facility] Selection Permitted - methocarbamol 750 mg Oral tablet - take 1 tablet ORAL route 4 times per day; 28 tablet; Refills: 0, Product [facility] Selection Permitted - Tylenol-Codeine #3 300mg-30mg Oral tablet - take 2 tablets ORAL route every 6 hours As needed; 20 tablet; Refills: 0, [facility] Product Selection Permitted - Dexamethasone 4mg Oral tablet - take 1 tablet ORAL route daily for 4 days; 4 tablet; Refills: 0, Product [facility] Selection Permitted Signatures: Dispatcher [employer] EDGonzalo Cabrera MD MD cha Bryson, James, RN RN jb4 Corrections: (The following items were deleted from the chart) 16:46 16:46 CBC+H.LAB.BRZ ordered. EDMS EDMS 16:46 16:46 COMPREHENSIVE METABOLIC PANEL+C.LAB.BRZ ordered. EDMS EDMS 16:46 16:46 Urinalysis+U.LAB.BRZ ordered. EDMS EDMS 16:46 16:46 Test, Urine+UC.LAB.BRZ ordered. EDMS EDMS 16:46 16:46 Spine Lumbar Wo Con+CT.RAD.BRZ ordered. EDMS EDMS
--- NOTE | 2024-10-06 18:12 | ER ---
Nurse's Notes [facility] [place] [place] Name: Lennie Peguero Age: 44 yrs Sex: Female : 1980 Arrival Date: 10/06/2024 Time: 16:05 Bed 23 Private MD: Diagnosis: Low back pain;Other injury of muscle and tendon of back wall of thorax;Muscle spasm of back;Other intervertebral disc disorders, lumbar region Presentation: 10/06 16:22 Chief complaint: Patient states: I have been having back pain for the past 2 weeks. It jb4 started to get worse on Monday. Monday I bent over to sweep something and had a sharp sudden increase in pain. Today I was brushing my teeth, I made myself gag which made a sudden sharp pain in my back and I felt like I had to come in. Coronavirus screen: At this time, the client does not indicate any symptoms associated with coronavirus-19. Ebola Screen: No symptoms or risks identified at this time. Initial Sepsis Screen: Does the patient meet any 2 criteria? No. Patient's initial sepsis screen is negative. Does the patient have a suspected source of infection? No. Patient's initial sepsis screen is negative. Risk Assessment: Do you want to hurt yourself or someone else? Patient reports no desire to harm self or others. Onset of symptoms was October 06, 2024. Transition of care: patient was not received from another setting of care. 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 - Infectious Disease History:: Denies. - Social history:: Smoking status: Patient reports the use of cigarette tobacco products, smokes one-half pack cigarettes per day, Patient uses alcohol, weekly. - Family history:: not pertinent. Screenin:26 [facility] ED Fall Risk Assessment (Adult) History of falling in the last 3 months, jb4 including since admission No falls in past 3 months (0 pts) Confusion or Disorientation No (0 pts) Intoxicated or Sedated No (0 pts) Impaired Gait No (0 pts) Mobility Assist Device Used No (0 pt) Altered Elimination No (0 pt) Score/Fall Risk Level 0 - 2 = Low Risk Oriented to surroundings, Maintained a safe environment. Abuse screen: Denies threats or abuse. Nutritional screening: No deficits noted. Tuberculosis screening: No symptoms or risk factors identified. Assessment: 16:26 General: Appears in no apparent distress. uncomfortable, Behavior is calm, cooperative, jb4 appropriate for age. Pain: Complains of pain in back Pain does not radiate. Pain currently is 10 out of 10 on a pain scale. Quality of pain is described as sharp. Neuro: Level of Consciousness is awake, alert, obeys commands, Oriented to person, place, time, situation. Cardiovascular: Patient's skin is warm and dry. Respiratory: Airway is patent Respiratory effort is even, unlabored, Respiratory pattern is regular, symmetrical. Derm: Skin is intact, Skin is pink, warm \T\ dry. Musculoskeletal: Circulation, motion, and sensation intact. Range of motion: intact in all extremities. 17:41 Reassessment: Patient appears in no apparent distress at this time. Patient and/or jb4 family updated on plan of care and expected duration. Pain level reassessed. Patient is alert, oriented x 3, equal unlabored respirations, skin warm/dry/pink. Pt back from CT. 18:35 Reassessment: Patient appears in no apparent distress at this time. Patient and/or jb4 family updated on plan of care and expected duration. Pain level reassessed. Patient is alert, oriented x 3, equal unlabored respirations, skin warm/dry/pink. Vital Signs: 16:22 BP 131 / 94; Pulse 76; Resp 18; Temp 97.6(O); Pulse Ox 99% on R/A; Weight 77.11 kg; jb4 Height 5 ft. 0 in. ; Pain 10/10; 18:35 BP 125 / 93; Pulse 81; Resp 16; Pulse Ox 99% on R/A; jb4 16:22 Body Mass Index 33.20 (77.11 kg, 152.4 cm) [facility] 16:22 Pain Scale: Adult jb4 ED Course: 16:09 Patient arrived in ED. al6 16:21 Gonzalo Kessler MD is Attending Physician. [facility] 16:22 Leon, Lenin, RN is Primary Nurse. jb4 16:24 Triage completed. jb4 16:24 Arm band placed on right wrist. jb4 16:26 Patient has correct armband on for positive identification. Bed in low position. Call jb4 light in reach. Side rails up X 1. Provided Education on: plan of care. 16:26 No provider procedures requiring assistance completed. jb4 16:43 Inserted saline lock: in right antecubital area, using aseptic technique. Blood jb4 collected. 17:40 CT Lumbar Spine Wo Con In Process Unspecified. EDMS 18:11 Scott Diego MD is Referral Physician. hiral 18:35 IV discontinued, intact, bleeding controlled, No redness/swelling at site. Pressure jb4 dressing applied. Administered Medications: 17:17 Drug: Diazepam PO 10 mg PO once Route: PO; jb4 18:37 Follow up: Response: No adverse reaction; Marked relief of symptoms; Pain is decreased jb4 17:17 Drug: Ketorolac IVP 30 mg IVP once Route: IVP; Site: right antecubital; jb4 18:37 Follow up: Response: No adverse reaction; Marked relief of symptoms; Pain is decreased jb4 17:17 Drug: Ondansetron IVP 4 mg IVP once; over 2 minutes Route: IVP; Site: right antecubital;jb4 18:36 Follow up: Response: No adverse reaction; Marked relief of symptoms; Pain is decreased jb4 17:17 Drug: Decadron - Dexamethasone IVP 10 mg IVP once Route: IVP; Site: right antecubital; jb4 18:36 Follow up: Response: No adverse reaction; Marked relief of symptoms; Pain is decreased jb4 17:17 Drug: fentaNYL (PF) IVP 50 mcg IVP once Route: IVP; Site: right antecubital; jb4 18:36 Follow up: Response: No adverse reaction; Marked relief of symptoms; Pain is decreased jb4 17:17 Drug: NS 0.9% IV 1000 ml IV at 1000 ml once; to be given as a bolus over 60 minutes jb4 Route: IV; Rate: 1000 ml; Site: right antecubital; 18:37 Follow up: Response: No adverse reaction; Marked relief of symptoms; IV Status: Pt jb4 discharged; IV Intake: 800ml Medication: 16:26 VIS not applicable for this client. jb4 Intake: 18:37 IV: 800ml; Total: 800ml. jb4 Outcome: 18:11 Discharge ordered by . hiral 18:35 Discharged to home via wheelchair, with family, jbGibson 18:35 Condition: stable 18:35 Discharge instructions given to patient, Instructed on discharge instructions, follow up and referral plans. no drinking with medication, no driving heavy equipment, medication usage, Demonstrated understanding of instructions, follow-up care, medications, Prescriptions given X 4, 18:37 Patient left the ED. jb4 Signatures: Dispatcher [employer] EDGonzalo Cabrera MD MD cha Bryson, James RN RN jb4 Lu Reis6
[2024-10-06 18:54] VITALS: TEMP 97.6; O2SAT 99
[2024-10-06 18:58] VITALS: BP 125/93
== END 2024-10-06 18:37 | disposition home or self-care (01) ==
LOC: ER 16:05
DX: S29.092A Other injury of muscle and tendon of back wall of thorax, initial encounter (principal); M62.830 Muscle spasm of back; M51.86 Other intervertebral disc disorders, lumbar region
CPT/HCPCS: 36415; 72131; 80053; 81001; 81025; 85025; 96361; 96374; 96375; 99284; J1100; J2405; J3010; J7030

== ENCOUNTER 2024-10-29 18:19 | Emergency (ER) | payer OTHER, SELFPAY ==
--- OUTSIDE RECORDS SUMMARY | 2024-10-29 18:23 | XMS REPORT | Continuity of Care Document ---
Author Name Unknown Address [address] [facility] [address] [place] [address] [facility] [place] Address [address] [facility] [address] [place] [address] Care Team Providers Care Fishery Biologist Name Role Phone Pcp, Patient Does Not Have A Primary Care Physic marion CARLOS ALBERTO MCKEON Attending Clinician Unavailable CARLOS ALBERTO MCKEON Attending Clinician Unavailable Carlos Alberto Mckeon PA-C Attending Clinician [phone] KAMERON TA Attending Clinician Unavailable Kameron Ta MD Attending Clinician [phone] Tonya Patiño CMA Attending Clinician [phone] TONYA PATIÑO Attending Clinician Unavailable Vicenta Bolden DO Attending Clinician [phone] VICENTA BOLDEN Attending Clinician Unavailab KAMERON Chacon Admitting Clinician Unavailable Payers Payer Name Policy Type Policy Number Effective Date Expirati on Date Source [facility] [place] [place] [facility] [employer] 7 [id number] 2021 00:00:00 [facility] [id number] 2024 00:00:00 [facility] [place] [facility] [id number] 00:00:00 MEDICAID PENDING PENDING 2020 00:00:00 Problems Condition Name Condition Details Condition Category Status Onset Date Resolution Date Last Treatment Date Treating Clinician Comments Source No known active problems No known active problems Disease [facility] Allergies, Adverse Reactions, Alerts Allergy Name Allergy Type Status Severity Reaction(s) Onset Date Inactive Date Treating Clinician Comments Source NO KNOWN ALLERGIE S Drug Class Active [facility] Social History Social Habit Start Date Stop Date Quantity Comments Source [facility] to SARS-[facility]-2 (event) Not sure [facility] Sex assigned at 1980 00:00:00 1980 00:00:00 [facility] Smoking Status Start Date Stop Date Source Tobacco smoking consumption unknown [facility] Medications Ordered Medication Name Filled Medication Name Start Date Stop Date Current Medication? Ordering Clinician Indication Dosage Frequency Signature (SIG) Comments Components Source lidocaine 1% (XYLOCAINE) 10 mg/mL (1 %) injection 5 mL 09-25 01:30: 00 09-25 00:55 :00 No 5mL 5 mL, Infiltrati on, ONCE, 1 dose, On Mon09/24/24 at 1930, VIRIDIANA [facility] cephALEXin 500 mg capsule 09-24 00:00: 00 09-30 05:59 :00 Yes [id number] 1000mg Take 2 capsules by mouth in the morning and 2 capsules in the evening. Do all this for 5 days. [facility] morpHINE injection 4 mg 2020-07 21:00: 00 05-31 20:00 :00 No 4mg 4 mg, Slow IV Push, ONCE, 1 dose, On Mon05/31/21 at 1600, STAT [facility] ketorolac (TORADOL) injection 30 mg 2020-07 20:45: 00 05-31 20:00 :00 No 30mg 30 mg, Slow IV Push, ONCE, 1 dose, On Mon05/31/21 at 1545, VIRIDIANA
Fa culty member approving Restricted medication : KAMERON TA [facility] iopamidol (ISOVUE 370-500 mL) injection 120 mL 2020-07 18:42: 00 05-31 18:43 :00 No [id number] 120mL 120 mL, Intravenou s, ONCE, 1 dose, On Mon05/31/21 at 1400, Routine [facility] methylPREDN ISolone 4 mg tablets 2020-07 00:00: 00 Yes [id number] Take by mouth SEE-INSTRU CTIONS. follow package directions [facility] diazePAM (VALIUM) 5 mg tablet 2020-07 00:00: 00 Yes [id number] 5mg Take 1 tablet by mouth 3 (three) times daily as needed for Muscle Spasms. [facility] traMADoL 50 mg tablet 04-04 00:00: 00 Yes [id number] 50mg Take 1 tablet by mouth every 6 (six) hours as needed for Pain (scale 4-6). Indication s: acute pain [facility] ibuprofen 600 mg tablet 04-04 00:00: 00 Yes [id number] 600mg Take 1 tablet by mouth every 6 (six) hours as needed for Pain (scale 4-6). [facility] amoxicillin 500 mg capsule 04-04 00:00: 00 Yes [id number] 500mg Take 1 capsule by mouth 3 (three) times daily. [facility] ibuprofen (MOTRIN) 400 mg tablet 03-22 00:00: 00 Yes 400mg Take 1 tablet by mouth every 6 (six) hours as needed for Pain (scale 1-3). [facility] famotidine (PEPCID) 20 mg tablet 03-22 00:00: 00 Yes 20mg Take 1 tablet by mouth at bedtime. [facility] Vital Signs Vital Name Observation Time Observation Value Comments S talia Body height 2024-09-24 23:04:[address] [facility] Body weight 2024-09-24 23:04:[address] [facility] BMI 2024-09-24 23:04:00 33.20 kg/m2 [facility] Systolic blood pressure 2024-09-24 23:03:00 143 mm[Hg] [facility] Diastolic blood pressure 2024-09-24 23:03:00 87 mm[Hg] [facility] Heart rate 2024-09-24 23:03:00 103 /min [facility] Body temperature 2024-09-24 23:03:00 37.06 Pretty [facility] Respiratory rate 2024-09-24 23:03:00 17 /min [facility] Oxygen saturation in Arterial blood by Pulse oximetry 2024-09-24 23:03:00 97 /min [facility] Systolic blood pressure 2021-05-31 20:05:00 125 mm[Hg] [facility] Diastolic blood pressure 2021-05-31 20:05:00 91 mm[Hg] [facility] Heart rate 2021-05-31 20:05:00 71 /min [facility] Respiratory rate 2021-05-31 20:05:00 18 /min [facility] Oxygen saturation in Arterial blood by Pulse oximetry 2021-05-31 20:05:00 100 /min [facility] Body temperature 2021-05-31 18:08:45 36.44 Pretty [facility] Systolic blood pressure 2021-04-04 16:45:00 133 mm[Hg] [facility] Diastolic blood pressure 2021-04-04 16:45:00 88 mm[Hg] [facility] Heart rate 2021-04-04 16:45:00 84 /min [facility] Body temperature 2021-04-04 16:45:00 37 Pretty [facility] Respiratory rate 2021-04-04 16:45:00 18 /min [facility] Body weight 2021-04-04 16:45:[address] [facility] BMI 2021-04-04 16:45:00 30.27 kg/m2 [facility] Oxygen saturation in Arterial blood by Pulse oximetry 2021-04-04 16:45:00 100 /min [facility] Systolic blood pressure 2020-12-29 15:53:00 130 mm[Hg] [facility] Diastolic blood pressure 2020-12-29 15:53:00 82 mm[Hg] [facility] Heart rate 2020-12-29 15:53:00 93 /min [facility] Body temperature 2020-12-29 15:53:00 36.72 Pretty [facility] Respiratory rate 2020-12-29 15:53:00 18 /min [facility] Body height 2020-12-29 15:53:[address] [facility] Body weight 2020-12-29 15:53:[address] [facility] BMI 2020-12-29 15:53:00 32.61 kg/m2 [facility] Oxygen saturation in Arterial blood by Pulse oximetry 2020-12-29 15:53:00 100 /min [place] [facility] Procedures Procedure Date / Time Performed Performing Clinician Source POCT TEST 2024-09-24 23:40:00 Carlos Alberto Mckeon [facility] COMP. METABOLIC PANEL (80538) 2024-09-24 23:39:00 Carlos Alberto Mckeon [facility] CBC WITH DIFF 2024-09-24 23:39:00 Carlos Alberto Mckeon [facility] URINALYSIS 2024-09-24 23:39:00 Carlos Alberto Mckeon [facility] CT ABDOMEN PELVIS W CONTRAST 2021-05-31 18:50:14 Kameron Ta [facility] POCT TEST 2021-05-31 18:14:00 Wanda Ta [facility] URINALYSIS 2021-05-31 18:13:00 [facility] LIPASE 2021-05-31 17:49:00 [facility] TROPONIN I 2021-05-31 17:49:00 [facility] Ta [facility] COMP. METABOLIC PANEL (48564) 2021-05-31 17:49:00 Kameron Ta [facility] CBC WITH DIFF 2021-05-31 17:49:[address] [facility] PROTHROMBIN TIME / INR 2021-05-31 17:49:00 Trino Ta [facility] ACTIVATED PARTIAL THRMPLAS BRIDGETTE 2021-05-31 17:49:00 Kameron Ta [facility] N-TERMINAL PRO-BNP 2021-05-31 17:49:00 Kameron Ta [facility] ASSIGNMENT OF BENEFITS 2021-05-31 17:37:13 Docto r Unassigned, Trout [facility] XR CHEST 1 2021-05-31 15:57:[address] [facility] XR SPINE THORACIC 2 2021-05-31 15:57:40 Trino Ta [facility] CONSENT/REFUSAL FOR DIAGNOSIS AND TREATMENT 2021-05-31 15:01:39 Doctor Unassigned, Trout [facility] RAPID STREP SCREEN FOR GROUP A 2021-04-04 16:46:00 Kameron Ta [facility] COVID-19 (ID NOW RAPID TESTING) 2021-04-04 16:46:00 Kameron Ta [facility] CONSENT/REFUSAL FOR DIAGNOSIS AND TREATMENT 2021-04-04 16:41:31 Doctor Unassigned, Trout [facility] NOTICE OF PRIVACY PRACTICES 2020-12-29 15:49:02 Doctor Unassigned, Trout [facility] CONSENT/REFUSAL FOR DIAGNOSIS AND TREATMENT 2020-12-29 15:48:43 Doctor Unassigned, Trout [facility] Encounters Start Date/Time End Date/Time Encounter Type Admission Type Attending [facility] Care Facility Care Department Encounter ID Source 2021-08-11 13:56:21 Outpatient HHD HHD [id number] - [id number] [facility] ent 2024-09-24 17:05:00 2024-09-24 19:51:00 Emergency X CARLOS ALBERTO MCKEON [facility] ERT [id number] [facility] 2024-09-24 17:05:00 2024-09-24 19:51:00 Emergency Carlos Alberto Mckeon [place] ([place]) [id number] [facility] 2024-01-16 11:40:43 2024-01-16 11:40:43 Outpatient SFA SFA [id number] Roberto Carlos Coppola 2023-12-14 15:27:26 2023-12-14 15:27:26 Outpatient SFA SFA [id number] Roberto Carlos Coppola 2021-05-31 10:19:00 2021-05-31 15:14:00 Emergency X KAMERON TA [facility] ERT [id number] [facility] 2021-05-31 10:19:00 2021-05-31 15:14:00 Emergency Kameron Ta [facility] [id number] [id number] [facility] 2021-05-20 09:51:24 2021-05-20 12:39:13 Office Visit ZaneTonya salazar [facility] N [id number] 2021-05-20 07:51:24 2021-05-20 10:39:13 Outpatient TONYA PATIÑO D HHD [id number] [facility] 2021-04-04 11:47:00 2021-04-04 13:08:00 Emergency Kameron Ta [facility] [id number] [id number] [facility] 2021-04-04 11:47:00 2021-04-04 11:47:00 Emergency X KAMERON TA [facility] ERT [id number] [facility] 2020-12-29 10:54:00 2020-12-29 11:20:00 Emergency Vicenta Bolden [facility] [id number] [facility] 2020-12-29 10:48:00 2020-12-29 10:48:00 Emergency Lana VICENTA BOLDEN [facility] ERT [id number] [facility] Results Test Description Test Time Test Comments Results Result Co mments Source [facility] WITH [id number] 23:50:07* Test Item Value Reference Range Interpretation [...] 31.9 g/dL 31.6-35.1 RDW-SD (test code = 67873-3) 43.8 fL 39.0-49.9 RDW-CV (test code = 788-0) 13.2 % 12.0-15.5 PLT (test code = 777-3) 202 166-358 MPV (test code = 29633-7) 9.9 fL 9.5-12.9 NRBC/100 WBC (test code = 8033822516) 0.0 0.0-10.0 NRBC x10^3 (test code = 9036599632) See_Comment [Automated me ssage] The system which generated this result transmitted reference range: 10*3/?L. The reference range was not used to interpret this result as normal/abnormal. GRAN MAT (NEUT) % (test code = 770-8) 60.6 % IMM GRAN % (test code = 0576715457) 0.30 % LYMPH % (test code = 736-9) 28.9 % MONO % (test code = 5905-5) 8.0 % EOS % (test code = 713-8) 1.5 % BASO % (test code = 706-2) 0.7 % GRAN MAT x10^3(ANC) (test code = 2518030189) 4.49 10*3/uL 1.88-7.09 IMM GRAN x10^3 (test code = 1910444084) 0.00-0.06 LYMPH x10^3 (test code = 731-0) 2.14 10*3/uL 1.32-3.29 MONO x10^3 (test code = 742-7) 0.59 10*3/uL 0.33-0.92 EOS x10^3 (test code = 711-2) 0.11 10*3/uL 0.03-0.39 BASO x10^3 (test code = 704-7) 0.05 10*3/uL 0.01-0.07 [facility] [id number] 23:40:00* Test Item Value Reference Range Interpretation Comme nts POCT PREG (test code = 1605) Negative On board controls acceptable with C Line (test code = 3574) Yes Lab Interpretation (test cod e = 97476-9) Normal [facility] [id number] 08:01:55* Test Item Value Reference Range Interpretation Comme [facility] HEMOGLOBIN A1c (test code = 73750) 5.2 % 4.2-5.6 UNLESS OTHERWISE INDICATED, ALL TESTING PERFORMED AT [facility] [address] [place] [address] GLOBAL PRESIDENT: SHMUEL SERRANO M.D. CLIA NUMBER [id number] [facility] [place]. [id number] CBC W/AUTO DIFF WITH [id number] 07:10:52* Test Item Value Reference Range Interpretation [...] 0.00-0.10 ABS NUCLEATED RBCS (test code = 31503) 0.00 K/UL 0.00-0.11 [id number] 06:16:52* Test Item Value Reference Range Interpretation Comme nts RPR RESULT (test code = 3501) NON-REACTIVE NON-REACTIVE RPR TITER (test code = 3500) NOT INDIC. TITER NOT INDIC. HEPATITIS PANEL, [id number] 06:00:10* Test Item Value Reference Range Interpretation Comme nts HEPATITIS A IgM (test code = 43181) NON-REACTIVE NON-REACTIVE HEPATITIS B CORE IgM (test code = 4644) NON-REACTIVE NON-REACTIVE HEPATITIS B SURF AG (test code = 2739) NON-REACTIVE NON-REACTIVE HEPATITIS C ANTIBODY (test code = 4675) NON-REACTIVE NON-REACTIVE INTERPRETATION HEPATITIS A: (test code = 2552) (NOTE) Hepatitis A serology shows no evidence of acute hepatitis A. INTERPRETATION HEPATITIS B: (test code = 39923) (NOTE) Hepatitis B serology shows no evidence of acute hepatitis B andno indication of exposure to hepatitis B virus in the previous june eight months. INTERPRETATION HEPATITIS C: (test code = 84408) (NOTE) Hepatitis C serology shows no evidence of exposure to hepatitisC virus at this time. It can take up to 12 months after exposure tothe hepatitis C virus for antibodies to become detectable in the blood in certain patients. VITAMIN B 12 AND FOLIC [id number] 05:58:15* Test Item Value Reference Range Interpretation [...] . . . . UG/L >=6.0 TROPONIN [id number] 18:35:03* Test Item Value Reference Range Interpretation Comments TROPONIN I (test code = 8620978083) <0.012 See_Comment [Automated message] The system which [...] of biotin. Lab Interpretation (test code = 88895-1) Normal [facility] [id number] 18:31:41* Test Item Value Reference Range Interpretation Comme nts NT-proBNP (test code = 1973870899) 53 pg/mL See_Comment [Automated message] The system which generated this result transmitted reference range: <=125. The reference range was not used to interpret this result as normal/abnormal. CHRISTEN (test code = CHRISTEN) Biotin has been reported to cause a negative bias, interpret results relative to patient's use of biotin. Lab Interpretation (test code = 67385-9) Normal [facility] PART[facility] THRMPLAS [id number] 18:21:42* Test Item Value Reference Range Interpretation Comme [facility] APTT Patient (test code = 3173-2) See_Comment [Automated message] The system which generated this result transmitted reference range: 23 - 38 Seconds. The reference range was not used to interpret this result as normal/abnormal. CHRISTEN (test code = CHRISTEN) The [facility] patient population mean normal value for aPTT is 30 seconds. Lab Interpretation (test code = 09952-1) Normal [facility] / [id number] 18:19:42* Test Item Value Reference Range Interpretation Comme [facility] PROTIME PATIENT (test code = 5964-2) See_Comment L [Automated messa ge] The system which generated this result transmitted reference range: 12.0 - 14.7 Seconds. The reference range was not used to interpret this result as normal/abnormal. INR (test code = 6301-6) Normal INR <1.1; Warfarin Therapeutic range 2.0 to 3.0 or 2.5 to 3.5, depending upon the indications. Lab Interpretation (test code = 42598-5) Abnormal [facility] MET[facility]OLIC PANEL (25587)2021-05-31 18:17:02* Test Item Value Reference Range Interpretation Comme [facility] NA (test code = 0885961358) 138 mmol/L 135-145 K (test code = 7592187834) 4.0 mmol/L 3.5-5.0 CL (test code = 3429056016) 104 mmol/L 98-108 CO2 TOTAL (test code = 6387172034) 30 mmol/L 23-31 AGAP (test code = 1670813905) 2-16 BUN (test code = 0276804720) 11 mg/dL 7-23 GLUCOSE (test code = 9989043946) 98 mg/dL 70-110 CREATININE (test code = 5904672306) 0.67 mg/dL 0.50-1.04 TOTAL BILI (test code = 8336940811) 0.3 mg/dL 0.1-1.1 CALCIUM (test code = 6567372694) 9.3 mg/dL 8.6-10.6 T PROTEIN (test code = 0825906620) 8.0 g/dL 6.3-8.2 ALBUMIN (test code = 0278477142) 4.3 g/dL 3.5-5.0 ALK PHOS (test code = 1983181015) 86 U/L 34-122 ALTv (test code = 1742-6) 19 U/L 5-35 AST(SGOT) (test code = 8145776714) 26 U/L 13-40 eGFR (test code = 7500270093) mL/min/1.73m2 CHRISTEN (test code = CHRISTEN) Association [...] or urine or abnormalities in imaging tests). [facility] 18:17:02* Test Item Value Reference Range Interpretation Comme nts LIPASE (test code = 2650931879) 111 U/L 0-220 Lab Interpretation (test cod e = 03070-2) Normal [facility] [id number] 18:14:00* Test Item Value Reference Range Interpretation Comme nts POCT PREG (test code = 1605) negative POCT PREG LOT # (test code = 3575) [id number] POCT PREG TEST DATE ( test code = 3576) 2022-07-30 Lab Interpretation (test cod e = 99741-9) Normal [facility] WITH [id number] 18:04:58* Test Item Value Reference Range Interpretation [...] g/dL 31.6-35.1 L RDW-SD (test code = 94566-6) 45.1 fL 39.0-49.9 RDW-CV (test code = 788-0) 13.7 % 12.0-15.5 PLT (test code = 777-3) See_Comment [Automated messa ge] The system which generated this result transmitted reference range: 166 - 358 10*3/?L. The reference range was not used to interpret this result as normal/abnormal. MPV (test code = 98821-0) 9.9 fL 9.5-12.9 NRBC/100 WBC (test code = 0368557060) See_Comment [Automated me ssage] The system which generated this result transmitted reference range: 0.0 - 10.0 /100 WBCs. The reference range was not used to interpret this result as normal/abnormal. NRBC x10^3 (test code = 9878659010) <0.01 See_Comment [Automated messa ge] The system which generated this result transmitted reference range: 10*3/?L. The reference range was not used to interpret this result as normal/abnormal. GRAN MAT (NEUT) % (test code = 770-8) 49.3 % IMM GRAN % (test code = 4745411858) 0.20 % LYMPH % (test code = 736-9) 40.2 % MONO % (test code = 5905-5) 8.5 % EOS % (test code = 713-8) 1.2 % BASO % (test code = 706-2) 0.6 % GRAN MAT x10^3(ANC) (test code = 0703402221) 2.51 10*3/uL 1.88-7.09 IMM GRAN x10^3 (test code = 8715861106) <0.03 0.00-0.06 LYMPH x10^3 (test code = 731-0) 2.04 10*3/uL 1.32-3.29 MONO x10^3 (test code = 742-7) 0.43 10*3/uL 0.33-0.92 EOS x10^3 (test code = 711-2) 0.06 10*3/uL 0.03-0.39 BASO x10^3 (test code = 704-7) 0.03 10*3/uL 0.01-0.07 Lab Interpretation (test code = 54710-4) Abnormal [facility] STREP SCREEN FOR GROUP [id number] 17:23:40* Test Item Value Reference Range Interpretation Comme nts Streptococcus pyogenes (grou p A) antigen (test code = 54327-9) Negative Negative Lab Interpretation (test cod e = 12056-9) Normal [facility] STREP SCREEN FOR GROUP [id number] 17:23:40* Test Item Value Reference Range Interpretation Comme nts Streptococcus pyogenes (grou p A) antigen (test code = 86515-4) Negative Negative Lab Interpretation (test cod e = 33989-6) Normal [facility]-19 (ID NOW RAPID TESTING)2021-04-04 17:13:58* Test Item Value Reference Range Interpretation Comme [facility] SARS-CoV-2 Rapid ID NOW (test code = 51141-1) Not Detected Not Detected CHRISTEN (test code = CHRISTEN) ID NOW COVID-19 As say is an isothermal nucleic acid amplification test intended for the qualitative detection of nucleic acid from SARS-CoV-2 viral RNA in nasopharyngeal (MEDICAL DEVICE SALES REPRESENTATIVE) specimens. It is used under Emergency Use Authorization (EUA) by [facility]. The limit of detection (LOD) of the [...] clinically indicated. Lab Interpretation (test code = 59266-6) Normal [facility]-19 (ID NOW RAPID TESTING)2021-04-04 17:13:58* Test Item Value Reference Range Interpretation Comme [facility] SARS-CoV-2 Rapid ID NOW (test code = 15088-7) Not Detected Not Detected CHRISTEN (test code = CHRISTEN) ID NOW COVID-19 As say is an isothermal nucleic acid amplification test intended for the qualitative detection of nucleic acid from SARS-CoV-2 viral RNA in nasopharyngeal (MEDICAL DEVICE SALES REPRESENTATIVE) specimens. It is used under Emergency Use [...] clinically indicated. Lab Interpretation (test code = 48792-1) Normal [facility] Notes Date/Time Note Provider Source 2024-09-24 18:28:11 RN chaperoned pt and provider for exam. Willett RN [facility] 2024-09-24 17:30:16 Lennie Ortiz is a 44 [...] NAD noted. Waiting on provider for evaluation. [facility] 2024-09-24 17:01:45 Lennie Ortiz is a 44 [...] NAD noted. Roomed for eval Baldwin RN [facility]
[2024-10-29] MEDS ORDERED: HYDROCODONE/APAP 7.5/325 MG TAB ONE (19:05)
[2024-10-29] MEDS ORDERED: predniSONE 20 MG TAB ONE (19:06)
[2024-10-29] MEDS ORDERED: KETOROLAC 30 MG/ML INJ ONE (19:06)
--- NOTE | 2024-10-29 19:11 | EDPHYS ---
Physician Documentation [facility] Name: Lennie Peguero Age: 44 yrs Sex: Female : 1980 Arrival Date: 10/29/2024 Time: 18:19 Bed IW9 Private MD: ED Physician Juni Mccurdy HPI: 10/29 21:13 This 44 yrs old Female presents to ER via Ambulatory with complaints of Leg kb Pain, Numbness. 21:13 Patient is a 44-year-old female who presents for pain to left buttock that radiates kb down left leg that started 2 weeks ago. Reports intermittent numbness, tingling and burning to that leg as well. Denies injury or trauma.. Historical: - Allergies: 19:01 tramadol (itching); cm10 - Home Meds: 19:01 None [Active]; cm10 - PMHx: 19:01 None; cm10 - PSHx: 19:01 Right Ankle; cm10 - Immunization history:: Adult Immunizations up to date. - Infectious Disease History:: Denies. - Social history:: Smoking status: unknown. ROS: 21:14 Constitutional: As per HPI kb Exam: 21:14 Constitutional: This is a well developed, well nourished patient who is awake, alert, kb and in no acute distress. Head/Face: Normocephalic, atraumatic. ENT: Moist Mucous membranes Cardiovascular: Regular rate Respiratory: Respirations even and unlabored. No increased work of breathing. Talking in full sentences Abdomen/GI: Soft, non-tender. No distention Skin: Warm, dry with normal turgor. Normal color. MS/ Extremity: Pulses equal, no cyanosis. Neurovascular intact. Full, normal range of motion. Neuro: Awake and alert, GCS 15, oriented to person, place, time, and situation. 21:14 Musculoskeletal/extremity: Extremities: grossly normal except: noted in the left lower back and left gluteus teresa: pain, tenderness, ROM: intact in all extremities, Circulation is intact in all extremities. Sensation intact. Weight bearing: able to fully bear weight, Vital Signs: 18:59 BP 135 / 90; Pulse 89; Resp 18; Temp 98.5; Pulse Ox 96% on R/A; Weight 79.38 kg; Height cm10 5 ft. 0 in. ; Pain 10/10; 18:59 Body Mass Index 34.18 (79.38 kg, 152.4 cm) cm10 18:59 Pain Scale: Adult cm10 MDM: 19:01 Medical Screening Exam initiated kb 21:14 Differential diagnosis: Sciatica, UTI, strain. Data reviewed: vital signs, nurses kb notes. Test considered but Not performed: CT: CT considered but patient has no bony tenderness. Counseling: I had a detailed discussion with the patient and/or guardian regarding the historical points, exam findings, and any diagnostic results supporting the discharge/admit diagnosis, the need for outpatient follow up, a family practitioner, to return to the emergency department if symptoms worsen or persist or if there are any questions or concerns that arise at home. Administered Medications: 19:13 Drug: Hydrocodone-Acetaminophen PO (7.5 mg-325 mg) 1 tabs PO once Route: PO; cm10 19:18 Follow up: Response: Medication administered at discharge. cm10 19:13 Drug: predniSONE PO 40 mg PO once Route: PO; cm10 19:18 Follow up: Response: Medication administered at discharge. cm10 19:18 Drug: Ketorolac IM 30 mg IM once Route: IM; Site: right gluteus; cm10 19:18 Follow up: Response: Medication administered at discharge. cm10 Disposition Summary: 10/29/24 19:10 Discharge Ordered Notes: Location: Home kb Condition: Stable kb Diagnosis - Sciatica, left side kb Followup: kb - With: Emergency Department - When: As needed - Reason: Worsening of condition Followup: kb - With: Private Physician - When: 2 - 3 days - Reason: Recheck today's complaints, Continuance of care, Re-evaluation by your physician Discharge Instructions: - Discharge Summary Sheet kb - Sciatica, [id number] kb - Back Exercises, [id number] kb Forms: - Medication Reconciliation Form kb - Antibiotic Education kb - Prescription Opioid Use kb - Patient Portal Instructions kb - Leadership Thank You Letter kb Prescriptions: - Prednisone 20 mg Oral Tablet - take 1 tablet ORAL route once daily for 5 days; 5 tablet; Refills: 0, Product kb Selection Permitted - Diclofenac Sodium 75 mg Oral tablet, delayed release (enteric coated) - take 1 tablet ORAL route 2 times per day As needed; 30 tablet; Refills: 0, kb Product Selection Permitted - orphenadrine citrate 100 mg Oral Tablet Sustained Release - take 1 tablet ORAL route 2 times per day As needed; 20 tablet; Refills: 0, kb Product Selection Permitted Addendum: 10/31/2024 11:35 Co-signature as Attending Physician, Juni Mccurdy I agree with the assessment c i and plan of care. I reviewed the patient's care provided by the Advanced Practice Provider and agree with the diagnosis and treatment plan. Signatures: Libby Reddy FNP-C FNP-Ckb Martinez, Clarissa RN RN cm10 Calli, Juni wei Corrections: (The following items were deleted from the chart) 10/29 19:01 19:01 Allergies: No Known Allergies; cm10 10
--- NOTE | 2024-10-29 19:11 | ER ---
Nurse's Notes [facility] Name: Lennie Peguero Age: 44 yrs Sex: Female : 1980 Arrival Date: 10/29/2024 Time: 18:19 Bed IW9 Private MD: Diagnosis: Sciatica, left side Presentation: 10/29 18:59 Chief complaint: Patient states: left leg pain that starts at buttocks and radiates cm10 down left leg onset 2 weeks ago. pt describes the pain as numbness, burning, throbbing, and tingling. Coronavirus screen: Client denies travel out of the [place] in the last 14 days. Ebola Screen: Patient denies travel to an Ebola-affected area in the 21 days before illness onset. Initial Sepsis Screen: Does the patient meet any 2 criteria? No. Patient's initial sepsis screen is negative. Does the patient have a suspected source of infection? No. Patient's initial sepsis screen is negative. Risk Assessment: Do you want to hurt yourself or someone else? Patient reports no desire to harm self or others. Onset of symptoms was October 29, 2024. 18:59 Method Of Arrival: Ambulatory cm10 18:59 Acuity: [place] 4 cm10 Triage Assessment: 19:01 General: Appears in no apparent distress. uncomfortable, Behavior is calm, cooperative. cm10 Neuro: No deficits noted. Level of Consciousness is awake, alert, obeys commands, Oriented to person, place, time, situation, Appropriate for age. Respiratory: No deficits noted. Airway is patent Respiratory effort is even, unlabored, Respiratory pattern is regular, symmetrical. Musculoskeletal: Range of motion: intact in all extremities. 19:20 Pain: Complains of pain in buttocks Pain radiates to left leg. cm10 Historical: - Allergies: 19:01 tramadol (itching); cm10 - Home Meds: 19:01 None [Active]; cm10 - PMHx: 19:01 None; cm10 - PSHx: 19:01 Right Ankle; cm10 - Immunization history:: Adult Immunizations up to date. - Infectious Disease History:: Denies. - Social history:: Smoking status: unknown. Screenin:19 [facility] ED Fall Risk Assessment (Adult) History of falling in the last 3 months, cm10 including since admission No falls in past 3 months (0 pts) Confusion or Disorientation No (0 pts) Intoxicated or Sedated No (0 pts) Impaired Gait No (0 pts) Mobility Assist Device Used No (0 pt) Altered Elimination No (0 pt) Score/Fall Risk Level 0 - 2 = Low Risk Oriented to surroundings, Maintained a safe environment, Hourly rounding (assess needs \T\ fall precautionary measures) done. Abuse screen: Denies threats or abuse. Denies injuries from another. Nutritional screening: No deficits noted. Tuberculosis screening: No symptoms or risk factors identified. Vital Signs: 18:59 BP 135 / 90; Pulse 89; Resp 18; Temp 98.5; Pulse Ox 96% on R/A; Weight 79.38 kg; Height cm10 5 ft. 0 in. ; Pain 10/10; 18:59 Body Mass Index 34.18 (79.38 kg, 152.4 cm) cm10 18:59 Pain Scale: Adult cm10 ED Course: 18:23 Patient arrived in ED. im 19:01 Triage completed. cm10 19:01 Libby Reddy FNP-C is PHCP. kb 19:01 Juni Mccurdy is Attending Physician. kb 19:01 Arm band placed on right wrist. Patient placed in waiting room. cm10 19:19 Patient has correct armband on for positive identification. Provided Education on: cm10 follow-up instructions. 19:19 No provider procedures requiring assistance completed. Patient did not have IV access cm10 during this emergency room visit. Administered Medications: 19:13 Drug: Hydrocodone-Acetaminophen PO (7.5 mg-325 mg) 1 tabs PO once Route: PO; cm10 19:18 Follow up: Response: Medication administered at discharge. cm10 19:13 Drug: predniSONE PO 40 mg PO once Route: PO; cm10 19:18 Follow up: Response: Medication administered at discharge. cm10 19:18 Drug: Ketorolac IM 30 mg IM once Route: IM; Site: right gluteus; cm10 19:18 Follow up: Response: Medication administered at discharge. cm10 Medication: 19:19 VIS not applicable for this client. cm10 Outcome: 19:10 Discharge ordered by . kb 19:20 Discharged to home ambulatory, with friend, cm10 19:20 Condition: good 19:20 Discharge instructions given to patient, Instructed on discharge instructions, follow up and referral plans. medication usage, Demonstrated understanding of instructions, follow-up care, medications, Prescriptions given X 3, 19:20 Patient left the ED. cm10 Signatures: Libby Reddy FNP-C FNP-Waleska Easley Clarissa, RN RN cm10 Corrections: (The following items were deleted from the chart) 19:01 19:01 Allergies: No Known Allergies; cm10 cm10
[2024-10-29 19:38] VITALS: BP 135/90; TEMP 98.5; O2SAT 96
== END 2024-10-29 19:20 | disposition home or self-care (01) ==
LOC: ER 18:19
DX: M54.32 Sciatica, left side (principal)
CPT/HCPCS: 96372; 99284; J7512

== ENCOUNTER 2025-03-06 16:19 | Emergency (ER) | payer OTHER, SELFPAY ==
--- OUTSIDE RECORDS SUMMARY | 2025-03-06 16:24 | XMS REPORT | Continuity of Care Document ---
Author Name Unknown Address [address] [facility] [address] [place] [address] Organization [facility] [place] Address [address] [facility] [address] [place] [address] Care Team Providers Care Network Control Operator Name Role Phone Pcp, Patient Does Not Have A Primary Care Physic marion CARLOS ALBERTO MCKEON Attending Clinician Unavailable CARLOS ALBERTO MCKEON Attending Clinician Unavailable Carlos Alberto Mckeon PA-C Attending Clinician [phone] KAMERON TA Attending Clinician Unavailable Kameron Ta MD Attending Clinician [phone] Tonya Patiño CMA Attending Clinician [phone] TONYA PATIÑO Attending Clinician Unavailable Vicenta Bolden DO Attending Clinician [phone] VICENTA BOLDEN Attending Clinician UnavailKAMERON Moise Admitting Clinician Unavailable Payers Payer Name Policy Type Policy Number Effective Date Expirati on Date Source [facility] [place] [facility] [employer] 7 [id number] 2021 00:00:00 [facility] [id number] 2024 00:00:00 [facility] [place] [facility] [id number] 00:00:00 MEDICAID PENDING PENDING 2020 00:00:00 Problems Condition Name Condition Details Condition Category Status Onset Date Resolution Date Last Treatment Date Treating Clinician Comments Source No known active problems No known active problems Disease [facility] Allergies, Adverse Reactions, Alerts Allergy Name Allergy Type Status Severity Reaction(s) Onset Date Inactive Date Treating Clinician Comments Source NO KNOWN ALLERGIE S Drug Class Active [facility] Social History Social Habit Start Date Stop Date Quantity Comments Source [facility] to SARS-CoV-2 (event) Not sure [facility] Sex assigned at 1980 00:00:00 1980 00:00:00 [facility] Smoking Status Start Date Stop Date Source Tobacco smoking consumption unknown [facility] Medications Ordered Medication Name Filled Medication Name Start Date Stop Date Current Medication? Ordering Clinician Indication Dosage Frequency Signature (SIG) Comments Components Source lidocaine 1% (XYLOCAINE) 10 mg/mL (1 %) injection 5 mL 09-25 01:30: 00 09-25 00:55 :00 No 5mL 5 mL, Infiltrati on, ONCE, 1 dose, On Mon09/24/24 at 1930, VIRIDIANA [facility] cephALEXin 500 mg capsule 09-24 00:00: 00 09-30 05:59 :00 No [id number] 1000mg Take 2 capsules by mouth in the morning and 2 capsules in the evening. Do all this for 5 days. [facility] morpHINE injection 4 mg 2020-07 21:00: 00 05-31 20:00 :00 No 4mg 4 mg, Slow IV Push, ONCE, 1 dose, On Mon05/31/21 at 1600, STAT [facility] ketorolac (TORADOL) injection 30 mg 2020-07 20:45: 00 05-31 20:00 :00 No 30mg 30 mg, Slow IV Push, ONCE, 1 dose, On Mon05/31/21 at 1545, VIRIDIANA
Fa culty member approving Restricted medication : KAMERON TA [facility] iopamidol (ISOVUE 370-500 mL) injection 120 mL 2020-07 18:42: 00 05-31 18:43 :00 No [id number] 120mL 120 mL, Intravenou s, ONCE, 1 dose, On Mon05/31/21 at 1400, Routine [facility] methylPREDN ISolone 4 mg tablets 2020-07 00:00: 00 Yes [id number] Take by mouth SEE-INSTRU CTIONS. follow package directions [facility] diazePAM (VALIUM) 5 mg tablet 2020-07 00:00: 00 Yes [id number] 5mg Take 1 tablet by mouth 3 (three) times daily as needed for Muscle Spasms. [facility] traMADoL 50 mg tablet 04-04 00:00: 00 Yes [id number] 50mg Take 1 tablet by mouth every 6 (six) hours as needed for Pain (scale 4-6). Indication s: acute pain [facility] ibuprofen 600 mg tablet 04-04 00:00: 00 Yes [id number] 600mg Take 1 tablet by mouth every 6 (six) hours as needed for Pain (scale 4-6). [facility] amoxicillin 500 mg capsule 04-04 00:00: 00 Yes [id number] 500mg Take 1 capsule by mouth 3 (three) times daily. [facility] ibuprofen (MOTRIN) 400 mg tablet 03-22 00:00: 00 Yes 400mg Take 1 tablet by mouth every 6 (six) hours as needed for Pain (scale 1-3). [facility] famotidine (PEPCID) 20 mg tablet 03-22 00:00: 00 Yes 20mg Take 1 tablet by mouth at bedtime. [facility] Vital Signs Vital Name Observation Time Observation Value Comments S ource Body height 2024-09-24 23:04:00 152.4 cm [facility] Body weight 2024-09-24 23:04:00 77.111 kg [facility] BMI 2024-09-24 23:04:00 33.20 kg/m2 [facility] Systolic blood pressure 2024-09-24 23:03:00 143 mm[Hg] [facility] Diastolic blood pressure 2024-09-24 23:03:00 87 mm[Hg] [facility] Heart rate 2024-09-24 23:03:00 103 /min [facility] Body temperature 2024-09-24 23:03:00 37.06 Pretty [facility] Respiratory rate 2024-09-24 23:03:00 17 /min [facility] Oxygen saturation in Arterial blood by Pulse oximetry 2024-09-24 23:03:00 97 /min [facility] Systolic blood pressure 2021-05-31 20:05:00 125 mm[Hg] [facility] Diastolic blood pressure 2021-05-31 20:05:00 91 mm[Hg] [facility] Heart rate 2021-05-31 20:05:00 71 /min [facility] Respiratory rate 2021-05-31 20:05:00 18 /min [facility] Oxygen saturation in Arterial blood by Pulse oximetry 2021-05-31 20:05:00 100 /min [facility] Body temperature 2021-05-31 18:08:45 36.44 Pretty [facility] Systolic blood pressure 2021-04-04 16:45:00 133 mm[Hg] [facility] Diastolic blood pressure 2021-04-04 16:45:00 88 mm[Hg] [facility] Heart rate 2021-04-04 16:45:00 84 /min [facility] Body temperature 2021-04-04 16:45:00 37 Pretty [facility] Respiratory rate 2021-04-04 16:45:00 18 /min [facility] Body weight 2021-04-04 16:45:00 70.308 kg [facility] BMI 2021-04-04 16:45:00 30.27 kg/m2 [facility] Oxygen saturation in Arterial blood by Pulse oximetry 2021-04-04 16:45:00 100 /min [facility] Systolic blood pressure 2020-12-29 15:53:00 130 mm[Hg] [facility] Diastolic blood pressure 2020-12-29 15:53:00 82 mm[Hg] [facility] Heart rate 2020-12-29 15:53:00 93 /min [facility] Body temperature 2020-12-29 15:53:00 36.72 Pretty [facility] Respiratory rate 2020-12-29 15:53:00 18 /min [facility] Body height 2020-12-29 15:53:00 152.4 cm [facility] Body weight 2020-12-29 15:53:00 75.751 kg [facility] BMI 2020-12-29 15:53:00 32.61 kg/m2 [facility] Oxygen saturation in Arterial blood by Pulse oximetry 2020-12-29 15:53:00 100 /min [place] [facility] Procedures Procedure Date / Time Performed Performing Clinician Source POCT TEST 2024-09-24 23:40:00 Carlos Alberto Mckeon [facility] COMP. METABOLIC PANEL ([id number]) 2024-09-24 23:39:00 Carlos Alberto Mckeon [facility] CBC WITH DIFF 2024-09-24 23:39:00 Carlos Alberto Mckeon [facility] URINALYSIS 2024-09-24 23:39:00 Carlos Alberto Mckeon [facility] CT ABDOMEN PELVIS W CONTRAST 2021-05-31 18:50:14 Kameron Ta [facility] POCT TEST 2021-05-31 18:14:00 Wanda Ta [facility] URINALYSIS 2021-05-31 18:13:00 Kameron Ta [facility] LIPASE 2021-05-31 17:49:00 Kameron Ta [facility] TROPONIN I 2021-05-31 17:49:00 [facility] COMP. METABOLIC PANEL ([id number]) 2021-05-31 17:49:00 Kameron Ta [facility] CBC WITH DIFF 2021-05-31 17:49:00 Kameron Ta [facility] PROTHROMBIN TIME / INR 2021-05-31 17:49:00 Trino Ta [facility] ACTIVATED PARTIAL THRMPLAS BRIDGETTE 2021-05-31 17:49:00 Kameron Ta [facility] N-TERMINAL PRO-BNP 2021-05-31 17:49:00 Kameron Ta [facility] ASSIGNMENT OF BENEFITS 2021-05-31 17:37:13 Docto r Unassigned, [place] [facility] XR CHEST 1 2021-05-31 15:57:40 Kameron Ta [facility] XR SPINE THORACIC 2 2021-05-31 15:57:40 Trino Ta [facility] CONSENT/REFUSAL FOR DIAGNOSIS AND TREATMENT 2021-05-31 15:01:39 Doctor Unassigned, [place] [facility] RAPID STREP SCREEN FOR GROUP A 2021-04-04 16:46:00 Kameron Ta [facility] COVID-19 (ID NOW RAPID TESTING) 2021-04-04 16:46:00 Kameron Ta [facility] CONSENT/REFUSAL FOR DIAGNOSIS AND TREATMENT 2021-04-04 16:41:31 Doctor Unassigned, [place] [facility] NOTICE OF PRIVACY PRACTICES 2020-12-29 15:49:02 Doctor Unassigned, [place] [facility] CONSENT/REFUSAL FOR DIAGNOSIS AND TREATMENT 2020-12-29 15:48:43 Doctor Unassigned, [place] [facility] Encounters Start Date/Time End Date/Time Encounter Type Admission Type Attending [facility] Care Department Encounter ID Source 2021-08-11 13:56:21 Outpatient HHD HHD [id number] - [id number] [facility] ent 2024-09-24 17:05:00 2024-09-24 19:51:00 Emergency X CARLOS ALBERTO MCKEON [facility] ERT [id number] [facility] 2024-09-24 17:05:00 2024-09-24 19:51:00 Emergency Carlos Alberto Mckeon AT [place] ([facility]) [id number] [facility] 2024-01-16 11:40:43 2024-01-16 11:40:43 Outpatient SFA [id number] [id number] Roberto Carlos Coppola 2023-12-14 15:27:26 2023-12-14 15:27:26 Outpatient SFA [id number] [id number] Roberto Carlos Coppola 2021-05-31 10:19:00 2021-05-31 15:14:00 Emergency X KAMERON TA [facility] ERT [id number] [facility] 2021-05-31 10:19:00 2021-05-31 15:14:00 Emergency Kameron Ta [facility] [id number] [id number] [id number] [facility] 2021-05-20 09:51:24 2021-05-20 12:39:13 Office Visit Tonya Patiño [facility] [id number] 2021-05-20 07:51:24 2021-05-20 10:39:13 Outpatient TONYA PATIÑO D [facility]HD [id number] [facility] 2021-04-04 11:47:00 2021-04-04 13:08:00 Emergency Kameron Ta [facility] [id number] [id number] [id number] [facility] 2021-04-04 11:47:00 2021-04-04 11:47:00 Emergency X KAMERON TA [facility] ERT [id number] [facility] 2020-12-29 10:54:00 2020-12-29 11:20:00 Emergency Vicenta Bolden [facility] [id number] [id number] [facility] 2020-12-29 10:48:00 2020-12-29 10:48:00 Emergency Lana VICENTA BOLDEN [facility] ERT [id number] [facility] Results Test Description Test Time Test Comments Results Result Co mments Source [facility] WITH [id number] 23:50:07* Test Item Value Reference Range Interpretation [...] 31.9 g/dL 31.6-35.1 RDW-SD (test code = 28292-0) 43.8 fL 39.0-49.9 RDW-CV (test code = 788-0) 13.2 % 12.0-15.5 PLT (test code = 777-3) 202 166-358 MPV (test code = 37753-5) 9.9 fL 9.5-12.9 NRBC/100 WBC (test code = 3734698554) 0.0 0.0-10.0 NRBC x10^3 (test code = 2774096147) See_Comment [Automated me ssage] The system which generated this result transmitted reference range: 10*3/?L. The reference range was not used to interpret this result as normal/abnormal. GRAN MAT (NEUT) % (test code = 770-8) 60.6 % IMM GRAN % (test code = 8875658008) 0.30 % LYMPH % (test code = 736-9) 28.9 % MONO % (test code = 5905-5) 8.0 % EOS % (test code = 713-8) 1.5 % BASO % (test code = 706-2) 0.7 % GRAN MAT x10^3(ANC) (test code = 2233031101) 4.49 10*3/uL 1.88-7.09 IMM GRAN x10^3 (test code = 1125499899) 0.00-0.06 LYMPH x10^3 (test code = 731-0) 2.14 10*3/uL 1.32-3.29 MONO x10^3 (test code = 742-7) 0.59 10*3/uL 0.33-0.92 EOS x10^3 (test code = 711-2) 0.11 10*3/uL 0.03-0.39 BASO x10^3 (test code = 704-7) 0.05 10*3/uL 0.01-0.07 [facility] [id number] 23:40:00* Test Item Value Reference Range Interpretation Comme nts POCT PREG (test code = 1605) Negative On board controls acceptable with C Line (test code = 3574) Yes Lab Interpretation (test cod e = 32394-2) Normal [facility] [id number] 08:01:55* Test Item Value Reference Range Interpretation Comme nts HEMOGLOBIN A1c (test code = 16112) 5.2 % 4.2-5.6 UNLESS OTHERWISE INDICATED, ALL TESTING PERFORMED AT [facility] [address] [place] [address] QA ANALYST: SHMUEL SERRANO M.D. CLIA NUMBER [id number] [place]. [id number] CBC W/AUTO DIFF WITH [id number] 07:10:52* Test Item Value Reference Range Interpretation [...] 0.00-0.10 ABS NUCLEATED RBCS (test code = 02668) 0.00 K/UL 0.00-0.11 [id number] 06:16:52* Test Item Value Reference Range Interpretation Comme nts RPR RESULT (test code = 3501) NON-REACTIVE NON-REACTIVE RPR TITER (test code = 3500) NOT INDIC. TITER NOT INDIC. HEPATITIS PANEL, [id number] 06:00:10* Test Item Value Reference Range Interpretation Comme nts HEPATITIS A IgM (test code = 87481) NON-REACTIVE NON-REACTIVE HEPATITIS B CORE IgM (test code = 4644) NON-REACTIVE NON-REACTIVE HEPATITIS B SURF AG (test code = 2739) NON-REACTIVE NON-REACTIVE HEPATITIS C ANTIBODY (test code = 4675) NON-REACTIVE NON-REACTIVE INTERPRETATION HEPATITIS A: (test code = 2552) (NOTE) Hepatitis A serology shows no evidence of acute hepatitis A. INTERPRETATION HEPATITIS B: (test code = 54922) (NOTE) Hepatitis B serology shows no evidence of acute hepatitis B andno indication of exposure to hepatitis B virus in the previous june eight months. INTERPRETATION HEPATITIS C: (test code = 37396) (NOTE) Hepatitis C serology shows no evidence of exposure to hepatitisC virus at this time. It can take up to 12 months after exposure tothe hepatitis C virus for antibodies to become detectable in the blood in certain patients. VITAMIN B 12 AND FOLIC [id number] 05:58:15* Test Item Value Reference Range Interpretation [...] . . . . UG/L >=6.0 TROPONIN [id number] 18:35:03* Test Item Value Reference Range Interpretation Comments TROPONIN I (test code = 9512095680) <0.012 See_Comment [Automated message] The system which [...] of biotin. Lab Interpretation (test code = 22783-6) Normal [facility] [id number] 18:31:41* Test Item Value Reference Range Interpretation Comme nts NT-proBNP (test code = 7899521317) 53 pg/mL See_Comment [Automated message] The system which generated this result transmitted reference range: <=125. The reference range was not used to interpret this result as normal/abnormal. CHRISTEN (test code = CHRISTEN) Biotin has been reported to cause a negative bias, interpret results relative to patient's use of biotin. Lab Interpretation (test code = 25669-9) Normal [facility] THRMPLAS [id number] 18:21:42* Test Item Value Reference Range Interpretation Comme [facility] APTT Patient (test code = 3173-2) See_Comment [Automated message] The system which generated this result transmitted reference range: 23 - 38 Seconds. The reference range was not used to interpret this result as normal/abnormal. CHRISTEN (test code = CHRISTEN) The [facility] patient population mean normal value for aPTT is 30 seconds. Lab Interpretation (test code = 10808-1) Normal [facility] HospitalPROT[facility]OMBIN TIME / [id number] 18:19:42* Test Item Value Reference Range Interpretation Comme [facility] PROTIME PATIENT (test code = 5964-2) [...] the indications. Lab Interpretation (test code = 37739-8) Abnormal [facility] METABOLIC PANEL (82900)2021-05-31 18:17:02* Test Item Value Reference Range Interpretation Comme [facility] NA (test code = 5056612036) 138 mmol/L 135-145 K (test code = 3540333228) 4.0 mmol/L 3.5-5.0 CL (test code = 1925344948) 104 mmol/L 98-108 CO2 TOTAL (test code = 1356219658) 30 mmol/L 23-31 AGAP (test code = 1153041389) 2-16 BUN (test code = 9521702398) 11 mg/dL 7-23 GLUCOSE (test code = 0968496761) 98 mg/dL 70-110 CREATININE (test code = 2845975101) 0.67 mg/dL 0.50-1.04 TOTAL BILI (test code = 6308957448) 0.3 mg/dL 0.1-1.1 CALCIUM (test code = 0212558426) 9.3 mg/dL 8.6-10.6 T PROTEIN (test code = 6707999432) 8.0 g/dL 6.3-8.2 ALBUMIN (test code = 1158700280) 4.3 g/dL 3.5-5.0 ALK PHOS (test code = 8427894665) 86 U/L 34-122 ALTv (test code = 1742-6) 19 U/L 5-35 AST(SGOT) (test code = 7512689516) 26 U/L 13-40 eGFR (test code = 6869086230) mL/min/1.73m2 CHRISTEN (test code = CHRISTEN) Association [...] or urine or abnormalities in imaging tests). [facility] 18:17:02* Test Item Value Reference Range Interpretation Comme nts LIPASE (test code = 3700437022) 111 U/L 0-220 Lab Interpretation (test cod e = 39166-5) Normal [facility]PO[facility] [id number] 18:14:00* Test Item Value Reference Range Interpretation Comme nts POCT PREG (test code = 1605) negative POCT PREG LOT # (test code = 3575) [id number] POCT PREG TEST DATE ( test code = 3576) 2022-07-30 Lab Interpretation (test cod e = 97894-2) Normal [facility] WITH [id number] 18:04:58* Test Item Value Reference Range Interpretation [...] g/dL 31.6-35.1 L RDW-SD (test code = 23506-1) 45.1 fL 39.0-49.9 RDW-CV (test code = 788-0) 13.7 % 12.0-15.5 PLT (test code = 777-3) See_Comment [Automated messa ge] The system which generated this result transmitted reference range: 166 - 358 10*3/?L. The reference range was not used to interpret this result as normal/abnormal. MPV (test code = 07641-1) 9.9 fL 9.5-12.9 NRBC/100 WBC (test code = 5098420681) See_Comment [Automated me ssage] The system which generated this result transmitted reference range: 0.0 - 10.0 /100 WBCs. The reference range was not used to interpret this result as normal/abnormal. NRBC x10^3 (test code = 3751297628) <0.01 See_Comment [Automated messa ge] The system which generated this result transmitted reference range: 10*3/?L. The reference range was not used to interpret this result as normal/abnormal. GRAN MAT (NEUT) % (test code = 770-8) 49.3 % IMM GRAN % (test code = 6662439392) 0.20 % LYMPH % (test code = 736-9) 40.2 % MONO % (test code = 5905-5) 8.5 % EOS % (test code = 713-8) 1.2 % BASO % (test code = 706-2) 0.6 % GRAN MAT x10^3(ANC) (test code = 8205941910) 2.51 10*3/uL 1.88-7.09 IMM GRAN x10^3 (test code = 3642536942) <0.03 0.00-0.06 LYMPH x10^3 (test code = 731-0) 2.04 10*3/uL 1.32-3.29 MONO x10^3 (test code = 742-7) 0.43 10*3/uL 0.33-0.92 EOS x10^3 (test code = 711-2) 0.06 10*3/uL 0.03-0.39 BASO x10^3 (test code = 704-7) 0.03 10*3/uL 0.01-0.07 Lab Interpretation (test code = 87754-2) Abnormal [facility] STREP SCREEN FOR GROUP [id number] 17:23:40* Test Item Value Reference Range Interpretation Comme nts Streptococcus pyogenes (grou p A) antigen (test code = 19503-7) Negative Negative Lab Interpretation (test cod e = 68373-1) Normal [facility] STREP SCREEN FOR GROUP [id number] 17:23:40* Test Item Value Reference Range Interpretation Comme nts Streptococcus pyogenes (grou p A) antigen (test code = 54039-5) Negative Negative Lab Interpretation (test cod e = 93039-6) Normal [facility]-19 (ID NOW RAPID TESTING)2021-04-04 17:13:58* Test Item Value Reference Range Interpretation Comme [facility] SARS-CoV-2 Rapid ID NOW (test code = 79871-3) Not Detected Not Detected CHRISTEN (test code = CHRISTEN) ID NOW COVID-19 As say is an isothermal nucleic acid amplification test intended for the qualitative detection of nucleic acid from SARS-CoV-2 viral RNA in nasopharyngeal (IMAGERY ANALYST) specimens. It is used under Emergency [...] clinically indicated. Lab Interpretation (test code = 43302-2) Normal [facility]-19 (ID NOW RAPID TESTING)2021-04-04 17:13:58* Test Item Value Reference Range Interpretation Comme [facility] SARS-CoV-2 Rapid ID NOW (test code = 06964-2) Not Detected Not Detected CHRISTEN (test code = CHRISTEN) ID NOW COVID-19 As say is an isothermal nucleic acid amplification test intended for the qualitative detection of nucleic acid from SARS-CoV-2 viral RNA in nasopharyngeal (IMAGERY ANALYST) specimens. It is used under Emergency [...] clinically indicated. Lab Interpretation (test code = 78116-1) Normal [facility] Notes Date/Time Note Provider Source 2024-09-24 18:28:11 RN chaperoned pt and provider for exam. Willett RN [facility] 2024-09-24 17:30:16 Lennie Ortiz is a 44 [...] NAD noted. Waiting on provider for evaluation. [facility] 2024-09-24 17:01:45 Lennie Ortiz is a [...] NAD noted. Roomed for eval Baldwin RN [facility]
--- NOTE | 2025-03-06 17:08 | ER ---
Nurse's Notes [facility] Name: Lennie Peguero Age: 44 yrs Sex: Female : 1980 Arrival Date: 03/06/2025 Time: 16:19 Bed IW3 Private MD: Diagnosis: Strain of muscle and tendon of back wall of thorax;Thoracic back pain Presentation: 03/06 17:03 Chief complaint: Patient states: upper back pain that is worse when looking up or me1 turning, started yesterday. Pain level 8/10. Denies injury. Coronavirus screen: Vaccine status: Patient reports being unvaccinated. Ebola Screen: No symptoms or risks identified at this time. Initial Sepsis Screen: Does the patient meet any 2 criteria? No. Patient's initial sepsis screen is negative. Does the patient have a suspected source of infection? No. Patient's initial sepsis screen is negative. Risk Assessment: Do you want to hurt yourself or someone else? Patient reports no desire to harm self or others. Onset of symptoms was March 05, 2025. 17:03 [place] Of [place] [facility] [place] Acuity: [place] 4 me1 Triage Assessment: 17:06 General: Appears uncomfortable, well groomed, well developed, well nourished, Behavior me1 is calm, cooperative, appropriate for age. Pain: Complains of pain in back Pain does not radiate. Pain currently is 8 out of 10 on a pain scale. Quality of pain is described as tightness Pain began 1 day ago. Is continuous. EENT: No signs and/or symptoms were reported regarding the EENT system. Neuro: Level of Consciousness is awake, alert, obeys commands, Oriented to person, place, time, situation, Appropriate for age. Cardiovascular: Patient's skin is warm and dry. Respiratory: Airway is patent Respiratory effort is even, unlabored, Respiratory pattern is regular, symmetrical. GI: No signs and/or symptoms were reported involving the gastrointestinal system. : No signs and/or symptoms were reported regarding the genitourinary system. Derm: Skin is intact, is healthy with good turgor, Skin is normal. Musculoskeletal: Circulation, motion, and sensation intact. Range of motion: intact in all extremities, Reports pain in back. 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 - Infectious Disease History:: Denies. - Social history:: Smoking status: Patient reports the use of cigarette tobacco products, smokes one-half pack cigarettes per day. Screenin:07 [facility] ED Fall Risk Assessment (Adult) History of falling in the last 3 months, me1 including since admission No falls in past 3 months (0 pts) Confusion or Disorientation No (0 pts) Intoxicated or Sedated No (0 pts) Impaired Gait No (0 pts) Mobility Assist Device Used No (0 pt) Altered Elimination No (0 pt) Score/Fall Risk Level 0 - 2 = Low Risk Maintained a safe environment, Provided non-skid footwear, Hourly rounding (assess needs \T\ fall precautionary measures) done. Abuse screen: Denies threats or abuse. Nutritional screening: No deficits noted. Tuberculosis screening: No symptoms or risk factors identified. Assessment: 17:07 Reassessment: See triage assessment. me1 Vital Signs: 17:03 BP 121 / 82; Pulse 85; Resp 20; Temp 98.6; Pulse Ox 100% ; Weight 74.84 kg; Height 5 me1 ft. 0 in. ; Pain 8/10; 17:03 Body Mass Index 32.22 (74.84 kg, 152.4 cm) me1 17:03 Pain Scale: Adult ky1 ED Course: 16:20 Patient arrived in ED. al6 16:27 Oliver Garner NP is PHCP. cr8 16:27 Sera Yan MD is Attending Physician. cr8 17:06 Triage completed. me1 17:07 Patient has correct armband on for positive identification. Provided Education on: POC. me1 Verbalized understanding.. 17:07 No provider procedures requiring assistance completed. Patient did not have IV access me1 during this emergency room visit. 17:10 Arm band placed on Patient placed in waiting room. me1 Administered Medications: No medications were administered Medication: 17:07 VIS not applicable for this client. me1 Outcome: 17:08 Discharge ordered by MD. villegas 17:11 Discharged to home ambulatory, ky1 17:11 Condition: stable 17:11 Discharge instructions given to patient, Instructed on discharge instructions, follow up and referral plans. Demonstrated understanding of instructions, follow-up care, 17:11 Patient left the ED. me1 Signatures: Karime Mattson RN RN me1 Lu Reis al6 Oliver Garner NP CHILD CARE COOK cr8
--- NOTE | 2025-03-06 17:08 | EDPHYS ---
Physician Documentation [facility] Name: Lennie Peguero Age: 44 yrs Sex: Female : 1980 Arrival Date: 03/06/2025 Time: 16:19 Bed IW3 Private MD: ED Physician Sera Yan HPI: 03/06 17:04 This 44 yrs old Female presents to ER via Ambulatory with complaints of Back cr8 Pain, Neck Problem. 17:04 Patient is a 44-year-old female with history of cosmetic surgery comes in emergency cr8 room complaining of upper back pain that began yesterday. Reports pain is worse with standing, neck extension, twisting and turning. Reports certain movements makes it worse. She has had no fever numbness tingling. She denies chest pain dyspnea. Has taken Tylenol and Aleve at home. Offered to give her some steroids here but she prefers to go with her masseuse.. 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 - Infectious Disease History:: Denies. - Social history:: Smoking status: Patient reports the use of cigarette tobacco products, smokes one-half pack cigarettes per day. ROS: 17:04 Constitutional: as per HPI cr8 Exam: 17:04 Constitutional: This is a well developed, well nourished patient who is awake, alert, cr8 and in no acute distress. Back: No spinal tenderness. No costovertebral tenderness. Full range of motion. Mild tenderness to palpation of the upper thoracic paraspinous muscles. Pain is worsened with neck extension. Pain is also worsened with bending over. No vertebral step-offs, no vertebral tenderness, Skin: Warm, dry with normal turgor. Normal color with no rashes, no lesions, and no evidence of cellulitis. MS/ Extremity: Pulses equal, no cyanosis. Neurovascular intact. Full, normal range of motion. Neuro: Awake and alert, GCS 15, oriented to person, place, time, and situation. Cranial nerves II-XII grossly intact. Motor strength 5/5 in all extremities. Sensory grossly intact. Vital Signs: 17:03 BP 121 / 82; Pulse 85; Resp 20; Temp 98.6; Pulse Ox 100% ; Weight 74.84 kg; Height 5 me1 ft. 0 in. ; Pain 8/10; 17:03 Body Mass Index 32.22 (74.84 kg, 152.4 cm) me1 17:03 Pain Scale: Adult me1 MDM: 16:43 Medical Screening Exam initiated cr8 17:04 Data reviewed: vital signs, nurses notes. cr8 Administered Medications: No medications were administered Disposition Summary: 03/06/25 17:08 Discharge Ordered Notes: Location: Home cr8 Condition: Stable cr8 Diagnosis - Strain of muscle and tendon of back wall of thorax cr8 - Thoracic back pain cr8 Followup: cr8 - With: Private Physician - When: 2 - 3 days - Reason: Recheck today's complaints, Continuance of care Followup: cr8 - With: Emergency Department - When: As needed - Reason: Trouble breathing, Worsening of condition, Recheck today's complaints, chest pain Discharge Instructions: - Discharge Summary Sheet cr8 - Acute Back Pain, Adult cr8 - Muscle Strain cr8 Forms: - Medication Reconciliation Form cr8 - Patient Portal Instructions cr8 - Leadership Thank You Letter cr8 Signatures: Karime Mattson RN RN ia1 Oliver Garner NP AUTOMATION TESTER cr8
[2025-03-06 17:18] VITALS: BP 121/82; TEMP 98.6; O2SAT 100
== END 2025-03-06 17:11 | disposition home or self-care (01) ==
LOC: ER 16:19
DX: S29.012A Strain of muscle and tendon of back wall of thorax, initial encounter (principal)
CPT/HCPCS: 99282